=== PATIENT | female | born 1955 | race Caucasian/White ===

== ENCOUNTER → 2016-03-29 | Outpatient (CLI) | payer BC ==
[~2016-03-29] MED LIST: ACYC200C PO; BENZ200C25 PO; CYCL10TA9 PO; DIPH50CA PO; DOCU100C37 PO; ESTR1TAB24 PO; FERR220S12 PO; FLUT9.9S NS; GABA600T2 PO; HYDR-2889 PO; IBP800T PO; IBUP-1780 PO; L.AC1CAP6 PO; LEVO500T69 PO; LORA10TA2 PO; MEDR2.5T6 PO; MINE473O3 PO; OMEP20CA12 PO; OXYC-465 PO; PRD20T PO; TRAZ150T42 PO; VENL75TA6 PO
--- OUTSIDE RECORDS SUMMARY | 2016-03-29 09:27 | XMS REPORT | Continuity of Care Document ---
Author Author [facility] Organization [facility] Address Unknown Phone Unavailable Care Team Providers Care Helicopter Dispatcher Name Role Phone MARKS, MILLICENT MORENO PCP Insurance Providers Payer Name Policy Number Subscriber Name Relationship [facility] [id number] Johnathan Farias E 01 Advance Directives Directive Response Recorded Date/Time Advance Directives No 12/04/15 1:25pm Health Care Power of Technician'S Helper No 12/04/15 1:25pm Organ Donor No 12/04/15 1:25pm Resuscitation Status Full Code 12/04/15 1:25pm Problems No problem information available. Medications Current Home Medications Medication Dose Units Route Directions Days/Qty Instructions Start Date Omeprazole 20 Mg 20 Mg Oral Daily 11/22/12 Venlafaxine Hcl 75 Mg 75 Mg Oral Daily 11/22/12 Trazodone Hcl 150 Mg 150 Mg Oral Bedtime 11/22/12 Cyclobenzaprine Hcl (Flexeril) 10 Mg 1 Each Oral Three Times A Day And Prn 10 11/22/12 Fluticasone Propionate 9.9 Ml 9.9 Ml Nasal As Needed 12/13/14 Acyclovir 200 Mg 200 Mg Oral As Needed 12/13/14 Gabapentin 600 Mg 600 Mg Oral Three Times A Day 12/13/14 Diphenhydramine Hcl 50 Mg 50 Mg Oral As Needed as needed for Sleep 12/13/14 Mineral Oil 473 Ml 1 Tsp Oral As Needed as needed for Constipation 12/13/14 L.acidoph & ParacaseiB.lactis 1 Each 1 Each Oral Daily 12/13/14 Estradiol 1 Mg 1 Mg Oral Daily 12/13/14 Ibuprofen 800 Mg 800 Mg Oral Give Every 6 Hr On Schedule 60 12/20/14 Oxycodone Hcl/Acetaminophen 1 Each 1-2 Tab Oral Every 4HRS as needed for Pain 60 12/20/14 Docusate Sodium 100 Mg 100 Mg Oral Twice A Day 60 12/20/14 Past Home Medications Medication Directions Ordered Status Hydrocodone Bit/Acetaminophen 1 Each Tablet, 1 Each Oral Q4-6HR as needed 07/30 Discontinued Ferrous Sulfate 220 Mg/5 Ml Solution, 220 Mg Oral Daily 11/22/12 Discontinued Loratadine 10 Mg Tablet, 10 Mg Oral Daily 11/22/12 Discontinued Prednisone 20 Mg Tab, 40 Mg Oral Daily 11/22/12 Discontinued Benzonatate (Tessalon Perles) 200 Mg Capsule, 1 Each Oral Q8hr Prn 11/22/12 Discontinued Levofloxacin 500 Mg Tab, 1 Each Oral Daily 11/22/12 Discontinued Ibuprofen 800 Mg Tab, 800 Mg Oral Give Every 8 Hrs On Schedule 11/22/12 Discontinued Medroxyprogesterone Acetate 2.5 Mg Tablet, 2.5 Mg Oral Daily 12/13/14 Discontinued Social History Social History Problem Response Recorded Date/Time Alcohol Use Occasionally Uses 12/20/2014 5:41pm Recreational Drug Use No 12/20/2014 5:41pm Recent Foreign Travel No 12/04/2015 1:25pm Recent Infectious Disease Exposure No 12/04/2015 1:25pm Sexually Transmitted Disease Y HERPES 12/20/2014 5:41pm HIV/AIDS No 12/20/2014 5:41pm Do you dip or chew tobacco? No 12/20/2014 5:41pm Sexually Transmitted Disease Y HERPES 12/20/2014 5:41pm Hospital Discharge Instructions No hospital discharge instructions. Plan of Care Discharge Date 12/04/15 2:00pm Instructions/Education Provided DR. PASTRANA-POST EPIDURAL INST Prescriptions See Medication Section Functional Status No functional status results. Allergies, Adverse Reactions, Alerts Allergen Type Severity Reaction Status Last Updated Penicillins ([id number]) Adverse Reaction Intermediate rash, dyspnea Active 11/22/12 Immunizations No immunization records. Vital Signs Acute Vital Signs Vital Response Date/Time Temperature (Fahrenheit) 97.7 degrees F (97.6 - 99.5) 12/04/2015 1:36pm Temperature (Calculated Celsius) 36.57437 degrees C (36.4 - 37.5) 12/04/2015 1:36pm Temperature Source Tympanic 12/04/2015 1:36pm Pulse Rate (adult) 88 bpm (60 - 90) 12/04/2015 1:36pm Respiratory Rate 18 bpm (12 - 24) 12/04/2015 1:36pm O2 Sat by Pulse Oximetry 98 % (88 - 100) 12/04/2015 1:36pm Blood Pressure 125/65 mm Hg 12/04/2015 1:59pm Blood Pressure Mean 85 mm Hg 12/04/2015 1:59pm Pain Numeric Pain Scale 6 12/04/2015 1:35pm Height (Feet) 5 feet 12/04/2015 1:26pm Height (Inches) 5.00 inches 12/04/2015 1:26pm Height (Calculated Centimeters) 165.516973 cm 12/04/2015 1:26pm Weight (Pounds) 180 pounds 12/04/2015 1:26pm Weight (Ounces) 0.0 oz 12/04/2015 1:26pm Weight (Calculated Grams) 34640.63 gm 12/04/2015 1:26pm Weight (Calculated Kilograms) 81.459408 kilograms 12/04/2015 1:26pm Calculated BMI 30.0 12/04/2015 1:26pm Results No known relevant diagnostic tests, laboratory data and/or discharge summary. Procedures No known history of procedures. Encounters Encounter Location Arrival/Admit Date Discharge/Depart Date Attending Provider Departed Clinic [facility] 12/04/15 12:59pm 12/04/15 2: 00pm MONAE PASTRANA MD
--- NOTE | 2016-03-29 17:00 | Diagnostic Imaging Report ---
PROCEDURE: US abdomen complete. TECHNIQUE: Multiple real-time grayscale images were obtained over the abdomen in various projections. INDICATION: Generalized abdominal pain. FINDINGS: The pancreas is obscured by bowel gas. The distal abdominal aorta is visualized and is 1.7 cm in caliber, normal. The proximal and midabdominal aorta is obscured. The liver demonstrates no focal mass. There is hepatopetal flow in the portal vein. The gallbladder demonstrates no stones or wall thickening. No pericholecystic fluid. The CBD is obscured. No intrahepatic biliary dilatation is seen. The spleen is 10.8 cm in length, normal. The left kidney is 11.4 and the right kidney is 11.8 cm in length. No hydronephrosis. No focal parenchymal lesion is seen. No ascites or fluid collection is seen. The IVC is obscured by bowel loops. IMPRESSION: No definite abnormality. Dictated by: Dictated on workstation # [id number]
== END ==
LOC: RAD 09:23
PROVIDERS: ATTEND Internal Medicine
DX: R10.84 Generalized abdominal pain (principal)
CPT/HCPCS: 76700

== ENCOUNTER 2016-04-01 11:32 | Outpatient (CLI) | payer BC ==
[~2016-04-01] VITALS: Ht 165.1 cm; Wt 77.1 kg
--- OUTSIDE RECORDS SUMMARY | 2016-04-01 11:35 | XMS REPORT | Continuity of Care Document ---
Author Author [facility] Organization [facility] Address Unknown Phone Unavailable Care Team Providers Care Manager Corporate Strategy Name Role Phone MARKS, MILLICENT MORENO PCP Insurance Providers Payer Name Policy Number Subscriber Name Relationship [facility] [id number] Johnathan Farias E 01 Advance Directives Directive Response Recorded Date/Time Advance Directives No 12/04/15 1:25pm Health Care Power of Pulverizing And Sifting Operator No 12/04/15 1:25pm Organ Donor No 12/04/15 [...] Type Severity Reaction Status Last Updated Penicillins ([id number]) Adverse Reaction Intermediate rash, dyspnea Active 11/22/12 Immunizations No immunization records. Vital Signs Acute Vital Signs Vital Response Date/Time Temperature (Fahrenheit) 97.7 degrees F (97.6 - 99.5) 12/04/2015 1:36pm Temperature (Calculated Celsius) 36.37364 degrees C (36.4 - 37.5) 12/04/2015 1:36pm [...] 5.00 inches 12/04/2015 1:26pm Height (Calculated Centimeters) 165.285691 cm 12/04/2015 1:26pm Weight (Pounds) 180 pounds 12/04/2015 1:26pm Weight (Ounces) 0.0 oz 12/04/2015 1:26pm Weight (Calculated Grams) 88639.63 gm 12/04/2015 1:26pm Weight (Calculated Kilograms) 81.731643 kilograms 12/04/2015 1:26pm Calculated BMI 30.0 12/04/2015 1:26pm Results No known relevant diagnostic tests, laboratory data and/or discharge summary. Procedures No known history of procedures. Encounters Encounter Location Arrival/Admit Date Discharge/Depart Date Attending Provider Departed Clinic [facility] 12/04/15 12:59pm 12/04/15 2: 00pm MONAE PASTRANA MD
[2016-04-01] MEDS ORDERED: TRIAMCINOLONE ACET (KENALOG-40) 40 MG/ML 1 ML VIAL ONE (11:47)
[2016-04-01] MEDS ORDERED: BUPIVACAINE 0.25% 30 ML (SENSORCAINE) VIAL ONE (11:47)
[2016-04-01 11:53] VITALS: BP 109/69
[2016-04-01 12:38] VITALS: BP 115/65
--- NOTE | 2016-04-01 14:51 | Pain Medicine-Procedure ---
Procedure Pre-Op/Post-Op Diagnosis Diagnosis: Disc disorder with radiculopathy, lumbar Indications for Operation Low back pain Attending Surgeon Naya Procedure Date of Service: Apr 01, 2016 Procedure: Lumbar Epidural Steroid Injection at the L4-L5 level under Fluoroscopic Guidance Procedure: Patient was identified in the holding area. After risks, benefits, and alternatives were discussed with the patient, informed consent was obtained. Patient was brought to the fluoroscopy suite and placed prone on the procedure room table. A time out was performed. Vital signs were monitored throughout the procedure. The patients low back was prepped and draped in the usual sterile fashion. The patients skin was anesthetized using 2% Lidocaine. A Tuohy needle was inserted and advanced to the L4-L5 epidural space under fluoroscopic guidance using the loss of resistance technique and intermittent projection of fluoroscopy. There was no paresthesia with needle placement. The needle position was confirmed in both the AP and lateral view. After negative aspiration 2ml of contrast was injected under live fluoroscopy which showed good spread of the contrast in the epidural space at the appropriate level, there was no intravascular or subarachnoid spread. Again, after negative aspiration for heme or CSF, 2 ml of 0.25% Bupivicaine, 2ml of preservative free normal saline, and 80mg of Kenalog was injected. The needle was removed and a sterile bandage was placed and the patient was transferred to the recovery area in stable condition. After a brief period of observation, patient was discharged to home with no new neurological deficits and no apparent complications. Complications None MONAE PASTRANA MD Apr 01, 2016 2:51 pm
== END 2016-04-01 12:39 ==
LOC: CARD 11:32
PROVIDERS: ATTEND Pain Medicine Pain Medicine
DX: M51.16 Intervertebral disc disorders with radiculopathy, lumbar region (principal); M50.13 Cervical disc disorder with radiculopathy, cervicothoracic region; Z79.899 Other long term (current) drug therapy
CPT/HCPCS: 62323

== ENCOUNTER 2016-06-17 11:47 | Outpatient (CLI) | payer BC ==
[~2016-06-17] VITALS: Ht 165.1 cm; Wt 79.4 kg
[2016-06-17] MEDS ORDERED: DEXAMETHASONE PF 10 MG/ML (DECADRON) VIAL ONE (11:49)
[2016-06-17 11:59] VITALS: BP 129/74
[2016-06-17 12:35] VITALS: BP 116/58
--- NOTE | 2016-06-17 14:33 | Pain Medicine-Procedure ---
Procedure Pre-Op/Post-Op Diagnosis Diagnosis: disc disorder with radiculopathy, cervical Indications for Operation Neck pain Attending Surgeon Naya Procedure Date of Service: June 17, 2016 Procedure: Cervical Epidural Steroid Injection at the C7-T1 Level under Fluoroscopic Guidance Procedure: Pt was identified in the holding area. After risks, benefits, and alternatives were discussed with the patient, informed consent was obtained. An IV was placed by nursing staff prior to procedure. Patient was brought to the fluoroscopy suite and placed prone on the operating table. A time out was performed. Vital signs were monitored throughout the procedure. The patients neck was prepped and draped in the usual sterile fashion. The patients skin was anesthetized using 1% Lidocaine. A 18 gauge tuohy needle was inserted and advanced to the C7-T1 epidural space under fluoroscopic guidance using the loss of resistance technique. The needle position was confirmed in the AP and lateral view. After negative aspiration 2 ml of non-ionic contrast was injected under live fluoroscopy which showed good spread of the contrast in the epidural space at the appropriate level, there was no intravascular or subarachnoid spread. Again, after negative aspiration, 3 ml of preservative free normal saline and 10 mg of dexamethasone was injected. The needle was removed and the patient was transferred to the recovery area in stable condition. And after a brief period of observation was discharged to home in stable condition with no new neurologic deficits. Complications None MONAE PASTRANA MD June 17, 2016 2:32 pm
== END 2016-06-17 12:41 | disposition home or self-care (01) ==
LOC: CARD 11:47
PROVIDERS: ATTEND Pain Medicine Pain Medicine
DX: M50.13 Cervical disc disorder with radiculopathy, cervicothoracic region (principal); M51.16 Intervertebral disc disorders with radiculopathy, lumbar region; Z79.899 Other long term (current) drug therapy
CPT/HCPCS: 62321

== ENCOUNTER → 2016-11-18 | Outpatient (CLI) | payer BC ==
--- NOTE | 2016-11-18 11:29 | Diagnostic Imaging Report ---
Ultrasound of the neck. INDICATION: Lump in the left upper neck. FINDINGS: The right thyroid lobe is 4.9 x 1.7 x 1.2 CM. The left lobe is 4.4 x 1.6 x 1.1 CM. There are lesions in the right thyroid lobe including a simple cyst measuring 0.7 CM at mid right thyroid level and inferiorly there is a 0.9 x 0.5 x 0.6 cm hypoechoic lesion with peripheral vascularity seen. In the right side of the thyroid isthmus, there is also a nodule measuring 0.7 x 0.3 x 0.6 CM with internal vascularity. The left lobe demonstrates no nodules. The rest of neck is also scanned with no mass or lymphadenopathy seen. IMPRESSION: Nonspecific subcentimeter nodules in the right thyroid lobe and in the thyroid isthmus may relate to multinodular goiter. Dictated by: Dictated on workstation # [id number]
== END ==
LOC: RAD 09:49
PROVIDERS: ATTEND Internal Medicine
DX: E04.2 Nontoxic multinodular goiter (principal)
CPT/HCPCS: 76536

== ENCOUNTER → 2016-12-30 | Outpatient (CLI) | payer BC ==
--- NOTE | 2017-01-01 10:02 | Diagnostic Imaging Report ---
EXAMINATION: Bilateral screening mammogram 2D views with tomosynthesis. The current study was also evaluated with a Computer Aided Detection (CAD) system. INDICATION: Screening. PERSONAL HISTORY: No current complaints stated on the questionnaire. COMPARISON: 10/31/2015. FINDINGS: The breasts are composed of heterogeneously dense parenchyma which may decrease mammographic sensitivity. Punctate benign-appearing calcifications are seen. Allowing for technique and positional differences, no suspicious change is seen. IMPRESSION: Dense breasts with no definite change. ACR BI-RADS Category 2: Benign findings. Result letter will be mailed to the patient. Note: At least 10% of breast cancer is not imaged by mammography. Dictated by: Dictated on workstation # [id number]
== END ==
LOC: RAD 10:52
PROVIDERS: ATTEND Internal Medicine
DX: Z12.31 Encounter for screening mammogram for malignant neoplasm of breast (principal)
CPT/HCPCS: 77067

== ENCOUNTER → 2017-01-16 | Outpatient (CLI) | payer BC ==
[~2017-01-16] MED LIST changes: +CATHETER FLUSH 10 ML SYR IV PRN
--- NOTE | 2017-01-16 12:51 | Diagnostic Imaging Report ---
EXAMINATION: HIDA with EF measurements Indication: Abdominal pain TECHNIQUE: After the intravenous administration of 5.4 mCi of Tc 99m Choletec, imaging over the abdomen was obtained. This was followed by administration of Ensure orally to stimulate intrinsic CCK secretion, followed by continued imaging with ejection fraction measured. FINDINGS: There is homogeneous uptake in the liver with prompt bile duct and gallbladder filling seen. Bowel activity is seen at 15 minutes. Based on further imaging and gallbladder area of interest activity measurements after the administration of Ensure, the gallbladder ejection fraction is estimated at 57%. IMPRESSION: 1. Normal hepatobiliary uptake and Gallbladder filling. 2. Normal gallbladder ejection fraction. Dictated by: Dictated on workstation # [id number]
== END ==
LOC: CARD 09:48
PROVIDERS: ATTEND Obstetrics & Gynecology
DX: R10.11 Right upper quadrant pain (principal)
CPT/HCPCS: 78227

== ENCOUNTER → 2017-07-10 | Outpatient (CLI) | payer BC ==
[~2017-07-10] MED LIST changes: -CATHETER FLUSH 10 ML SYR IV PRN
--- NOTE | 2017-07-10 19:31 | Diagnostic Imaging Report ---
PROCEDURE: US Thyroid. TECHNIQUE: Multiple real-time grayscale images were obtained of the thyroid in various projections. INDICATION: Thyroid nodules. COMPARISON: Comparison is made with prior thyroid ultrasound from 11/18/2016. FINDINGS: The right lobe of the thyroid measures 5.0 x 1.6 x 1.7 cm and the left lobe measures 4.4 x 1.4 x 1.0 cm. Hypoechoic nodules in the right lobe are again noted. A hypoechoic nodule in the lower pole measures approximately 7 mm x 5 mm. There appears to be a probable colloid cyst measuring 7 mm x 6 mm. More medially in the region of the isthmus, a nodule measures 7 mm x 5 mm. No new mass is detected. No dominant mass is detected. IMPRESSION: Stable right lobe thyroid nodules when compared with examination from 11/18/2016. No dominant thyroid mass is detected. Dictated by: Dictated on workstation # [id number]
== END ==
LOC: RAD 10:57
PROVIDERS: ATTEND Otolaryngology Otolaryngology/Facial Plastic Surgery
DX: E04.2 Nontoxic multinodular goiter (principal)
CPT/HCPCS: 76536

== ENCOUNTER → 2017-12-31 | Outpatient (CLI) | payer BC ==
--- NOTE | 2018-01-01 09:06 | Diagnostic Imaging Report ---
INDICATION: Routine screening. COMPARISON: 12/30/2016 and 10/31/2015. TECHNIQUE: 2D and 3D bilateral screening mammography was performed with CAD. FINDINGS: Both breasts are heterogeneously dense, limiting the sensitivity of mammography. A benign nodule in the outer right breast at posterior depth appears stable, most consistent with an intraparenchymal lymph node. A circumscribed nodule in the retroareolar left breast also appears stable. No new mass or malignant appearing microcalcifications are seen. The axillae are unremarkable. IMPRESSION: No mammographic features suspicious for malignancy are identified. ACR BI-RADS Category 2: Benign findings. Result letter will be mailed to the patient. Note: At least 10% of breast cancer is not imaged by mammography. Dictated by: Dictated on workstation # [id number]
== END ==
LOC: RAD 14:52
PROVIDERS: ATTEND Internal Medicine
DX: Z12.31 Encounter for screening mammogram for malignant neoplasm of breast (principal)
CPT/HCPCS: 77067

== ENCOUNTER 2018-04-27 14:33 | Outpatient (CLI) | payer BC ==
[~2018-04-27] VITALS: Ht 165.1 cm; Wt 74.8 kg
[~2018-04-27 14:33] MED LIST changes: +BIOT10006 PO; +CHRO1TAB7 PO; +DIPH25CA79 PO; +DULO30CA3 PO; -GABA600T2 PO; +GBPN600T PO; +MELA10CA2 PO; +MULT-1029 PO; +OXYC-464 PO; +TRAZ150T72 PO
== END 2018-04-27 14:39 | disposition home or self-care (01) ==
LOC: PREOP 14:33
PROVIDERS: ATTEND Surgery
DX: Z01.818 Encounter for other preprocedural examination (principal)

== ENCOUNTER 2018-04-29 08:58 | Day surgery (SDC) | payer BC ==
[~2018-04-29] VITALS: Ht 162.6 cm; Wt 74.8 kg
--- OUTSIDE RECORDS SUMMARY | 2018-04-29 09:01 | XMS REPORT | Clinical Summary ---
Author Author User, [employer] Organization Manda Pearson DO FACP Address Unknown Phone Allergies, Adverse Reactions, Alerts Allergy Name Reaction Description Start Date Severity Status Provider PENICILLIN Critical Active Manda Pearson Conditions or Problems Problem Name Problem Code Onset Date Status Entry Date Provider Comment Standard Description Annotate NEUROPATHY, IDIOPATHIC PERIPHERAL 356.9 Active Manda Pearson Unspecified idiopathic peripheral neuropathy CARPAL TUNNEL SYNDROME, BILATERAL 354.0 Active Manda Pearson Carpal tunnel syndrome MENORRHAGIA 626.2 Active Manda Pearson Excessive or frequent menstruation KERATOSIS, SEBORRHEIC, INFLAMED 702.11 Active Manda Pearson Inflamed seborrheic keratosis LOSS, 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 Manda Pearson 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 Active Manda Pearson Herpes simplex without mention of complication ANEMIA, IRON DEFICIENCY NEC 280.8 Active Manda Pearson Other specified iron deficiency anemias ALLERGIC RHINITIS, SEASONAL 477.0 Active Manda Pearson Allergic rhinitis due to pollen ANXIETY 300.00 Active Manda Pearson Anxiety state, unspecified DEPRESSION 311 Active Manda Pearson Depressive disorder, not elsewhere classified GERD 530.81 Active Manda Pearson Esophageal reflux LUMBAR RADICULOPATHY, RIGHT 724.4 Active Manda Pearson Thoracic or lumbosacral neuritis or radiculitis, unspecified Medication List Medication Instructions Start Date Stop Date Generic Name NDC Status Provider Patient Instruction MEDROL (CASIMIRO) 4 MG TABS As directed METHYLPREDNISOLONE 45131830815 No Longer Active Manda Pearson VITAMIN B-12 1000 MCG TABS 1 PO daily CYANOCOBALAMIN 33055826968 Active Manda Pearson NEURONTIN 100 MG CAP 1 PO TID GABAPENTIN 70500892645 Active Manda Pearson FEROSUL 220 (44 FE) MG/5ML ELIX TAKE 5ML BY MOUTH DAILY FERROUS SULFATE 66799745948 Active Marielle Carpenter [facility] MINERAL OIL OIL 1 TSP DAILY FOR CONSTIPATION MINERAL OIL 67270558074 Active Manda Pearson DIPHENHYDRAMINE HCL 50 MG CAPS ONE PO AT HS FOR INSOMNIA DIPHENHYDRAMINE HCL 81493567372 Active Manda Pearson PROBIOTIC CAPS DAILY FOR CONSTIPATION PROBIOTIC PRODUCT 20991360211 Active Manda Pearson IBUPROFEN 200 MG TAB 1-3 TABS PO Q 8RS PRN IBUPROFEN 84843563195 Active Manda Pearson LORTAB 7.5-325 MG TABS 1-2 PO Q 4-6 HRS PRN PAIN HYDROCODONE- ACETAMINOPHEN 96350732405 Active Manda Pearson CYCLOBENZAPRINE HCL 10 MG TABS 1 PO Q 8HRS PRN NECK PAIN CYCLOBENZAPRINE HCL 56908255628 Active Marielle Carpenter ACYCLOVIR 200 MG CAPS 1-5 TABS DAILY PRN PERPES ACYCLOVIR 71303782745 Active Marielle Carpenter FLUTICASONE PROPIONATE 50 MCG/ACT SUSP NEEDED FOR ALLERGIES FLUTICASONE PROPIONATE 05141319962 Active Marielle Carpenter TRAZODONE HCL 150 MG TABS 1 PO AT HS FOR SLEEP TRAZODONE HCL 28006919687 Active Marielle Carpenter OMEPRAZOLE 20 MG TBEC ONE PO DAILY OMEPRAZOLE 90952396439 Active Marielle Jayden NECON 0.5/0.75/1-35 MG-MCG TABS DIRECTED NORETHIN- ETH ESTRAD TRIPHASIC 21800760266 Active Brianna Hughes EFFEXOR XR 75 MG [id number] 1 PO DAILY VENLAFAXINE HCL 26213759938 Active Marielle Jayden Vital Signs Date Name Value Unit Range Description blood pressure, diastolic - 8462-4 76 mm[Hg] BP headley blood pressure, systolic - 8480-6 121 mm[Hg] BP sys pulse rate E&M - 8867-4 74 /min Heart rate respiratory rate E&M - 9279-1 14 /min Resp rate temperature E&M 98.6 [degF] Body temperature weight E&M - 3141-9 180 [lb_av] Weight Measured blood pressure, diastolic - 8462-4 80 mm[Hg] BP headley blood pressure, systolic - 8480-6 152 mm[Hg] BP sys pulse rate E&M - 8867-4 96 /min Heart rate respiratory rate E&M - 9279-1 14 /min Resp rate temperature E&M 98.6 [degF] Body temperature weight E&M - 3141-9 185 [lb_av] Weight Measured blood pressure, diastolic - 8462-4 78 mm[Hg] BP headley blood pressure, systolic - 8480-6 140 mm[Hg] BP sys height E&M - 8302-2 65 [in_us] Bdy height pulse rate E&M - 8867-4 78 /min Heart rate respiratory rate E&M - 9279-1 14 /min Resp rate weight E&M - 3141-9 177 [lb_av] Weight Measured Diagnostic Results Date Name Value Unit Range Description Clinical Lists Update: CBC,CMP,CHOL,TRIG,FERRITIN - Chemistry urea nitrogen, blood 10 mg/dL alanine aminotransferase (SGPT), serum 16 U/L bilirubin, serum, total 0.3 mg/dL protein, total, serum 6.7 g/dL potassium, serum 4.1 mmol/L ferritin, serum 35 ng/mL creatinine, serum 0.70 mg/dL triglyceride, serum, fasting 277 mg/dL sodium, serum 137 mmol/L glucose, plasma fasting 89 mg/dL Estimated Glomerular Filtration Rate (calc) 96 mL/min/1.73m2 albumin, serum 3.9 g/dL alkaline phosphatase, serum 58 U/L aspartate aminotransferase (SGOT), serum 15 U/L calcium, serum 9.0 mg/dL chloride, serum 100 mmol/L cholesterol, serum 211 mg/dL carbon dioxide, venous blood 26 mmol/L Clinical Lists Update: CBC,CMP,CHOL,TRIG,FERRITIN - Hematology hematocrit, blood 31.7 % red blood cell distribution width 14.9 % mean corpuscular volume, RBC 84.9 fL leukocyte count, blood 7.9 10*3/mm3 erythrocyte (RBC) count 3.73 10*6/mm3 platelet count 371 10*3/mm3 hemoglobin, blood 10.3 g/dL Clinical Lists Update: CBC,CMP,FLP,TSH,ESR,HGA1C,FERRITIN - Chemistry albumin, serum 4.5 g/dL alkaline phosphatase, serum 63 U/L urea nitrogen, blood 17 mg/dL calcium, serum 9.8 mg/dL chloride, serum 100 mmol/L cholesterol, serum 240 mg/dL carbon dioxide, venous blood 27 mmol/L creatinine, serum 0.80 mg/dL ferritin, serum 30 ng/mL HDL cholesterol, serum 45 mg/dL hemoglobin A1C, blood, as % of total hemoglobin 5.9 % thyroid stimulating hormone, serum 2.11 u[iU]/mL LDL cholesterol, serum 129 mg/dL protein, total, serum 7.5 g/dL aspartate aminotransferase (SGOT), serum 14 U/L alanine aminotransferase (SGPT), serum 15 U/L bilirubin, serum, total 0.3 mg/dL triglyceride, serum, fasting 329 mg/dL sodium, serum 139 mmol/L cholesterol/HDL ratio, serum, percent 5.3 glucose, plasma fasting 106 mg/dL Estimated Glomerular Filtration Rate (calc) 82 mL/min/1.73m2 potassium, serum 4.7 mmol/L Clinical Lists Update: CBC,CMP,FLP,TSH,ESR,HGA1C,FERRITIN - Hematology red blood cell distribution width 15.8 % mean corpuscular volume, RBC 81.8 fL leukocyte count, blood 8.1 10*3/mm3 erythrocyte (RBC) count 4.16 10*6/mm3 platelet count 399 10*3/mm3 hemoglobin, blood 11.5 g/dL hematocrit, blood 34.0 % erythrocyte sedimentation rate 41 mm/h Encounters Code Encounter Date Provider Facility CPT-29984 Ofc Vst, Est Level III 16:48:14 CDT Manda Pearson DO, FACJak CPT-68934 Ofc Vst, Est Level IV 15:12:50 CDT Manda Pearson [facility] CPT-18890 Ofc Vst, New Level IV 14:55:47 [employer] Manda Pearson DO, FACP
--- OUTSIDE RECORDS SUMMARY | 2018-04-29 09:01 | XMS REPORT | Clinical Summary ---
Author Author User, [employer] Organization Manda Pearson DO, FACP Address Unknown Phone Allergies, Adverse Reactions, [...] GERD 530.81 Active Manda Pearson Esophageal reflux Medication List Medication Instructions Start Date Stop Date Generic Name [facility] Status Provider Patient Instruction VITAMIN B-12 1000 MCG TABS 1 PO daily CYANOCOBALAMIN 43668197385 Active Manda Chadwickanne Lili NEURONTIN 100 MG CAP 1 PO TID GABAPENTIN 84594785016 Active Manda Dentonner FEROSUL 220 (44 FE) MG/5ML ELIX TAKE 5ML BY MOUTH DAILY FERROUS SULFATE 68778547356 Active Marielle Carpenter [facility] MINER[facility] OIL OIL 1 TSP DAILY FOR CONSTIPATION MINERAL OIL 41191285629 Active Manda Kareen Lili DIPHENHYDRAMINE HCL 50 MG CAPS ONE PO AT HS FOR INSOMNIA DIPHENHYDRAMINE HCL 37376444811 Active Mandakorin Hawkinse Lili PROBIOTIC CAPS DAILY FOR CONSTIPATION PROBIOTIC PRODUCT 94000728604 Active Manda Pearson IBUPROFEN 200 MG TAB 1-3 TABS PO Q 8RS PRN IBUPROFEN 67447476768 Active Manda Pearson LORTAB 7.5-325 MG TABS 1-2 PO Q 4-6 HRS PRN PAIN HYDROCODONE- ACETAMINOPHEN 16989900260 Active Marielle Carpenter CYCLOBENZAPRINE HCL 10 MG TABS 1 PO Q 8HRS PRN NECK PAIN CYCLOBENZAPRINE HCL 96485445677 Active Marielle Carpenter ACYCLOVIR 200 MG CAPS 1-5 TABS DAILY PRN PERPES ACYCLOVIR 33717932546 Active Marielle Carpenter FLUTICASONE PROPIONATE 50 MCG/ACT SUSP NEEDED FOR ALLERGIES FLUTICASONE PROPIONATE 94858037717 Active Delores Ong TRAZODONE HCL 150 MG TABS 1 PO AT HS FOR SLEEP TRAZODONE HCL 37699028501 Active Marielle Carpenter OMEPRAZOLE 20 MG TBEC ONE PO DAILY OMEPRAZOLE 16206427839 Active Marielle Carpenter NECON 7/7/7 0.5/0.75/1-35 MG-MCG TABS DIRECTED NORETHIN- ETH ESTRAD TRIPHASIC 51072611589 Active Brianna Main EFFEXOR XR 75 MG [id number] 1 PO DAILY VENLAFAXINE HCL 51494131677 Active Brianna Main Vital Signs Date Name Value Unit Range Description blood pressure, diastolic - 8462-4 80 mm[Hg] [...] Value Unit Range Description Clinical Lists Update: CBC,CMP,FLP,TSH,ESR,HGA1C,FERRITIN - Chemistry chloride, serum 100 mmol/L sodium, serum 139 mmol/L cholesterol, serum 240 mg/dL carbon dioxide, venous blood 27 mmol/L creatinine, serum 0.80 mg/dL Estimated Glomerular Filtration Rate (calc) 82 mL/min/1.73m2 cholesterol/HDL ratio, serum, percent 5.3 alanine aminotransferase (SGPT), serum 15 U/L aspartate aminotransferase (SGOT), serum 14 U/L protein, total, serum 7.5 g/dL potassium, serum 4.7 mmol/L thyroid stimulating hormone, serum 2.11 u[iU]/mL triglyceride, serum, fasting 329 mg/dL calcium, serum 9.8 mg/dL ferritin, serum 30 ng/mL glucose, plasma fasting 106 mg/dL HDL cholesterol, serum 45 mg/dL hemoglobin A1C, blood, as % of total hemoglobin 5.9 % LDL cholesterol, serum 129 mg/dL albumin, serum 4.5 g/dL alkaline phosphatase, serum 63 U/L bilirubin, serum, total 0.3 mg/dL urea nitrogen, blood 17 mg/dL Clinical Lists Update: CBC,CMP,FLP,TSH,ESR,HGA1C,FERRITIN - Hematology platelet count 399 10*3/mm3 red blood cell distribution width 15.8 % hemoglobin, blood 11.5 g/dL erythrocyte (RBC) count 4.16 10*6/mm3 hematocrit, blood 34.0 % leukocyte count, blood 8.1 10*3/mm3 mean corpuscular volume, RBC 81.8 fL erythrocyte sedimentation rate 41 mm/h Encounters Code Encounter Date Provider Facility CPT-20924 Ofc Vst, Est Level IV 15:12:50 CDT [facility] CPT-33611 Ofc Vst, New Level IV 14:55:47 RRT Manda Pearson DO, FACP
--- OUTSIDE RECORDS SUMMARY | 2018-04-29 09:01 | XMS REPORT | Clinical Summary ---
Author Author User, [employer] Organization Manda Pearson DO FACP Address Unknown [...] (CASIMIRO) 4 MG TABS As directed METHYLPREDNISOLONE [id number] No Longer Active Manda Pearson VITAMIN B-12 1000 MCG TABS 1 PO daily CYANOCOBALAMIN 43756051760 Active Manda Pearson NEURONTIN 100 MG CAP 1 PO TID GABAPENTIN 24270791397 Active Manda Pearson FEROSUL 220 (44 FE) MG/5ML ELIX TAKE 5ML BY MOUTH DAILY FERROUS SULFATE 00792536135 Active Marielle Carpenter [facility] MINERAL OIL OIL 1 TSP DAILY FOR CONSTIPATION MINERAL OIL 75022823305 Active Manda Pearson DIPHENHYDRAMINE HCL 50 MG CAPS ONE PO AT HS FOR INSOMNIA DIPHENHYDRAMINE HCL 83986325180 Active Manda Pearson PROBIOTIC CAPS DAILY FOR CONSTIPATION PROBIOTIC PRODUCT 61222855721 Active Manda Pearson IBUPROFEN 200 MG TAB 1-3 TABS PO Q 8RS PRN IBUPROFEN 10586710587 Active Manda Pearson LORTAB 7.5-325 MG TABS 1-2 PO Q 4-6 HRS PRN PAIN HYDROCODONE- ACETAMINOPHEN 42843658451 Active Manda Pearson CYCLOBENZAPRINE HCL 10 MG TABS 1 PO Q 8HRS PRN NECK PAIN CYCLOBENZAPRINE HCL 73119201361 Active Marielle Carpenter ACYCLOVIR 200 MG CAPS 1-5 TABS DAILY PRN PERPES ACYCLOVIR 22660965313 Active Marielle Carpenter FLUTICASONE PROPIONATE 50 MCG/ACT SUSP NEEDED FOR ALLERGIES FLUTICASONE PROPIONATE 19115697296 Active Marielle Carpenter TRAZODONE HCL 150 MG TABS 1 PO AT HS FOR SLEEP TRAZODONE HCL 75655724124 Active Marielle Carpenter OMEPRAZOLE 20 MG TBEC ONE PO DAILY OMEPRAZOLE 53566116568 Active Marielle Jayden NECON 0.5/0.75/1-35 MG-MCG TABS DIRECTED NORETHIN- ETH ESTRAD TRIPHASIC 17963764932 Active Brianna Hughes EFFEXOR XR 75 MG [id number] 1 PO DAILY VENLAFAXINE HCL 01105792006 Active Marielle Jayden Vital Signs Date Name [...] mm/h Encounters Code Encounter Date Provider Facility CPT-00612 Ofc Vst, Est Level III 16:48:14 CDT Manda Pearson DO, FACJak CPT-93379 Ofc Vst, Est Level IV 15:12:50 CDT Manda Pearson [place] [facility] CPT-20744 Ofc Vst, New Level IV 14:55:47 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
--- OUTSIDE RECORDS SUMMARY | 2018-04-29 09:01 | XMS REPORT | Clinical Summary ---
Author Author User, [employer] Organization Manda Pearson DO FACP Address Unknown [...] (CASIMIRO) 4 MG TABS As directed METHYLPREDNISOLONE 83454087745 No Longer Active Manda Pearson VITAMIN B-12 1000 MCG TABS 1 PO daily CYANOCOBALAMIN 09016657072 Active Manda Pearson NEURONTIN 100 MG CAP 1 PO TID GABAPENTIN 94382249292 Active Manda Pearson FEROSUL 220 (44 FE) MG/5ML ELIX TAKE 5ML BY MOUTH DAILY FERROUS SULFATE 53170443603 Active Marielle Carpenter [facility] MINERAL OIL OIL 1 TSP DAILY FOR CONSTIPATION MINERAL OIL 52361856091 Active Manda Pearson DIPHENHYDRAMINE HCL 50 MG CAPS ONE PO AT HS FOR INSOMNIA DIPHENHYDRAMINE HCL 39341393729 Active Manda Pearson PROBIOTIC CAPS DAILY FOR CONSTIPATION PROBIOTIC PRODUCT 93439832490 Active Manda Pearson IBUPROFEN 200 MG TAB 1-3 TABS PO Q 8RS PRN IBUPROFEN 73825048893 Active Manda Pearson LORTAB 7.5-325 MG TABS 1-2 PO Q 4-6 HRS PRN PAIN HYDROCODONE- ACETAMINOPHEN 65922375524 Active Manda Pearson CYCLOBENZAPRINE HCL 10 MG TABS 1 PO Q 8HRS PRN NECK PAIN CYCLOBENZAPRINE HCL 60491460620 Active Marielle Carpenter ACYCLOVIR 200 MG CAPS 1-5 TABS DAILY PRN PERPES ACYCLOVIR 18164190094 Active Marielle Carpenter FLUTICASONE PROPIONATE 50 MCG/ACT SUSP NEEDED FOR ALLERGIES FLUTICASONE PROPIONATE 19805613931 Active Marielle Carpenter TRAZODONE HCL 150 MG TABS 1 PO AT HS FOR SLEEP TRAZODONE HCL 89005690619 Active Marielle Carpenter OMEPRAZOLE 20 MG TBEC ONE PO DAILY OMEPRAZOLE 78295789412 Active Marielle Jayden NECON 0.5/0.75/1-35 MG-MCG TABS DIRECTED NORETHIN- ETH ESTRAD TRIPHASIC 89276248681 Active Brianna Hughes EFFEXOR XR 75 MG [id number] 1 PO DAILY VENLAFAXINE HCL 50695810438 Active Marielle Lylestis Vital Signs Date Name Value Unit Range [...] Description Clinical Lists Update: CBC,CMP,FLP,TSH,ESR,HGA1C,FERRITIN - Chemistry Estimated Glomerular Filtration Rate (calc) 82 mL/min/1.73m2 glucose, plasma fasting 106 mg/dL albumin, serum 4.5 g/dL alkaline phosphatase, serum 63 U/L urea nitrogen, blood 17 mg/dL calcium, serum 9.8 mg/dL chloride, serum 100 mmol/L cholesterol, serum 240 mg/dL carbon dioxide, venous blood 27 mmol/L cholesterol/HDL ratio, serum, percent 5.3 sodium, serum 139 mmol/L triglyceride, serum, fasting 329 mg/dL bilirubin, serum, total 0.3 mg/dL alanine aminotransferase (SGPT), serum 15 U/L aspartate aminotransferase (SGOT), serum 14 U/L protein, total, serum 7.5 g/dL potassium, serum 4.7 mmol/L LDL cholesterol, serum 129 mg/dL thyroid stimulating hormone, serum 2.11 u[iU]/mL hemoglobin A1C, blood, as % of total hemoglobin 5.9 % HDL cholesterol, serum 45 mg/dL ferritin, serum 30 ng/mL creatinine, serum 0.80 mg/dL Clinical Lists Update: CBC,CMP,FLP,TSH,ESR,HGA1C,FERRITIN - Hematology hematocrit, blood 34.0 % hemoglobin, blood 11.5 g/dL platelet count 399 10*3/mm3 erythrocyte (RBC) count 4.16 10*6/mm3 leukocyte count, blood 8.1 10*3/mm3 mean corpuscular volume, RBC 81.8 fL red blood cell distribution width 15.8 % erythrocyte sedimentation rate 41 mm/h Encounters Code Encounter Date Provider Facility CPT-10253 Ofc Vst, Est Level III 16:48:14 CDT Manda Pearson DO, SAMEER CPT-99283 Ofc Vst, Est Level IV 15:12:50 CDT Manda Kareen Pearson [facility] CPT-57340 Ofc Vst, New Level IV 14:55:47 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
--- OUTSIDE RECORDS SUMMARY | 2018-04-29 09:01 | XMS REPORT | Clinical Summary ---
Author Author User, [employer] Organization Manda Pearson DO, FACP Address Unknown [...] Instructions Start Date Stop Date Generic Name [facility] Status Provider Patient Instruction VITAMIN B-12 1000 MCG TABS 1 PO daily CYANOCOBALAMIN 44587639928 Active Manda Chadwickanne Lili NEURONTIN 100 MG CAP 1 PO TID GABAPENTIN 14968777214 Active Manda Dentonner FEROSUL 220 (44 FE) MG/5ML ELIX TAKE 5ML BY MOUTH DAILY FERROUS SULFATE 49441610685 Active Marielle Carpenter [facility] MINERAL OIL OIL 1 TSP DAILY FOR CONSTIPATION MINERAL OIL 38340582959 Active Manda Kareen Lili DIPHENHYDRAMINE HCL 50 MG CAPS ONE PO AT HS FOR INSOMNIA DIPHENHYDRAMINE HCL 07777921808 Active Mandakorin Haw[place] Lili PROBIOTIC CAPS DAILY FOR CONSTIPATION PROBIOTIC PRODUCT 76629253597 Active Manda Pearson IBUPROFEN 200 MG TAB 1-3 TABS PO Q 8RS PRN IBUPROFEN 80320969586 Active Manda Pearson LORTAB 7.5-325 MG TABS 1-2 PO Q 4-6 HRS PRN PAIN HYDROCODONE- ACETAMINOPHEN 82839402712 Active Marielle Carpenter CYCLOBENZAPRINE HCL 10 MG TABS 1 PO Q 8HRS PRN NECK PAIN CYCLOBENZAPRINE HCL 38419038022 Active Marielle Carpenter ACYCLOVIR 200 MG CAPS 1-5 TABS DAILY PRN PERPES ACYCLOVIR 49981792712 Active Marielle Carpenter FLUTICASONE PROPIONATE 50 MCG/ACT SUSP NEEDED FOR ALLERGIES FLUTICASONE PROPIONATE 20578022725 Active Delores Ong TRAZODONE HCL 150 MG TABS 1 PO AT HS FOR SLEEP TRAZODONE HCL 81976000937 Active Marielle Carpenter OMEPRAZOLE 20 MG TBEC ONE PO DAILY OMEPRAZOLE 51425987322 Active Marielle Carpenter NECON 7/7/7 0.5/0.75/1-35 MG-MCG TABS DIRECTED NORETHIN- ETH ESTRAD TRIPHASIC 84093761977 Active Brianna Main EFFEXOR XR 75 MG [id number] 1 PO DAILY VENLAFAXINE HCL 30676196162 Active Marielle Carpenter Vital Signs Date Name Value Unit Range [...] mm/h Encounters Code Encounter Date Provider Facility CPT-07359 Ofc Vst, Est Level IV 15:12:50 CDT Manda [facility] CPT-77451 Ofc Vst, New Level IV 14:55:47 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
--- OUTSIDE RECORDS SUMMARY | 2018-04-29 09:02 | XMS REPORT | Clinical Summary ---
Author Author User, [email or web address] Organization Manda Pearson DO FACP Address Unknown [...] (CASIMIRO) 4 MG TABS As directed METHYLPREDNISOLONE 67358152448 Active Manda Pearson VITAMIN B-12 1000 MCG TABS 1 PO daily CYANOCOBALAMIN 21381075054 Active Manda Pearson NEURONTIN 100 MG CAP 1 PO TID GABAPENTIN 75362829362 Active Manda Pearson FEROSUL 220 (44 FE) MG/5ML ELIX TAKE 5ML BY MOUTH DAILY FERROUS SULFATE 33590670362 Active Marielle Carpenter [facility] MINERAL OIL OIL 1 TSP DAILY FOR CONSTIPATION MINERAL OIL 34405000178 Active Manda Pearson DIPHENHYDRAMINE HCL 50 MG CAPS ONE PO AT HS FOR INSOMNIA DIPHENHYDRAMINE HCL 51811358398 Active Manda Pearson PROBIOTIC CAPS DAILY FOR CONSTIPATION PROBIOTIC PRODUCT 11458115843 Active Manda Pearson IBUPROFEN 200 MG TAB 1-3 TABS PO Q 8RS PRN IBUPROFEN 72015843950 Active Manda Pearson LORTAB 7.5-325 MG TABS 1-2 PO Q 4-6 HRS PRN PAIN HYDROCODONE- ACETAMINOPHEN 88476223238 Active Manda Pearson CYCLOBENZAPRINE HCL 10 MG TABS 1 PO Q 8HRS PRN NECK PAIN CYCLOBENZAPRINE HCL 60166986348 Active Marielle Carpenter ACYCLOVIR 200 MG CAPS 1-5 TABS DAILY PRN PERPES ACYCLOVIR 54492617282 Active Marielle Carpenter FLUTICASONE PROPIONATE 50 MCG/ACT SUSP NEEDED FOR ALLERGIES FLUTICASONE PROPIONATE 41319019629 Active Delores Moreno TRAZODONE HCL 150 MG TABS 1 PO AT HS FOR SLEEP TRAZODONE HCL 56052176989 Active Marielle Carpenter OMEPRAZOLE 20 MG TBEC ONE PO DAILY OMEPRAZOLE 75805537780 Active Marielle Jayden NECON 0.5/0.75/1-35 MG-MCG TABS DIRECTED NORETHIN- ETH ESTRAD TRIPHASIC 28235889224 Active Brianna Hughes EFFEXOR XR 75 MG [id number] 1 PO DAILY VENLAFAXINE HCL 14150355673 Active Marielle Lylestis Vital Signs Date Name [...] mm/h Encounters Code Encounter Date Provider Facility CPT-20624 Ofc Vst, Est Level III 16:48:14 CDT Manda Pearson DO, FACJak CPT-03138 Ofc Vst, Est Level IV 15:12:50 CDT Manda Pearson [facility] CPT-18042 Ofc Vst, New Level IV 14:55:47 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
--- OUTSIDE RECORDS SUMMARY | 2018-04-29 09:02 | XMS REPORT | Clinical Summary ---
Author Author User, [employer] Organization Manda Pearson DO, FACP Address Unknown [...] Generic Name [facility] Status Provider Patient Instruction VITAMIN B-12 1000 MCG TABS 1 PO daily CYANOCOBALAMIN 39860739162 Active Mandakorin [place] Lili NEURONTIN 100 MG CAP 1 PO TID GABAPENTIN 48365559309 Active Manda Mathur Lili FEROSUL 220 (44 FE) MG/5ML ELIX TAKE 5ML BY MOUTH DAILY FERROUS SULFATE 76183766034 Active Marielle Carpenter [facility] MINERAL OIL OIL 1 TSP DAILY FOR CONSTIPATION MINERAL OIL 31981352673 Active Mandakorin [place] Lili DIPHENHYDRAMINE HCL 50 MG CAPS ONE PO AT HS FOR INSOMNIA DIPHENHYDRAMINE HCL 23954077012 Active Mandakorin Pearson PROBIOTIC CAPS DAILY FOR CONSTIPATION PROBIOTIC PRODUCT 75909421743 Active Manda Pearson IBUPROFEN 200 MG TAB 1-3 TABS PO Q 8RS PRN IBUPROFEN 10103558401 Active Manda Pearson LORTAB 7.5-325 MG TABS 1-2 PO Q 4-6 HRS PRN PAIN HYDROCODONE- ACETAMINOPHEN 47622659841 Active Marielle Carpenter CYCLOBENZAPRINE HCL 10 MG TABS 1 PO Q 8HRS PRN NECK PAIN CYCLOBENZAPRINE HCL 03589804727 Active Marielle Carpenter ACYCLOVIR 200 MG CAPS 1-5 TABS DAILY PRN PERPES ACYCLOVIR 88577256673 Active Marielle Carpenter FLUTICASONE PROPIONATE 50 MCG/ACT SUSP NEEDED FOR ALLERGIES FLUTICASONE PROPIONATE 37214076417 Active Delores Mobile TRAZODONE HCL 150 MG TABS 1 PO AT HS FOR SLEEP TRAZODONE HCL 62915329681 Active Marielle Carpenter OMEPRAZOLE 20 MG TBEC ONE PO DAILY OMEPRAZOLE 17098277338 Active Marielle Carpenter NECON 7/7/7 0.5/0.75/1-35 MG-MCG TABS DIRECTED NORETHIN- ETH ESTRAD TRIPHASIC 84823227435 Active Brianna Main EFFEXOR XR 75 MG [id number] 1 PO DAILY VENLAFAXINE HCL 04450544740 Active Marielle Carpenter Vital Signs Date Name [...] mm/h Encounters Code Encounter Date Provider Facility CPT-00649 Ofc Vst, Est Level IV 15:12:50 CDT Manda [facility] CPT-56362 Ofc Vst, New Level IV 14:55:47 SURFACE TO [employer] OFFICER Manda Pearson DO, FACP
--- OUTSIDE RECORDS SUMMARY | 2018-04-29 09:02 | XMS REPORT | Clinical Summary ---
Author Author User, [employer] Organization Manda Pearson DO, FACP Address Unknown [...] Instructions Start Date Stop Date Generic Name [place] Status Provider Patient Instruction NECON 0.5/0.75/1-35 MG-MCG TABS DIRECTED NORETHIN-ETH ESTRAD TRIPHASIC 70452718890 No Longer Active Manda Pearson NEURONTIN 600 MG TABS 1 PO TID GABAPENTIN 98715663159 Active Manda Pearson MEDROL (CASIMIRO) 4 MG TABS As directed METHYLPREDNISOLONE 49502337047 No Longer Active Manda Pearson VITAMIN B-12 1000 MCG TABS 1 PO daily CYANOCOBALAMIN 23600136831 Active Manda Pearson FEROSUL 220 (44 FE) MG/5ML ELIX TAKE 5ML BY MOUTH DAILY FERROUS SULFATE 23287771262 Active Marielle Carpenter [facility] MINERAL OIL OIL 1 TSP DAILY FOR CONSTIPATION MINERAL OIL 73201085762 Active Manda Pearson DIPHENHYDRAMINE HCL 50 MG CAPS ONE PO AT HS FOR INSOMNIA DIPHENHYDRAMINE HCL 53546518031 Active Manda Pearson PROBIOTIC CAPS DAILY FOR CONSTIPATION PROBIOTIC PRODUCT 48562236590 Active Manda Pearson IBUPROFEN 200 MG TAB 1-3 TABS PO Q 8RS PRN IBUPROFEN 89810887990 Active Manda Pearson LORTAB 7.5-325 MG TABS 1-2 PO Q 4-6 HRS PRN PAIN HYDROCODONE- ACETAMINOPHEN 88169408713 Active Manda Pearson CYCLOBENZAPRINE HCL 10 MG TABS 1 PO Q 8HRS PRN NECK PAIN CYCLOBENZAPRINE HCL 62403653799 Active Marielle Carpenter ACYCLOVIR 200 MG CAPS 1-5 TABS DAILY PRN PERPES ACYCLOVIR 73310817716 Active Marielle Carpenter FLUTICASONE PROPIONATE 50 MCG/ACT SUSP NEEDED FOR ALLERGIES FLUTICASONE PROPIONATE 39310845714 Active Marielle Carpenter TRAZODONE HCL 150 MG TABS 1 PO AT HS FOR SLEEP TRAZODONE HCL 54841648513 Active Marielle Carpenter OMEPRAZOLE 20 MG TBEC ONE PO DAILY OMEPRAZOLE 19447397918 Active Marielle Carpenter EFFEXOR XR 75 MG [id number] 1 PO DAILY VENLAFAXINE HCL 85158106939 Active Marielle Carpenter Vital Signs Date Name Value Unit Range Description blood pressure, diastolic - 8462-4 80 mm[Hg] BP headley blood pressure, systolic - 8480-6 128 mm[Hg] BP sys pulse rate E&M - 8867-4 70 /min Heart rate respiratory rate E&M - 9279-1 14 /min Resp rate temperature E&M 98.6 [degF] Body temperature weight E&M - 3141-9 180 [lb_av] Weight Measured blood pressure, diastolic - 8462-4 76 mm[Hg] [...] mm/h Encounters Code Encounter Date Provider Facility CPT-50292 Ofc Vst, Est Level IV 16:50:03 CDT Manda Pearson DO, FACP CPT-19780 Ofc Vst, Est Level III 16:48:14 CDT Manda Pearson DO, FACP CPT-51470 Ofc Vst, Est Level IV 15:12:50 CDT Manda Pearson [place] [facility] CPT-71889 Ofc Vst, New Level IV 14:55:47 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
--- OUTSIDE RECORDS SUMMARY | 2018-04-29 09:03 | XMS REPORT | Continuity of Care Document ---
Author Author [facility] Organization [facility] Address Unknown Phone Unavailable Allergies Active Description Code Type Severity Reaction Onset Reported/Identified Relationship to Patient Clinical Status Yes Penicillins [id number] Drug Allergy Moderate rash, dyspnea 04/27/2018 Medications There is no data. Problems Date Dx Coded Attending Type Code Diagnosis Diagnosed By 11/22/2012 JONATHAN GARCIA Ot 465.9 11/22/2012 JONATHAN GARCIA Ot 786.2 11/22/2012 JONATHAN GARCIA Ot 847.9 11/22/2012 JONATHAN GARCIA Ot E000.8 11/22/2012 JONATHAN GARCIA Ot E928.9 08/02/2014 MILLICENT MARKS DO Ot V76.12 12/12/2014 DWAYNE MARKS DOI Ot V76.12 12/20/2014 KYLAH WARNER MD, Ot D25.0 SUBMUCOUS LEIOMYOMA OF UTERUS 12/20/2014 KYLAH WARNER MD Ot D25.1 INTRAMURAL LEIOMYOMA OF UTERUS 12/20/2014 KYLAH WARNER MD Ot D25.2 SUBSEROSAL LEIOMYOMA OF UTERUS 12/20/2014 KYLAH WARNER MD, Ot N73.6 FEMALE PELVIC PERITONEAL ADHESIONS (POST 12/20/2014 KYLAH WARNER MD, Ot N83.20 UNSPECIFIED OVARIAN CYSTS 12/20/2014 ESPINOZA GREENE DO Ot R33.9 RETENTION OF URINE, UNSPECIFIED 12/20/2014 ESPINOZA GREENE DO Ot Z90.710 ACQUIRED ABSENCE OF BOTH CERVIX AND UTER 12/29/2014 KYLAH WARNER MD, Ot D25.9 12/29/2014 KYLAH WARNER MD, Ot D64.9 12/29/2014 KYLAH WARNER MD, Ot N92.0 12/29/2014 KYLAH WARNER MD Ot Z01.812 12/29/2014 KYLAH WARNER MD, Ot Z11.2 10/31/2015 KYLAH WARNER MD, Ot D25.9 LEIOMYOMA OF UTERUS, UNSPECIFIED 10/31/2015 KYLAH WARNER MD, Ot D64.9 ANEMIA, UNSPECIFIED 10/31/2015 KYLAH WARNER MD, Ot N92.0 EXCESSIVE AND FREQUENT MENSTRUATION WITH 10/31/2015 KYLAH WARNER MD Ot Z01.812 ENCOUNTER FOR PREPROCEDURAL LABORATORY E 10/31/2015 KYLAH WARNER MD, Ot Z11.2 ENCOUNTER FOR SCREENING FOR OTHER BACTER 11/01/2015 MILLICENT MARKS DO Ot Z12.31 ENCNTR SCREEN MAMMOGRAM FOR MALIGNANT NE 11/01/2015 MILLICENT MARKS DO Ot Z12.31 ENCNTR SCREEN MAMMOGRAM FOR MALIGNANT NE 11/08/2015 MILLICENT MARKS DO Ot Z12.31 ENCNTR SCREEN MAMMOGRAM FOR MALIGNANT NE 12/04/2015 KYLAH WARNER MD, Ot D25.9 LEIOMYOMA OF UTERUS, UNSPECIFIED 12/04/2015 KYLAH WARNER MD, Ot D64.9 ANEMIA, UNSPECIFIED 12/04/2015 KYLAH WARNER MD Ot N92.0 EXCESSIVE AND FREQUENT MENSTRUATION WITH 12/04/2015 KYLAH WARNER MD Ot Z01.812 ENCOUNTER FOR PREPROCEDURAL LABORATORY E 12/04/2015 KYLAH WARNER MD Ot Z11.2 ENCOUNTER FOR SCREENING FOR OTHER BACTER 12/04/2015 MILLICENT MARKS DO Ot Z12.31 ENCNTR SCREEN MAMMOGRAM FOR MALIGNANT NE 12/04/2015 MONAE PASTRANA MD Ot M51.16 INTERVERTEBRAL DISC DISORDERS W RADICULO 12/04/2015 MONAE PASTRANA MD Ot Z79.899 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 (CURRENT) DRUG THERAPY 12/29/2015 MONAE PASTRANA MD, Ot M51.16 INTERVERTEBRAL DISC DISORDERS W RADICULO 12/29/2015 MONAE PASTRANA MD Ot Z79.899 OTHER MCC (CURRENT) DRUG THERAPY 12/31/2015 MONAE PASTRANA MD, Ot M51.16 INTERVERTEBRAL DISC DISORDERS W RADICULO 12/31/2015 MONAE PASTRANA MD Ot Z79.899 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 PLATE 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 (CURRENT) DRUG THERAPY 01/05/2016 MONAE PASTRANA MD Ot M48.02 SPINAL STENOSIS, CERVICAL REGION 01/05/2016 MONAE PASTRANA MD Ot Z98.1 ARTHRODESIS STATUS 01/05/2016 MONAE PASTRANA MD Ot M48.02 SPINAL STENOSIS, CERVICAL REGION 01/05/2016 MONAE PASTRANA MD Ot Z98.1 ARTHRODESIS STATUS 01/31/2016 MONAE PASTRANA MD, Ot M48.02 SPINAL STENOSIS, CERVICAL REGION 01/31/2016 MONAE PASTRANA MD Ot Z98.1 ARTHRODESIS STATUS 02/02/2016 MONAE PASTRANA MD, Ot M51.16 INTERVERTEBRAL DISC DISORDERS W RADICULO 04/01/2016 KYLAH WARNER MD Ot D25.9 LEIOMYOMA OF UTERUS, UNSPECIFIED 04/01/2016 KYLAH WARNER MD Ot D64.9 ANEMIA, UNSPECIFIED 04/01/2016 KYLAH WARNER MD Ot N92.0 EXCESSIVE AND FREQUENT MENSTRUATION WITH 04/01/2016 KYLAH WARNER MD Ot Z01.812 ENCOUNTER FOR PREPROCEDURAL LABORATORY E 04/01/2016 KYLAH WARNER MD Ot Z11.2 ENCOUNTER FOR SCREENING FOR OTHER BACTER 04/01/2016 MILLICENT MARKS DO Ot Z12.31 ENCNTR SCREEN MAMMOGRAM FOR MALIGNANT NE 04/01/2016 MONAE PASTRANA MD Ot M48.02 SPINAL STENOSIS, CERVICAL REGION 04/01/2016 MONAE PASTRANA MD, Ot Z98.1 ARTHRODESIS STATUS 04/01/2016 MONAE PASTRANA MD Ot M50.13 CERVICAL DISC DISORDER W RADICULOPATHY, 04/01/2016 MONAE PASTRANA MD, Ot M51.16 INTERVERTEBRAL DISC DISORDERS W RADICULO 04/01/2016 MONAE PASTRANA MD, Ot Z79.899 OTHER MCC (CURRENT) DRUG THERAPY 04/02/2016 MARKSSARA MORENO MILLICENT Ot R10.84 GENERALIZED ABDOMINAL PAIN 04/11/2016 MARKSSARA MORENO MILLICENT Ot R10.84 GENERALIZED ABDOMINAL PAIN 06/17/2016 MONAE PASTRANA MD Ot M50.13 CERVICAL DISC DISORDER W RADICULOPATHY, 06/17/2016 MONAE PASTRANA MD Ot M51.16 INTERVERTEBRAL DISC DISORDERS W RADICULO 06/17/2016 MONAE PASTRANA MD Ot Z79.899 OTHER MCC (CURRENT) DRUG THERAPY 06/20/2016 MONAE PASTRANA MD Ot M50.13 CERVICAL DISC DISORDER W RADICULOPATHY, 06/20/2016 MONAE PASTRANA MD Ot M51.16 INTERVERTEBRAL DISC DISORDERS W RADICULO 06/20/2016 MONAE PASTRANA MD Ot Z79.899 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 PLATE 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 (CURRENT) DRUG THERAPY 11/24/2016 MILLICENT MARKS DO Ot E04.2 NONTOXIC MULTINODULAR GOITER 11/27/2016 MILLICENT MARKS DO Ot E04.2 NONTOXIC MULTINODULAR GOITER 01/10/2017 MILLICENT MARKS DO Ot Z12.31 ENCNTR SCREEN MAMMOGRAM FOR MALIGNANT NE 01/30/2017 KYLAH WARNER MD Ot R10.11 RIGHT UPPER QUADRANT PAIN 07/09/2017 KYLAH WARNER MD Ot D25.9 LEIOMYOMA OF UTERUS, UNSPECIFIED 07/09/2017 KYLAH WARNER MD Ot D64.9 ANEMIA, UNSPECIFIED 07/09/2017 KYLAH WARNER MD Ot N92.0 EXCESSIVE AND FREQUENT MENSTRUATION WITH 07/09/2017 KYLAH WARNER MD Ot Z01.812 ENCOUNTER FOR PREPROCEDURAL LABORATORY E 07/09/2017 KYLAH WARNER MD Ot Z11.2 ENCOUNTER FOR SCREENING FOR OTHER BACTER 07/09/2017 MILLICENT MARKS DO Ot Z12.31 ENCNTR SCREEN MAMMOGRAM FOR MALIGNANT NE 07/09/2017 MONAE PASTRANA MD Ot M48.02 SPINAL STENOSIS, CERVICAL REGION 07/09/2017 MONAE PASTRANA MD Ot Z98.1 ARTHRODESIS STATUS 07/09/2017 MILLICENT MARKS DO Ot R10.84 GENERALIZED ABDOMINAL PAIN 07/09/2017 MILLICENT MARKS DO Ot Z12.31 ENCNTR SCREEN MAMMOGRAM FOR MALIGNANT NE 07/09/2017 MILLICENT MARKS DO Ot E04.2 NONTOXIC MULTINODULAR GOITER 07/09/2017 TIMMY RAYO, KYLAH Maddox Ot R10.11 RIGHT UPPER QUADRANT PAIN 07/11/2017 ERNST RAYO, DARRIUS Benedict Ot E04.2 NONTOXIC MULTINODULAR GOITER 07/21/2017 DARRIUS DUKES MD Ot E04.2 NONTOXIC MULTINODULAR GOITER 01/01/2018 MILLICENT MARKS DO Ot Z12.31 ENCNTR SCREEN MAMMOGRAM FOR MALIGNANT NE 04/23/2018 KINGSTON MAYORGA MD Ot Z01.818 ENCOUNTER FOR OTHER PREPROCEDURAL EXAMIN 04/27/2018 KINGSTON MAYORGA MD, Ot Z01.818 ENCOUNTER FOR OTHER PREPROCEDURAL EXAMIN 04/27/2018 KINGSTON MAYORGA MD, Ot Z01.818 ENCOUNTER FOR OTHER PREPROCEDURAL EXAMIN Procedures There is no data. Results There is no data. Encounters ACCT No. Visit Date/Time Discharge Status Pt. Type Provider Facility Loc./Unit Complaint [id number] 04/27/2018 14:33:00 04/27/2018 14:39:00 DIS Outpatient KINGSTON MAYORGA MD [facility] PREOP SCREENING/FAMILY HX COLON CA [id number] 12/31/2017 14:52:00 12/31/2017 23:59:59 CLS Outpatient MILLICENT MARKS DO [facility] RAD SCREENING Z12.31 [id number] 07/10/2017 10:57:00 07/10/2017 23:59:59 CLS Outpatient DARRIUS DUKES MD [facility] RAD MULTI NODULAR GOITER [id number] 01/16/2017 09:48:00 01/16/2017 23:59:59 CLS Outpatient TIMMY RAYO, KYLAH Maddox [facility] CARD RUQ PAIN [id number] 12/30/2016 10:52:00 12/30/2016 23:59:59 CLS Outpatient MILLICENT MARKS DO [facility] RAD SCREENING [id number] 11/18/2016 09:49:00 11/18/2016 23:59:59 CLS Outpatient MILLICENT MARKS DO [facility] RAD THYROID MASS [id number] 06/17/2016 11:47:00 06/17/2016 12:41:00 DIS Outpatient MONAE PASTRANA MD [facility] CARD M50.13 [id number] 04/01/2016 11:32:00 04/01/2016 12:39:00 DIS Outpatient MONAE PASTRANA MD [facility] CARD DISC DISORDER [id number] 03/29/2016 09:23:00 03/29/2016 23:59:59 CLS Outpatient MILLICENT MARKS DO [facility] RAD GENERALIZED ABDOMINAL PAIN [id number] 02/02/2016 13:30:00 02/02/2016 14:20:00 DIS Outpatient MONAE PASTRANA MD [facility] CARD M51.16 [id number] 01/04/2016 09:42:00 01/04/2016 23:59:59 CLS Outpatient MONAE PASTRANA MD [facility] RAD CERVICALGIA [id number] 12/04/2015 12:59:00 12/04/2015 14:00:00 DIS Outpatient MONAE PASTRANA MD [facility] CARD DISC DISORDER [id number] 10/31/2015 13:43:00 10/31/2015 23:59:59 CLS Outpatient MILLICENT MARKS DO [facility] RAD ENCOUNTER FOR GENERAL ADULT MEDICAL EXAMINATION [id number] 12/20/2014 16:56:00 12/20/2014 20:30:00 DIS Emergency JC ESPINOZA MORENO [facility] ER UNABLE TO URINATE AFTER SURGERY [id number] 12/19/2014 06:00:00 12/20/2014 12:15:00 DIS Outpatient KYLAH WARNER MD [facility] SD DUB, MENORRHAGIA, FIBROIDS [id number] 12/13/2014 11:36:00 12/13/2014 23:59:59 CLS Outpatient KYLAH WARNER MD [facility] PREOP DUB, MENORRHAGIA , FIBROIDS [id number] 06/23/2014 13:21:00 06/23/2014 23:59:59 CLS Outpatient MILLICENT MARKS DO [facility] RAD [id number] 11/22/2012 14:22:00 11/22/2012 15:26:00 DIS Emergency TONYA ANN, JONATHAN Barriga [facility] ER [id number] 04/29/2018 09:30:00 PEN Preadmit KINGSTON MAYORGA MD [facility] ENDO SCREENING
[2018-04-29] MEDS ORDERED: NS IV 500 ML 500 ML ONE (09:06)
[2018-04-29] MEDS ORDERED: NS IV 500 ML 500 ML IV PRN (09:09)
[2018-04-29 09:10] VITALS: BP 130/74
[2018-04-29] MEDS ORDERED: fentaNYL INJECTION 100 MCG/2 ML AMP IVP ONE (09:15)
[2018-04-29] MEDS ORDERED: MIDAZOLAM 2 MG/2 ML (VERSED) VIAL IVP ONE (09:15)
[2018-04-29] MEDS ORDERED: LIDOCAINE JELLY 2% 6 ML SYRINGE MM PRN (09:15)
--- NOTE | 2018-04-29 11:01 | Conscious Sedation/ASA ---
Conscious Sedation Pre-Proced Time 10:30 ASA Score 2 For ASA 3 and 4: Consider anesthesia and medical clearance. Also, for patients with a history of failed moderate sedation consider anesthesia. Airway Lungs Heart ASA score ASA 1: a normal healthy patient ASA 2: a patient with a mild systemic disease (mid diabetes, controlled hypertension, obesity ASA 3: a patient with a severe systemic disease that limits activity (angina , COPD, prior Myocardial infarction) ASA 4: a patient with an incapacitating disease that is a constant threat to life (CHF, renal failure) ASA 5: a moribund patient not expected to survive 24 hrs. (ruptured aneurysm) ASA 6: a declared brain- patient whose organs are being harvested. For emergent operations, add the letter E after the classification Mallampati Classification Grade 2 Sedation Plan Analgesia, Amnesia, Plan communicated to team members, Discussed options with patient/fam, Discussed risks with patient/fam The patient is an appropriate candidate to undergo the planned procedure, sedation, and anesthesia. The patient immediately re-assessed prior to indication. KINGSTON MAYORGA MD Apr 29, 2018 11:01
--- NOTE | 2018-04-29 11:02 | Progress Note-Pre Operative ---
Pre-Operative Progress Note H&P Reviewed The H&P was reviewed, patient examined and no changes noted. Date Seen by Provider: Apr 29, 2018 Time Seen by Provider: 10:30 Date H&P Reviewed: Apr 29, 2018 Time H&P Reviewed: 10:30 Pre-Operative Diagnosis: family hx colon ca KINGSTON MAYORGA MD Apr 29, 2018 11:02
--- NOTE | 2018-04-29 11:03 | Discharge Inst-Surgical ---
D/C Lap Instructions-MUKESH Follow Up 5 years Activity as tolerated High Fiber Diet 25g or more per day Avoid Alcohol, Caffeine, Spicy Lubeck and Acid foods. Drink 64 fluid oz or more of fluids per day. Symptoms to Report: Fever over 101 degree F, Nausea/Vomiting If any problems/questions: Contact your physician or go to Emergency Room KINGSTON MAYORGA MD Apr 29, 2018 11:03
[2018-04-29] MEDS ORDERED: LIDOCAINE JELLY 2% 6 ML SYRINGE ONE (11:04)
[2018-04-29] MEDS ORDERED: MIDAZOLAM 2 MG/2 ML (VERSED) VIAL ONE ×5 (11:04→11:55)
[2018-04-29] MEDS ORDERED: fentaNYL INJECTION 100 MCG/2 ML AMP ONE ×2 (11:04→11:52)
[2018-04-29] MEDS ORDERED: HYDROcodone/APAP 5 MG/325 MG (LORTAB) TAB PO PRN (11:15)
[2018-04-29] MEDS ORDERED: ONDANSETRON 4 MG/2 ML (SDV) Z0FRAN IV PRN (11:15)
[2018-04-29] MEDS ORDERED: morphine INJ 10 MG/ML 1ML (SYR OR VIAL) IV PRN (11:15)
[2018-04-29] MEDS ORDERED: ACETAMINOPHEN 325 MG TABLET PO PRN (11:15)
[2018-04-29 12:20] VITALS: BP 119/58
--- NOTE | 2018-04-29 12:26 | Progress Note-Post Operative ---
Post-Operative Progess Note Surgeon (s)/Leather Grainer (s) Surgeon KINGSTON MAYORGA MD Leather Grainer: none Pre-Operative Diagnosis family hx colon ca Post-Operative Diagnosis mild chronic stage 2 ext and int hemorrhoids. Procedure & Operative Findings Date of Procedure 04/29/18 Procedure Performed/Findings Colonoscopy. Anesthesia Type CS Estimated Blood Loss Estimated blood loss (mL): minimal Specimens/Packing Specimens Removed none KINGSTON MAYORGA MD Apr 29, 2018 12:26
[2018-04-29 12:50] VITALS: BP 114/59
[2018-04-29 12:55] VITALS: BP 114/59
--- NOTE | 2018-04-29 18:23 | OPERATIVE REPORT ---
DATE OF SERVICE: 04/29/2018 ATTENDING PRIMARY CARE PHYSICIAN: Dr. Pearson. PREOPERATIVE DIAGNOSIS: Screening colonoscopy with family history of colon cancer. POSTOPERATIVE DIAGNOSIS: Chronic stage II external and internal hemorrhoids. Remainder of the rectum and colon were normal. PROCEDURE: Colonoscopy. SURGEON: Kingston Meraz MD ANESTHESIA: Conscious sedation. ESTIMATED BLOOD LOSS: Minimal. FINDINGS: Mild to moderate chronic stage II external and internal hemorrhoids, not actively edematous or inflamed and no bleeding. The range of the rectum and colon were normal. There were no polyps or any neoplasms identified throughout the colon or rectum. DISPOSITION: The patient tolerated the procedure well. INDICATION: The patient is a 63-year-old female in need of a followup screening colonoscopy. Her last colonoscopy was approximately 11 years ago. She states for the most part she is doing well, does not report any major issues with diarrhea nor constipation as well as no red blood per rectum nor any dark tarry stools. She does have a family history of colon cancer with her mother as well as maternal grandmother having the disease. She states that she also has a paternal grandmother diagnosed with breast cancer at around age 86. DESCRIPTION OF PROCEDURE: The patient was brought to the endoscopy suite, laid in the left lateral decubitus position. After adequate IV pain and sedative medications and conscious sedation anesthesia, a digital rectal examination was performed. Mild to moderate chronic stage II external and internal hemorrhoids were identified with a slight amount of edema most likely due to the colonic preparation. There was no bleeding identified. Normal sphincter tone was felt and there were no palpable masses. The endoscope was then intubated to the anus and rectum was gently insufflated. The endoscope was then advanced through the valves of Ribera of the rectum with no polyps or any neoplasms identified. We then proceeded through the sigmoid colon where no diverticulosis identified. The endoscope was then advanced to the remainder of the descending, transverse and ascending colon to the cecum. These segments were normal. There were no polyps or any neoplasms identified throughout the colon or rectum. The endoscope was then slowly withdrawn while taking a second look and suctioning of residual air with no additional findings. The patient tolerated the procedure well. We will recommend continued conservative management with a high fiber diet with at least 25 grams of fiber per day as well as significant amounts of water to promote soft stools on a daily basis. Due to her first degree of family history of colon cancer, we will recommend followup colonoscopy in approximately 5 years. Job ID: [id number] DocumentID: [id number] Dictated Date: 04/29/2018 12:17:31 Medical Doctor Date: 04/29/2018 18:22:55 Dictated By: KINGSTON MERAZ MD
== END 2018-04-29 12:55 | disposition home or self-care (01) ==
LOC: ENDO 08:58
PROVIDERS: ATTEND Surgery
DX: Z12.11 Encounter for screening for malignant neoplasm of colon (principal); K64.1 Second degree hemorrhoids; Z80.0 Family history of malignant neoplasm of digestive organs; Z80.3 Family history of malignant neoplasm of breast; Z80.1 Family history of malignant neoplasm of trachea, bronchus and lung; K21.9 Gastro-esophageal reflux disease without esophagitis; G47.00 Insomnia, unspecified; G62.9 Polyneuropathy, unspecified; F32.9 Major depressive disorder, single episode, unspecified; B00.9 Herpesviral infection, unspecified; Z88.0 Allergy status to penicillin; Z79.899 Other long term (current) drug therapy

== ENCOUNTER → 2018-07-31 | Outpatient (CLI) | payer BC ==
--- NOTE | 2018-07-31 19:57 | Diagnostic Imaging Report ---
INDICATION: Thyroid nodule. TECHNIQUE: Thyroid sonography performed in the routine fashion and compared to 07/10/2017. FINDINGS: The right thyroid lobe measures 4.6 x 1.8 x 1.3 cm. The left thyroid lobe measures 4.5 x 1.5 x 1.2 cm. On the right side, there are multiple hypoechoic lesions, including a cystic lesion measuring about 8 x 6 mm in the mid portion of the gland. There are multiple hypoechoic solid-appearing lesions in the inferior portion of the gland, all measuring below 5 mm in size. There is a hypoechoic lesion in the thyroid isthmus measuring 8 x 4 x 6 mm. There are no left-sided thyroid lesions. Compared to the prior study of 07/10/2017, none of these findings appear significantly changed. IMPRESSION: Multiple thyroid lesions are again noted which are below a centimeter in size and have not appreciably changed from 07/10/2017. There is no significant new finding. Dictated by: Dictated on workstation # [id number]
== END ==
LOC: RAD 14:02
PROVIDERS: ATTEND Otolaryngology Otolaryngology/Facial Plastic Surgery
DX: E04.2 Nontoxic multinodular goiter (principal)
CPT/HCPCS: 76536

== ENCOUNTER → 2019-03-05 | Outpatient (CLI) | payer MEDICARE, OTHER ==
[~2019-03-05] MED LIST changes: +MINE473O17 PO; -MINE473O3 PO; +OMEP-280 PO
--- NOTE | 2019-03-05 18:01 | Diagnostic Imaging Report ---
INDICATION: Routine screening. COMPARISON: Prior mammogram from 12/31/2017 and 12/30/2016. EXAMINATION: 2D and 3D bilateral screening mammography was performed with CAD. The current study was also evaluated with a Computer Aided Detection (CAD) system. FINDINGS: Both breasts are heterogeneously dense, limiting the sensitivity of mammography. Circumscribed nodule in the upper-outer right breast appears stable and most consistent with intraparenchymal lymph node. No spiculated mass or malignant appearing microcalcifications are seen. Axillae are unremarkable. IMPRESSION: No mammographic features suspicious for malignancy are identified. ACR BI-RADS Category 2: Benign findings. Result letter will be mailed to the patient. Note: At least 10% of breast cancer is not imaged by mammography. Dictated by: Dictated on workstation # [id number]
== END ==
LOC: RAD 14:40
PROVIDERS: ATTEND Internal Medicine
DX: Z12.31 Encounter for screening mammogram for malignant neoplasm of breast (principal)
CPT/HCPCS: 77067

== ENCOUNTER → 2019-11-15 | Outpatient (CLI) | payer MEDICARE, OTHER ==
[~2019-11-15] MED LIST changes: -OMEP-280 PO; +OMEP20CA18 PO; -OXYC-465 PO; +OXYC-556 PO
== END ==
LOC: LABNPT 06:00
PROVIDERS: ATTEND Orthopaedic Surgery
DX: Z01.812 Encounter for preprocedural laboratory examination (principal); Z20.828 Contact with and (suspected) exposure to other viral communicable diseases
CPT/HCPCS: 87635

== ENCOUNTER → 2020-04-05 | Outpatient (CLI) | payer MEDICARE, OTHER ==
--- NOTE | 2020-04-05 16:02 | Diagnostic Imaging Report ---
PROCEDURE: US Thyroid. TECHNIQUE: Multiple real-time grayscale images were obtained of the thyroid in various projections. INDICATION: Multinodular goiter. COMPARISON: July 31, 2018 and July 10, 2017. FINDINGS: The right lobe of thyroid gland measures 4.5 x 1.6 x 1.6 cm. Several subcentimeter spongiform nodules and cystic nodules are noted within the right thyroid lobe, largest measuring up to 0.8 cm. These have not significantly changed compared to prior imaging from 2018. No new right thyroid nodules. The left lobe of thyroid gland measures 3.9 x 1.4 x 1.1 cm. It maintains a homogeneous echotexture without discrete nodule. Subcentimeter isthmic hypoechoic nodule is again identified and stable. IMPRESSION: Stable subcentimeter right thyroid lobe and isthmic nodules as described above, not significantly changed since 2018 without new suspicious nodule. Dictated by: Dictated on workstation # [id number]
== END ==
LOC: RAD 12:00
PROVIDERS: ATTEND Otolaryngology Otolaryngology/Facial Plastic Surgery
DX: E04.2 Nontoxic multinodular goiter (principal)
CPT/HCPCS: 76536

== ENCOUNTER → 2020-05-02 | Outpatient (CLI) | payer MEDICARE, OTHER ==
--- NOTE | 2020-05-02 14:15 | Diagnostic Imaging Report ---
INDICATION: Routine screening. COMPARISON: 03/05/2019 and 12/31/2017. TECHNIQUE: 2D and 3D bilateral screening mammography was performed with CAD. FINDINGS: Both breasts are heterogeneously dense, limiting the sensitivity of mammography. An intraparenchymal lymph node in the upper outer right breast is stable. A nodular density in the retroareolar left breast appears fairly stable. No new mass or malignant appearing microcalcifications are seen. The axillae are unremarkable. IMPRESSION: No mammographic features suspicious for malignancy are identified. ACR BI-RADS Category 2: Benign findings. Result letter will be mailed to the patient. Note: At least 10% of breast cancer is not imaged by mammography. Dictated by: Dictated on workstation # [id number]
== END ==
LOC: RAD 12:30
PROVIDERS: ATTEND Internal Medicine
DX: Z12.31 Encounter for screening mammogram for malignant neoplasm of breast (principal)
CPT/HCPCS: 77063; 77067

== ENCOUNTER → 2021-07-31 | Outpatient (CLI) | payer MEDICARE, OTHER ==
[~2021-07-31] MED LIST changes: +ACYC-108 PO; -ACYC200C PO; +CYCL10TA25 PO; -DIPH50CA PO; +DIPH50CA33 PO; -MINE473O17 PO; -OXYC-464 PO; +OXYC1TAB15 PO; +[UNRECOGNIZED DRUG - CODE] PO
--- NOTE | 2021-07-31 18:22 | Diagnostic Imaging Report ---
INDICATION: Routine screening. COMPARISON is made with prior mammograms from 05/02/2020 and 03/05/2019. 2-D and 3-D bilateral screening mammography was performed with CAD. Both breasts are heterogeneously dense, limiting the sensitivity of mammography. Intraparenchymal lymph node in the outer right breast is again noted and appears stable. Retroareolar circumscribed density on the left appears to be smaller, likely diminution of a cyst. No new mass or malignant-appearing microcalcifications are seen. Axillae are unremarkable. IMPRESSION: BI-RADS Category 2 No mammographic features suspicious for malignancy are identified. ACR BI-RADS Category 2: Benign findings. Result letter will be mailed to the patient. Note: At least 10% of breast cancer is not imaged by mammography. Dictated by: Dictated on workstation # [id number]
== END ==
LOC: RAD 13:45
PROVIDERS: ATTEND Internal Medicine
DX: Z12.31 Encounter for screening mammogram for malignant neoplasm of breast (principal)
CPT/HCPCS: 77063; 77067

== ENCOUNTER 2021-08-31 13:44 | Outpatient (RCR) | payer MEDICARE, OTHER ==
[2021-08-22 14:20] VITALS: BP 121/65
[2021-08-22] MEDS: IRON SUCROSE 200 MG/10 ML (VENOFER) VIAL IV SCH (14:32)
[2021-08-24 11:30] VITALS: BP 136/65
[2021-08-24] MEDS: IRON SUCROSE 200 MG/10 ML (VENOFER) VIAL IV SCH (11:55)
[2021-08-27] MEDS: IRON SUCROSE 200 MG/10 ML (VENOFER) VIAL IV SCH (13:57)
[2021-08-27 14:36] VITALS: BP 141/76
[2021-08-29] MEDS: IRON SUCROSE 200 MG/10 ML (VENOFER) VIAL IV SCH (13:52)
[2021-08-29 14:25] VITALS: BP 129/79
[~2021-08-31] VITALS: Ht 162 cm; Wt 85.0 kg
[2021-08-31 13:52] VITALS: BP 132/78
[2021-08-31] MEDS ORDERED: IRON SUCROSE 200 MG/10 ML (VENOFER) VIAL IV ONE (14:00)
== END 2021-08-31 14:32 | disposition home or self-care (01) ==
LOC: SDC 13:44
PROVIDERS: ATTEND Internal Medicine
DX: E61.1 Iron deficiency (principal)
CPT/HCPCS: 96365

== ENCOUNTER 2022-05-08 11:56 | Inpatient (IN) | payer MEDICARE, OTHER ==
[~2022-05-08] VITALS: Ht 163 cm; Wt 86.0 kg
[~2022-05-08 11:56] MED LIST changes: -FLUT9.9S NS; +FLUT9.9S NSEACH
--- NOTE | 2022-05-08 12:04 | ED Chest Pain ---
General Chief Complaint: Chest Pain Stated Complaint: CHEST PAINS | History of Present Illness Date Seen by Provider: May 08, 2022 Time Seen by Provider: 12:03 Initial Comments 67-year-old female presents with chest pain. She reports that, chest pressure radiates into her bilateral neck gets worse with deep breath or palpation. Started at 4:00 this morning. She denies any fevers, chills, nausea or vomiting. Some mild shortness of breath. Allergies and Home Medications Allergies Coded Allergies: Penicillins (Unverified Adverse Reaction, Intermediate, rash, dyspnea, 04/27/18) Patient Home Medication List Home Medication List Reviewed: Yes Biotin (Biotin) 10,000 Mcg Tab.rapdis, 10,000 MCG PO DAILY, (Reported) Entered as Reported by: CHELY BUCHANAN on 04/27/18 142 Cyclobenzaprine HCl (Cyclobenzaprine HCl) 10 Mg Tablet, 10 MG PO PRN, (Reported) Entered as Reported by: CHELY BUCHANAN on 04/27/18 142 Duloxetine HCl (Cymbalta) 30 Mg Capsule.dr, 30 MG PO BID, (Reported) Entered as Reported by: CHELY BUCHANAN on 04/27/18 142 Duloxetine HCl (Duloxetine HCl) 60 Mg Capsule., (Reported) Entered as Reported by: SOCORRO TAYLOR on 05/08/22 1215 Last Action: New Order Estradiol (Estradiol Tablet) 1 Mg Tablet, 1 MG PO DAILY, (Reported) Entered as Reported by: CHELY BUCHANAN on 12/13/14 1152 Ferrous Sulfate (Ferosul) 220 Mg/5 Ml Solution, 220 MG PO Q48H, (Reported) Entered as Reported by: CHELY BUCHANAN on 04/27/18 142 Fluticasone Propionate (Flonase Allergy Relief) 9.9 Ml [place].susp, 9.9 ML NS PRN, (Reported) Entered as Reported by: CHELY BUCHANAN on 12/13/14 1152 Melatonin (Melatonin) 10 Mg Capsule, 10 MG PO HS, (Reported) Entered as Reported by: CHELY BUCHANAN on 04/27/18 142 Montelukast Sodium (Montelukast Sodium) 10 Mg Tablet, (Reported) Entered as Reported by: SOCORRO TAYLOR on 05/08/221214 Last Action: New Order Multivit-Min/FA/Lycopene/Lut (Centrum Silver Tablet) 1 Each Tablet, 1 EACH PO DAILY, (Reported) Entered as Reported by: CHELY BUCHANAN on 04/27/181428 Omeprazole (Omeprazole) 20 Mg Capsule.dr, 20 MG PO DAILY, (Reported) Entered as Reported by: CHELY BUCHANAN on 04/27/181428 Oxybutynin Chloride (Oxybutynin Chloride) 5 Mg Tablet, (Reported) Entered as Reported by: SOCORRO TAYLOR on 05/08/221214 Last Action: New Order Pramipexole Di-HCl (Pramipexole Dihydrochloride) 1 Mg Tablet, (Reported) Entered as Reported by: SOCORRO TAYLOR on 05/08/221214 Last Action: New Order Trazodone HCl (Trazodone HCl) 150 Mg Tablet, 150 MG PO HS, (Reported) Entered as Reported by: CHELY BUCHANAN on 04/27/181428 Discontinued Medications Chrom Laura/Brindal Maurer (Garcinia Cambogia Tablet) 1 Each Tablet, 1 EACH PO BID, (Reported) Discontinued Reason: No Longer Taking Entered as Reported by: CHELY BUCHANAN on 04/27/181428 Last Action: Discontinued Diphenhydramine HCl (Benadryl) 25 Mg Capsule, 25 MG PO DAILY, (Reported) Discontinued Reason: No Longer Taking Entered as Reported by: CHELY BUCHANAN on 04/27/181428 Last Action: Discontinued Oxycodone HCl/Acetaminophen (Oxycodon-Acetaminophen 7.5-325) 1 Each Tablet, 1 EACH PO Q6H PRN for PAIN-MODERATE, (Reported) Discontinued Reason: No Longer Taking Entered as Reported by: CHELY BUCHANAN on 04/27/181428 Last Action: Discontinued Review of Systems Review of Systems Constitutional: No chills, No fever Respiratory: See HPI Cardiovascular: See HPI, Chest Pain Gastrointestinal: No Symptoms Reported Genitourinary: No Symptoms Reported Musculoskeletal: no symptoms reported Skin: no symptoms reported Psychiatric/Neurological: No Symptoms Reported Endocrine: No Symptoms Reported Past [place]ec-Lzvjfc Hx Immunizations Up To Date Tetanus Booster (TDap): Unknown PED Vaccines UTD: Yes Seasonal Allergies Seasonal Allergies: Yes Past Medical History Surgeries: Yes (L7 RUPTURED DISC REPAIR, C7 discectomy, CARDIAC ABLATION) Cardiac, Hysterectomy, Orthopedic Respiratory: No Cardiac: Yes (SVT, ABLATION) High Cholesterol, Hypertension Neurological: Yes (FROM SPINAL STENOSIS) Neuropathy Reproductive Disorders: Yes (DUB, FIBROIDS) Female Reproductive Disorders: 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 Sexually Transmitted Disease: Yes (HERPES) HIV/AIDS: No Genitourinary: No Gastrointestinal: Yes Gastroesophageal Reflux, Chronic Constipation Musculoskeletal: Yes (SPINAL STENOSIS) Degenerate Disk Disease, Arthritis, Chronic Back Pain Endocrine: No HEENT: Yes (GLASSES) Loss of Vision: Bilateral Hearing Impairment: Hard of Hearing, Bilateral Hearing Aide Cancer: No Psychosocial: Yes Sleep Difficulties, Depression Integumentary: No Blood Disorders: Yes (ANEMIA) Adverse Reaction/Blood Tranf: No (N/A) Family Medical History Colon cancer 19 MOTHER LUNG CANCER 19 FATHER THYROID CANCER G8 SISTER No Pertinent Family Hx Physical Exam Vital Signs Vital Signs - First Documented 05/08/22 12:01 Temp 37.4 Pulse 121 Resp 18 B/P (MAP) 157/102 (120) Pulse Ox 95 Capillary Refill : Height, Weight, BMI Height: 5'4.00" Weight: 165lbs. 0.0oz. 74.531166md; 28.3 BMI Method:Stated General Appearance: No Apparent Distress, WD/WN Neck: Normal Inspection, Non Tender Respiratory: No Accessory Muscle Use, No Respiratory Distress Cardiovascular: No Edema, Tachycardia Extremity: Normal Inspection, Normal Range of Motion, Non Tender Neurologic/Psychiatric: Alert, Oriented x3, No Motor/Sensory Deficits Skin: Normal Color, Warm/Dry Progress/Results/Core Measures Results/Orders Lab Results Laboratory Tests Test 05/08/22 12:04 05/08/22 12:20 Range/Units White Blood Count 18.4 H 4.3-11.0 10^3/uL Red Blood Count 4.10 3.80-5.11 10^6/uL Hemoglobin 12.1 11.5-16.0 g/dL Hematocrit 36 35-52 % Mean Corpuscular Volume 87 80-99 fL Mean Corpuscular Hemoglobin 30 25-34 pg Mean Corpuscular Hemoglobin Concent 34 32-36 g/dL Red Cell Distribution Width 13.6 10.0-14.5 % Platelet Count 364 130-400 10^3/uL Mean Platelet Volume 8.4 L 9.0-12.2 fL Immature Granulocyte % (Auto) 1 % Neutrophils (%) (Auto) 79 H 42-75 % Lymphocytes (%) (Auto) 13 12-44 % Monocytes (%) (Auto) 7 0-12 % Eosinophils (%) (Auto) 0 0-10 % Basophils (%) (Auto) 0 0-10 % Neutrophils # (Auto) 14.6 H 1.8-7.8 10^3/uL Lymphocytes # (Auto) 2.3 1.0-4.0 10^3/uL Monocytes # (Auto) 1.3 H 0.0-1.0 10^3/uL Eosinophils # (Auto) 0.1 0.0-0.3 10^3/uL Basophils # (Auto) 0.1 0.0-0.1 10^3/uL Immature Granulocyte # (Auto) 0.1 0.0-0.1 10^3/uL Neutrophils % (Manual) 81 % Lymphocytes % (Manual) 13 % Monocytes % (Manual) 6 % Blood Morphology Comment NORMAL D-Dimer 0.47 0.00-0.49 UG/ML Sodium Level 139 135-145 MMOL/L Potassium Level 3.8 3.6-5.0 MMOL/L Chloride Level 103 98-107 MMOL/L Carbon Dioxide Level 24 21-32 MMOL/L Anion Gap 12 5-14 MMOL/L Blood Urea Nitrogen 15 7-18 MG/DL Creatinine 0.71 0.60-1.30 MG/DL Estimat Glomerular Filtration Rate 94 BUN/Creatinine Ratio 21 Glucose Level 124 H 70-105 MG/DL Calcium Level 9.6 8.5-10.1 MG/DL Corrected Calcium 9.2 8.5-10.1 MG/DL Magnesium Level 1.6 1.6-2.4 MG/DL Total Bilirubin 0.3 0.1-1.0 MG/DL Aspartate Amino Transf (AST/SGOT) 16 5-34 U/L Alanine Aminotransferase (ALT/SGPT) 26 0-55 U/L Alkaline Phosphatase 77 40-136 U/L Troponin I < 0.028 <0.028 NG/ML Total Protein 7.7 6.4-8.2 GM/DL Albumin 4.5 3.2-4.5 GM/DL Lipase 14 8-78 U/L Influenza Type A (RT-PCR) Not Detected Not Detecte Influenza Type B (RT-PCR) Not Detected Not Detecte SARS-CoV-2 RNA (RT-PCR) Not Detected Not Detecte My Orders Orders - JULIÁN DSOUZA DO Cbc With Automated Diff (05/08/22 12:04) Comprehensive Metabolic Panel (05/08/22 12:04) Lipase (05/08/22 12:04) Magnesium (05/08/22 12:04) Troponin I Alicja (05/08/22 12:04) Influenza A And B By Pcr (05/08/22 12:04) Covid 19 Inhouse Test (05/08/22 12:04) Chest 1 View, Ap/Pa Only (05/08/22 12:04) Ekg Tracing (05/08/22 12:04) Monitor-Rhythm Ecg Trace Only (05/08/22 12:04) Aspirin Chewable Tablet (Baby Aspirin Ch (05/08/22 12:15) Fibrin Degradation Products (05/08/22 12:10) Manual Differential (05/08/22 12:04) Azithromycin Injection (Zithromax Inject (05/08/22 12:48) Ceftriaxone 1 Gm Pre-Mix (Rocephin 1 Gm (05/08/22 12:48) Ed Admission (Communication) (05/08/22 12:51) Medications Given in ED Current Medications Medications Dose Ordered Sig/Bing Route Start Time Stop Time Status Last Admin Dose Admin Aspirin 324 mg ONCE ONCE PO 05/08/22 12:15 05/08/22 12:16 DC 05/08/22 12:24 324 MG Vital Signs/I&O 05/08/22 12:01 Temp 37.4 Pulse 121 Resp 18 B/P (MAP) 157/102 (120) Pulse Ox 95 Progress Progress Note : Progress Note Patient diagnostic studies were ordered reviewed and interpreted by me. She has elevated white count, mild elevated creatinine. Negative troponins, negative D- dimer. Patient's x-ray was reviewed by me with initial interpretation by me with final interpretation per radiology report. Radiology report was negative however I was concerned with possible early right-sided pneumonia especially in light of her symptoms and elevated white count. Patient to be admitted for observation to Dr. Marks. We did discuss patient with Dr. Marks who came and saw her in the ER and we reviewed x-ray labs together. Patient to be started on Rocephin and azithromycin. She will have further evaluation while admitted. She was stable upon admission. Initial ECG Impression Date: May 08, 2022 Initial ECG Impression Time: 12:07 Initial ECG Rate: 116 Initial ECG Rhythm: S.Tach Initial ECG Intervals: Normal Comment sinus tach Diagnostic Imaging Diagonstic Imaging: Xray Plain Films/CT/US/NM/MRI: chest Comments Date of Exam:05/08/22 CHEST 1 VIEW, AP/PA ONLY INDICATION: Chest pain. TECHNIQUE: Frontal chest obtained at 12:18 p.m. FINDINGS: Heart and mediastinal silhouette are normal in appearance. The lungs are clear. There is no pneumothorax or pleural fluid. IMPRESSION: Negative chest. Reviewed: Reviewed by Me, Reviewed/Discussed Departure Impression Primary Impression: Pneumonia Qualified Codes: J18.9 - Pneumonia, unspecified organism Disposition: ADMITTED INPATIENT Condition: Stable Admissions Decision to Admit Reason: Admit from ER (General) Decision to Admit/Date: May 08, 2022 Time/Decision to Admit Time: 12:00 Departure-Patient Inst. Referrals: MILLICENT MARKS DO (PCP/Family) Primary Care Physician JULIÁN DSOUZA DO May 08, 2022 12:04
[2022-05-08] MEDS ORDERED: ASPIRIN 81 MG CHEW (CHILDREN'S ASA) PO ONE (12:15)
[2022-05-08] MEDS ORDERED: DULO60CA59 (12:15)
[2022-05-08] MEDS ORDERED: PRAM1TAB5 PO (12:15)
[2022-05-08] MEDS ORDERED: OXYB5TAB13 PO (12:15)
[2022-05-08] MEDS ORDERED: MONT-40 PO (12:15)
[2022-05-08 12:17] LABS: BASOPHILS # (AUTO) 0.1 10^3/uL (0.0-0.1); BASOPHILS % (AUTO) 0 % (0-10); EOSINOPHILS # (AUTO) 0.1 10^3/uL (0.0-0.3); EOSINOPHILS % (AUTO) 0 % (0-10); HEMATOCRIT 36 % (35-52); HEMOGLOBIN 12.1 g/dL (11.5-16.0); LYMPHOCYTES # (AUTO) 2.3 10^3/uL (1.0-4.0); LYMPHOCYTES % (AUTO) 13 % (12-44); MEAN CORPUSCULAR HEMOGLOBIN 30 pg (25-34); MEAN CORPUSCULAR HGB CONC 34 g/dL (32-36); MEAN CORPUSCULAR VOLUME 87 fL (80-99); MEAN PLATELET VOLUME 8.4 fL (9.0-12.2); MONOCYTES # (AUTO) 1.3 10^3/uL (0.0-1.0); MONOCYTES % (AUTO) 7 % (0-12); NEUTROPHILS # (AUTO) 14.6 10^3/uL (1.8-7.8); NEUTROPHILS % (AUTO) 79 % (42-75); PLATELET COUNT 364 10^3/uL (130-400); WHITE BLOOD COUNT 18.4 10^3/uL (4.3-11.0)
[2022-05-08 12:28] LABS: ALBUMIN 4.5 GM/DL (3.2-4.5)
[2022-05-08 12:29] LABS: CHLORIDE 103 MMOL/L (98-107); POTASSIUM 3.8 MMOL/L (3.6-5.0); SODIUM 139 MMOL/L (135-145)
[2022-05-08 12:30] LABS: CALCIUM 9.6 MG/DL (8.5-10.1)
[2022-05-08 12:31] LABS: GLUCOSE 124 MG/DL (70-105); TOTAL PROTEIN 7.7 GM/DL (6.4-8.2)
[2022-05-08 12:32] LABS: CARBON DIOXIDE 24 MMOL/L (21-32)
[2022-05-08 12:33] LABS: BILIRUBIN,TOTAL 0.3 MG/DL (0.1-1.0)
[2022-05-08 12:34] LABS: ALKALINE PHOSPHATASE 77 U/L (40-136)
[2022-05-08 12:35] LABS: CREATININE SERUM 0.71 MG/DL (0.60-1.30); GFR ESTIMATED 94; LYMPHOCYTES % (MANUAL) 13 %; MONOCYTES % (MANUAL) 6 %; NEUTROPHILS % (MANUAL) 81 %; RBC MORPH NORMAL
[2022-05-08 12:36] LABS: BUN/CREATININE RATIO 21
[2022-05-08 12:37] LABS: MAGNESIUM 1.6 MG/DL (1.6-2.4)
[2022-05-08 12:38] LABS: ALANINE AMINOTRANSFERASE 26 U/L (0-55); LIPASE 14 U/L (8-78)
[2022-05-08] MEDS ORDERED: levETIRAcetam 1000 mg/NS 100ml 100 ML IV ONE (12:45)
[2022-05-08] MEDS ORDERED: AZITHROMYCIN INJECTION 500 MG in NS (IVPB) 250 ML IV STA (12:48)
[2022-05-08] MEDS ORDERED: cefTRIAXone 1 GM PRE-MIX 50 ML IV STA (12:48)
--- NOTE | 2022-05-08 12:48 | Diagnostic Imaging Report ---
INDICATION: Chest pain. TECHNIQUE: Frontal chest obtained at 12:18 p.m. FINDINGS: Heart and mediastinal silhouette are normal in appearance. The lungs are clear. There is no pneumothorax or pleural fluid. IMPRESSION: Negative chest. Dictated by: Dictated on workstation # [id number]
--- NOTE | 2022-05-08 13:52 | History & Physical ---
GURJITKRISTEL Kristin 05/08/22 1352: History of Present Illness History of Present Illness Reason for visit/HPI This is a 67 y/o female with PMH significant for congenital tachycardia s/p surgical management who presented to the ED today for chest pain. She says that she woke up around 3-4am this morning with crushing, central chest pain that she also felt in her neck and in her ears. She has not had an episode like this before. She reports that deep breaths increase the pain and for this reason she has been breathing very shallow which improves the pain. She also notes that sitting upright is a little bit more comfortable than laying flat on her back. She denies any recent fever, chills, SOB, [place], heart palpitations, N/V/D, or personal recent illness. She endorses seasonal allergies in which she sometimes coughs but says she has not experienced an increase in her cough or allergy symptoms. She does note that her daughter and who she has close contacts with have been coughing a lot recently and seemed sick. She denies any additio nal chronic heart conditions or lung conditions and is a never smoker. She came to the ED and workup suggested a possible pneumonia and IV antibiotics were started in the ED. As of now she says her pain has gone from a 10/10 to a 4/10 before receiving any treatments and right now it is manageable. She has a history of multiple cervical spine fusion surgeries and a portion of her discomfort is centered around this. She denies having taken anything at home to try to help with the pain. Date of Admission 05/08/22 Date Seen by a Provider: May 08, 2022 Time Seen by a Provider: 13:00 I consulted on this patient on 05/08/22 13:46 Attending Physician Manda Marks DO Admitting Physician Admitting Physician: Attending Physician: Consult Allergies and Home Medications Allergies Coded Allergies: Penicillins (Unverified Adverse Reaction, Intermediate, rash, dyspnea, 04/27/18) Patient Home Medication List Biotin (Biotin) 10,000 Mcg Tab.rapdis, 10,000 MCG PO DAILY, (Reported) Entered as Reported by: CHELY BUCHANAN on 04/27/18 1429 Cyclobenzaprine HCl (Cyclobenzaprine HCl) 10 Mg Tablet, 10 MG PO PRN, (Reported) Entered as Reported by: CHELY BUCHANAN on 04/27/18 142 Duloxetine HCl (Cymbalta) 30 Mg Capsule.dr, 30 MG PO BID, (Reported) Entered as Reported by: CHELY BUCHANAN on 04/27/18 142 Duloxetine HCl (Duloxetine HCl) 60 Mg Capsule.dr, 120 MG PO HS Prescribed by: MANDA MARKS on 05/08/222022 Last Action: Converted Estradiol (Estradiol Tablet) 1 Mg Tablet, 1 MG PO DAILY, (Reported) Entered as Reported by: CHELY BUCHANAN on 12/13/14 115 Ferrous Sulfate (Ferosul) 220 Mg/5 Ml Solution, 220 MG PO Q48H, (Reported) Entered as Reported by: CHELY BUCHANAN on 04/27/18 142 Fluticasone Propionate (Flonase Allergy Relief) 9.9 Ml [place].susp, 9.9 ML NS PRN, (Reported) Entered as Reported by: CHELY BUCHANAN on 12/13/14 115 Melatonin (Melatonin) 10 Mg Capsule, 10 MG PO HS, (Reported) Entered as Reported by: CHELY BUCHANAN on 04/27/18 142 Montelukast Sodium (Montelukast Sodium) 10 Mg Tablet, (Reported) Entered as Reported by: SOCORRO TAYLOR on 05/08/221214 Last Action: Continued Multivit-Min/FA/Lycopene/Lut (Centrum Silver Tablet) 1 Each Tablet, 1 EACH PO DAILY, (Reported) Entered as Reported by: CHELY BUCHANAN on 04/27/18 142 Omeprazole (Omeprazole) 20 Mg Capsule.dr, 20 MG PO DAILY, (Reported) Entered as Reported by: CHELY BUCHANAN on 04/27/18 142 Oxybutynin Chloride (Oxybutynin Chloride) 5 Mg Tablet, (Reported) Entered as Reported by: SOCORRO TAYLOR on 05/08/221214 Last Action: New Order Pramipexole Di-HCl (Pramipexole Dihydrochloride) 1 Mg Tablet, (Reported) Entered as Reported by: SOCORRO TAYLOR on 05/08/22 121 Last Action: Converted Trazodone HCl (Trazodone HCl) 150 Mg Tablet, 150 MG PO HS, (Reported) Entered as Reported by: CHELY BUCHANAN on 04/27/181428 Discontinued Medications Chrom Laura/Brindal Maurer (Garcinia Cambogia Tablet) 1 Each Tablet, 1 EACH PO BID, (Reported) Discontinued Reason: No Longer Taking Entered as Reported by: CHELY BUCHANAN on 04/27/181428 Last Action: Discontinued Diphenhydramine HCl (Benadryl) 25 Mg Capsule, 25 MG PO DAILY, (Reported) Discontinued Reason: No Longer Taking Entered as Reported by: CHELY BUCHANAN on 04/27/181428 Last Action: Discontinued Oxycodone HCl/Acetaminophen (Oxycodon-Acetaminophen 7.5-325) 1 Each Tablet, 1 EACH PO Q6H PRN for PAIN-MODERATE, (Reported) Discontinued Reason: No Longer Taking Entered as Reported by: CHELY BUCHANAN on 04/27/181428 Last Action: Discontinued Past Yzymnpd-Jgwsrp-Rottsc Hx Patient Social History Marrital Status: Tobacco Use?: No Substance use?: No Alcohol Use?: No Pt feels they are or have been: No Immunizations Up To Date Date of Influenza Vaccine: Nov 24, 2017 Tetanus Booster (TDap): Unknown PED Vaccines UTD: Yes Seasonal Allergies Seasonal Allergies: Yes Current Status Advance Directives: No Primary Language: Gabonese Preferred Spoken Language: Gabonese Past Medical History Surgeries: Cardiac, Hysterectomy, Orthopedic High Cholesterol, Hypertension 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 Sexually Transmitted Disease: Yes (HERPES) HIV/AIDS: No Gastroesophageal Reflux, Chronic Constipation Degenerate Disk Disease, Arthritis, Chronic Back Pain Loss of Vision: Bilateral Hearing Impairment: Hard of Hearing, Bilateral Hearing Aide Sleep Difficulties, Depression Blood Disorders: Yes (ANEMIA) Adverse Reaction/Blood Tranf: No (N/A) Family Medical History Colon cancer 19 MOTHER LUNG CANCER 19 FATHER THYROID CANCER G8 SISTER No Pertinent Family Hx Review of Systems Constitutional: see HPI; No chills, No diaphoresis, No dizziness, No fever, No weakness EENTM: see HPI, ear pain Respiratory: see HPI Cardiovascular: see HPI Gastrointestinal: no symptoms reported Genitourinary: no symptoms reported Musculoskeletal: no symptoms reported Skin: no symptoms reported Psychiatric/Neurological: No Symptoms Reported Physical Exam Vital Signs Vital Signs - First Documented 05/08/22 12:01 Temp 37.4 Pulse 121 Resp 18 B/P (MAP) 157/102 (120) Pulse Ox 95 Capillary Refill : Less Than 3 Seconds Height, Weight, BMI Height: 5'4.00" Weight: 165lbs. 0.0oz. 74.558769qa; 32.00 BMI Method:Stated General Appearance: No Apparent Distress, WD/WN Eyes: Bilateral Eye PERRL, Bilateral Eye EOMI HEENT: PERRL/EOMI, Pharynx Normal Neck: Normal Inspection, Non Tender, Supple Respiratory: Chest Non Tender, Lungs Clear, Normal Breath Sounds Cardiovascular: Regular Rate, Rhythm, No Edema, No Gallop, No Murmur Gastrointestinal: Normal Bowel Sounds, Non Tender, Soft Extremity: Normal Inspection, No Pedal Edema Neurologic/Psychiatric: Alert, Oriented x3, Normal Mood/Affect Skin: Normal Color, Warm/Dry Lymphatic: No Adenopathy Laboratory Tests 05/08/22 12:04 Assessment/Plan Admission Diagnosis Vital Signs Date Time Temp Pulse Resp B/P (MAP) Pulse Ox O2 Delivery O2 Flow Rate FiO2 05/08/22 12:01 37.4 121 18 157/102 (120) 95 Radiology NAME: ZION RENDON [facility] REC#: [id number] PT STATUS: REG ER : 1955 PHYSICIAN: JULIÁN DSOUZA DO ADMIT DATE: 05/08/22/ER Signed Date of Exam:05/08/22 CHEST 1 VIEW, AP/PA ONLY INDICATION: Chest pain. TECHNIQUE: Frontal chest obtained at 12:18 p.m. FINDINGS: Heart and mediastinal silhouette are normal in appearance. The lungs are clear. There is no pneumothorax or pleural fluid. IMPRESSION: Negative chest. Dictated by: Dictated on workstation # [id number] Dict: 05/08/22 1244 Trans: 05/08/22 1324 [id number] [id number] Interpreted by: KELLY DUNAWAY MD Electronically signed by: KELLY DUNAWAY MD 05/08/22 1324 Assessment: This is a 67 y/o female who presented to the ED and was admitted for chest pain and admitted for probable PNA. Chest Pain ACS/cardiogenic vs pulmonary vs MSK origin SIRS+ (tachycardia, WBC >12) Meets sepsis criteria -CXR concerning for RLL/RML pneumonia on review, though report says negative CXR -Troponin, EKG negative, pain not characteristic of cardiac process -WBC of 18.1, afebrile -Recent possible sick contacts -VSS - tachycardic but somewhat chronic for this pt. Not requiring O2. Pain still present. -D-dimer negative -Will start rocephin and azithromycin to cover for PNA given clinical picture and continue to observe -Repeat CXR in AM to re-evaluate Neuropathy - undetermined etiology -Pt has scheduled epidural for pain management -Takes duloxetine, pramipexole for home meds; can continue GERD -Omeprazole at home -Continue Seasonal allergies -Montelukast at home; can continue Menopause s/p TLH -On estradiol 1mg daily, can continue Insomnia -Takes trazadone nightly -Cyclobenzaprine PRN -May continue FEN/GI -VSS, no fluids at this time as patient is hungry/drinking -Monitor/replace electrolytes PRN -Regular diet as tolerated -Bowel regimen PRN, continue home PPI DVT PPx: Lovenox, SCDs Disposition: Stable. Meets SIRS/Sepsis criteria. Will admit for observation and evaluate progression of patient's symptoms and trend labs. MANDA MARKS DO 05/09/22 1703: Allergies and Home Medications Allergies Coded Allergies: Penicillins (Unverified Adverse Reaction, Intermediate, rash, dyspnea, 04/27/18) Patient Home Medication List Home Medication List Reviewed: Yes Biotin (Biotin) 10,000 Mcg Tab.rapdis, 10,000 MCG PO DAILY, (Reported) Entered as Reported by: CHELY BUCHANAN on 04/27/181428 Cyclobenzaprine HCl (Cyclobenzaprine HCl) 10 Mg Tablet, 10 MG PO PRN, (Reported) Entered as Reported by: CHELY BUCHANAN on 04/27/181428 Duloxetine HCl (Cymbalta) 30 Mg Capsule., 30 MG PO BID, (Reported) Entered as Reported by: CHELY BUCHANAN on 04/27/181428 Duloxetine HCl (Duloxetine HCl) 60 Mg Capsule., 120 MG PO HS Prescribed by: MANDA MARKS on 3/22/23 2023 Last Action: Converted Estradiol (Estradiol Tablet) 1 Mg Tablet, 1 MG PO DAILY, (Reported) Entered as Reported by: CHELY BUCHANAN on 12/13/14 115 Ferrous Sulfate (Ferosul) 220 Mg/5 Ml Solution, 220 MG PO Q48H, (Reported) Entered as Reported by: CHELY BUCHANAN on 04/27/18 142 Fluticasone Propionate (Flonase Allergy Relief) 9.9 Ml [place].susp, 9.9 ML NS PRN, (Reported) Entered as Reported by: CHELY BUCHANAN on 12/13/14 115 Melatonin (Melatonin) 10 Mg Capsule, 10 MG PO HS, (Reported) Entered as Reported by: CHELY BUCHANAN on 04/27/18 142 Montelukast Sodium (Montelukast Sodium) 10 Mg Tablet, (Reported) Entered as Reported by: SOCORRO TAYLOR on 05/08/22 121 Last Action: Continued Multivit-Min/FA/Lycopene/Lut (Centrum Silver Tablet) 1 Each Tablet, 1 EACH PO DAILY, (Reported) Entered as Reported by: CHELY BUCHANAN on 04/27/18 142 Omeprazole (Omeprazole) 20 Mg Capsule.dr, 20 MG PO DAILY, (Reported) Entered as Reported by: CHELY BUCHANAN on 04/27/181428 Oxybutynin Chloride (Oxybutynin Chloride) 5 Mg Tablet, (Reported) Entered as Reported by: SOCORRO TAYLOR on 05/08/22 121 Last Action: New Order Pramipexole Di-HCl (Pramipexole Dihydrochloride) 1 Mg Tablet, (Reported) Entered as Reported by: SOCORRO TAYLOR on 05/08/22 121 Last Action: Converted Trazodone HCl (Trazodone HCl) 150 Mg Tablet, 150 MG PO HS, (Reported) Entered as Reported by: CHELY BUCHANAN on 04/27/18 142 Discontinued Medications Chrom Laura/Brindal Maurer (Garcinia Cambogia Tablet) 1 Each Tablet, 1 EACH PO BID, (Reported) Discontinued Reason: No Longer Taking Entered as Reported by: CHELY BUCHANAN on 04/27/18 1428 Last Action: Discontinued Diphenhydramine HCl (Benadryl) 25 Mg Capsule, 25 MG PO DAILY, (Reported) Discontinued Reason: No Longer Taking Entered as Reported by: CHELY BUCHANAN on 04/27/181428 Last Action: Discontinued Oxycodone HCl/Acetaminophen (Oxycodon-Acetaminophen 7.5-325) 1 Each Tablet, 1 EACH PO Q6H PRN for PAIN-MODERATE, (Reported) Discontinued Reason: No Longer Taking Entered as Reported by: CHELY BUCHANAN on 04/27/181428 Last Action: Discontinued Past Xeafjco-Ywmqja-Fylqom Hx Patient Social History Marrital Status: Employed/Student: retired Smoking Status: Never a Smoker Family Medical History Colon cancer 19 MOTHER LUNG CANCER 19 FATHER THYROID CANCER G8 SISTER Review of Systems Constitutional: see HPI Physical Exam General Appearance: No Apparent Distress, WD/WN, Chronically ill Respiratory: Lungs Clear, Normal Breath Sounds Cardiovascular: Tachycardia Assessment/Plan Assessment and Plan Assessment: Early PNA Tachycardia Dehydration Chest pain no evidence of ACS or PE Plan: Admit IV abx IVF Admission Diagnosis Admission Status: Observation Supervisory-Addendum Brief Verification & Attestation Participated in pt care: history, MDM, physical Personally performed: exam, history, MDM, supervision of care Care discussed with: Medical Student Procedures: n/a Results interpretation: Verified all documentation Verification and Attestation of Medical Student E/M Service A medical student performed and documented this service in my presence. I reviewed and verified all information documented by the medical student and made modifications to such information, when appropriate. I personally performed the physical exam and medical decision making. Manda Marks, May 09, 2022,05:03 KRISTEL CAGLE May 08, 2022 13:52 MANDA MARKS DO May 09, 2022 05:03
[2022-05-08] MEDS ORDERED: KETOROLAC 30 MG/ML VIAL IVP STA (14:45)
[2022-05-08 15:20] VITALS: BP 131/58
[2022-05-08] MEDS ORDERED: ONDANSETRON 4 MG (ZOFRAN) ORAL DISSOLVE TAB PO PRN (15:45)
[2022-05-08] MEDS ORDERED: LACTULOSE SYRUP 10GM/15ML (ENULOSE) 30ML UDC PO PRN (15:45)
[2022-05-08] MEDS ORDERED: ONDANSETRON 4 MG/2 ML (SDV) Z0FRAN IV PRN (15:45)
[2022-05-08] MEDS ORDERED: ANTACID SUSP 30 ML UDC (MYLANTA) PO PRN (15:45)
[2022-05-08] MEDS ORDERED: diphenhydrAMINE 50 MG/ML INJ (BENADRYL) IVP PRN (15:45)
[2022-05-08] MEDS ORDERED: CALCIUM CARBONATE 500 MG (TUMS) TAB.CHEW PO PRN (15:45)
[2022-05-08] MEDS ORDERED: polyethylene glycoL POWDER 17 GM (MIRALAX) PACK PO PRN (15:45)
[2022-05-08] MEDS ORDERED: BISACODYL 10 MG SUPP (DULCOLAX) PR PRN (15:45)
[2022-05-08] MEDS ORDERED: MILK OF MAGNESIA 400 MG/5 ML 30 ML UDC PO PRN (15:45)
[2022-05-08] MEDS ORDERED: ACETAMINOPHEN 325 MG TABLET PO PRN (15:45)
[2022-05-08] MEDS ORDERED: HYDROmorphone 2 MG/ML VIAL (DILAUDID) IV PRN (15:45)
[2022-05-08] MEDS ORDERED: MELATONIN 3 MG TABLET PO PRN (15:45)
[2022-05-08] MEDS ORDERED: diphenhydrAMINE 25 MG TAB (BENADRYL) PO PRN (15:45)
[2022-05-08] MEDS ORDERED: AZITHROMYCIN INJECTION 500 MG in NS (IVPB) 250 ML IV NR (16:00)
[2022-05-08 16:04] VITALS: BP 142/94
[2022-05-08] MEDS: NS IV 1000 ML 1,000 ML IV SCH (16:05)
[2022-05-08] MEDS: ENOXAPARIN 40 MG/0.4 ML (LOVENOX) SYR SC SCH (16:06)
[2022-05-08 19:30] VITALS: BP 118/58
[2022-05-08] MEDS: SENNOSIDES 8.6 MG (SENOKOT) TAB PO SCH (19:36)
[2022-05-08] MEDS: DOCUSATE SODIUM 100 MG (COLACE) CAP PO SCH (19:36)
[2022-05-08] MEDS ORDERED: DULO60CA59 PO (20:23)
[2022-05-08] MEDS: MONTELUKAST 10 MG (SINGULAIR) TAB PO SCH (21:25)
[2022-05-08] MEDS: DULoxetine 30 MG (CYMBALTA) CAP PO SCH (21:25)
[2022-05-08] MEDS: PRAMIPEXOLE 0.5 MG TAB (MIRAPEX) PO SCH (21:28)
[2022-05-08 23:50] VITALS: BP 118/57
[2022-05-09 04:08] VITALS: BP 126/58
[2022-05-09] MEDS: NS IV 1000 ML 1,000 ML IV SCH (04:15)
[2022-05-09] MEDS: KETOROLAC 15 MG/ML VIAL IV PRN ×2 (04:16→15:37)
[2022-05-09 05:50] LABS: BASOPHILS % (AUTO) 0 % (0-10); EOSINOPHILS # (AUTO) 0.1 10^3/uL (0.0-0.3); EOSINOPHILS % (AUTO) 1 % (0-10); HEMATOCRIT 32 % (35-52); HEMOGLOBIN 10.6 g/dL (11.5-16.0); LYMPHOCYTES # (AUTO) 1.7 10^3/uL (1.0-4.0); LYMPHOCYTES % (AUTO) 16 % (12-44); MEAN CORPUSCULAR HEMOGLOBIN 29 pg (25-34); MEAN CORPUSCULAR HGB CONC 33 g/dL (32-36); MEAN CORPUSCULAR VOLUME 88 fL (80-99); MEAN PLATELET VOLUME 8.6 fL (9.0-12.2); MONOCYTES # (AUTO) 1.1 10^3/uL (0.0-1.0); MONOCYTES % (AUTO) 10 % (0-12); NEUTROPHILS # (AUTO) 7.6 10^3/uL (1.8-7.8); NEUTROPHILS % (AUTO) 72 % (42-75); PLATELET COUNT 312 10^3/uL (130-400); WHITE BLOOD COUNT 10.6 10^3/uL (4.3-11.0)
[2022-05-09 06:02] LABS: ALBUMIN 3.8 GM/DL (3.2-4.5)
[2022-05-09 06:03] LABS: POTASSIUM 3.4 MMOL/L (3.6-5.0)
[2022-05-09 06:04] LABS: CALCIUM 8.3 MG/DL (8.5-10.1)
[2022-05-09 06:05] LABS: TOTAL PROTEIN 6.7 GM/DL (6.4-8.2)
[2022-05-09 06:07] LABS: BILIRUBIN,TOTAL 0.5 MG/DL (0.1-1.0)
[2022-05-09 06:09] LABS: CREATININE SERUM 0.69 MG/DL (0.60-1.30)
--- NOTE | 2022-05-09 07:54 | Diagnostic Imaging Report ---
EXAMINATION: Chest 2 view HISTORY: 05/08/2022 COMPARISON: None available. FINDINGS: Heart size and pulmonary vasculature are normal. The lungs are clear without consolidation, pleural effusion, or pneumothorax. The osseous structures are intact. IMPRESSION: 1. No acute radiographic abnormality in the chest. Dictated by: Dictated on workstation # [id number]
[2022-05-09 08:12] VITALS: BP 127/70
[2022-05-09] MEDS: SENNOSIDES 8.6 MG (SENOKOT) TAB PO SCH ×2 (08:31→20:02)
[2022-05-09] MEDS: DOCUSATE SODIUM 100 MG (COLACE) CAP PO SCH ×2 (08:31→20:02)
[2022-05-09] MEDS: AZITHROMYCIN 250 MG TAB (ZITHROMAX) PO SCH (08:31)
[2022-05-09] MEDS: cefTRIAXone 1 GM PRE-MIX 50 ML IV SCH (08:31)
[2022-05-09 12:15] VITALS: BP 146/64
[2022-05-09 12:26] LABS: ABG BASE EXCESS 1.3 MMOL/L (-2.5-2.5); ABG OXYGEN SATURATION 98 % (94-100); ABG PCO2 36 MMHG (35-45); ABG PH 7.45 (7.37-7.43); ABG PO2 78 MMHG (79-93)
[2022-05-09 12:29] LABS: ALLENS TEST YES-POS; INSPIRED O2 2; VENTILATOR NO
--- NOTE | 2022-05-09 12:44 | Consultation-Cardiology ---
HPI-Cardiology Cardiology Consultation Date of Consultation 05/09/22 Date of Admission Time Seen by Provider: 12:40 Indication: Chest pain HPI 67-year-old lady with history of reentry tachycardia, underwent ablation done in [facility] in [place] in the past. Currently following with Dr. Lucas at [facility]. She woke up this morning around 3:57 in the morning with crushing chest pain r adiating up to her neck and shortness of breath. Waited until this morning and came into the emergency room. She denied any fever or chills. No cough or sputum. Reporting still having some dyspnea and some chest discomfort. Home Medications & Allergies Allergies: Coded Allergies: Penicillins (Unverified Adverse Reaction, Intermediate, rash, dyspnea, 04/27/18) Home Medication List Reviewed: Yes [id number]-[id number]-Opztxi Hx Patient Social History Marital Status: Employed/Student: retired Smoking Status: Never a Smoker 2nd Hand Smoke Exposure: Yes Recent Hopitalizations: No Have you traveled recently?: No Alcohol Use?: Yes Substance type: Caffeine Immunizations Up To Date Tetanus Booster (TDap): Unknown Date of Influenza Vaccine: Nov 18, 2022 Past Medical History Discussed below Family Medical History Significant Family History: No Pertinent Family Hx Family History: Colon cancer 19 MOTHER LUNG CANCER 19 FATHER THYROID CANCER G8 SISTER Review of Systems-General Review of Systems Constitutional: see HPI EENTM: see HPI, ear pain Respiratory: see HPI; No cough, No dyspnea on exertion, No hemoptysis, No orthopnea, No phlegm; short of breath; No stridor, No wheezing, No other Cardiovascular: No no symptoms reported; see HPI, chest pain; No edema, No Hx of Intervention, No palpitations, No syncope, No vascular heart diseas, No other Gastrointestinal: no symptoms reported Genitourinary: no symptoms reported Musculoskeletal: no symptoms reported Skin: no symptoms reported Psychiatric/Neurological: No Symptoms Reported Reviewed Test Results Reviewed Test Results Lab Laboratory Tests Test 05/09/22 05:16 05/09/22 12:17 Range/Units White Blood Count 10.6 4.3-11.0 10^3/uL Red Blood Count 3.62 L 3.80-5.11 10^6/uL Hemoglobin 10.6 L 11.5-16.0 g/dL Hematocrit 32 L 35-52 % Mean Corpuscular Volume 88 80-99 fL Mean Corpuscular Hemoglobin 29 25-34 pg Mean Corpuscular Hemoglobin Concent 33 32-36 g/dL Red Cell Distribution Width 13.9 10.0-14.5 % Platelet Count 312 130-400 10^3/uL Mean Platelet Volume 8.6 L 9.0-12.2 fL Immature Granulocyte % (Auto) 1 % Neutrophils (%) (Auto) 72 42-75 % Lymphocytes (%) (Auto) 16 12-44 % Monocytes (%) (Auto) 10 0-12 % Eosinophils (%) (Auto) 1 0-10 % Basophils (%) (Auto) 0 0-10 % Neutrophils # (Auto) 7.6 1.8-7.8 10^3/uL Lymphocytes # (Auto) 1.7 1.0-4.0 10^3/uL Monocytes # (Auto) 1.1 H 0.0-1.0 10^3/uL Eosinophils # (Auto) 0.1 0.0-0.3 10^3/uL Basophils # (Auto) 0.0 0.0-0.1 10^3/uL Immature Granulocyte # (Auto) 0.1 0.0-0.1 10^3/uL Erythrocyte Sedimentation Rate 36 H 0-30 MM/HR D-Dimer 0.80 H 0.00-0.49 UG/ML Sodium Level 137 135-145 MMOL/L Potassium Level 3.4 L 3.6-5.0 MMOL/L Chloride Level 104 98-107 MMOL/L Carbon Dioxide Level 22 21-32 MMOL/L Anion Gap 11 5-14 MMOL/L Blood Urea Nitrogen 11 7-18 MG/DL Creatinine 0.69 0.60-1.30 MG/DL Estimat Glomerular Filtration Rate 96 BUN/Creatinine Ratio 16 Glucose Level 121 H 70-105 MG/DL Calcium Level 8.3 L 8.5-10.1 MG/DL Corrected Calcium 8.5 8.5-10.1 MG/DL Total Bilirubin 0.5 0.1-1.0 MG/DL Aspartate Amino Transf (AST/SGOT) 14 5-34 U/L Alanine Aminotransferase (ALT/SGPT) 21 0-55 U/L Alkaline Phosphatase 72 40-136 U/L C-Reactive Protein High Sensitivity 18.28 H 0.00-0.50 MG/DL B-Type Natriuretic Peptide 75.4 <100.0 PG/ML Total Protein 6.7 6.4-8.2 GM/DL Albumin 3.8 3.2-4.5 GM/DL Blood Gas Puncture Site LEFT RAD Blood Gas Patient Temperature 37.0 Arterial Blood pH 7.45 H 7.37-7.43 Arterial Blood Partial Pressure CO2 36 35-45 MMHG Arterial Blood Partial Pressure O2 78 L 79-93 MMHG Arterial Blood HCO3 25 23-27 MMOL/L Arterial Blood Total CO2 26.0 21.0-31.0 MMOL/L Arterial Blood Oxygen Saturation 98 94-100 % Arterial Blood Base Excess 1.3 -2.5-2.5 MMOL/L Luis Test YES-POS Blood Gas Ventilator Setting NO Blood Gas Inspired Oxygen 2 Physical Exam Physical Exam Vital Signs Vital Signs - First Documented 05/08/22 05/08/22 05/08/22 12:01 15:00 23:50 Temp 37.4 Pulse 121 Resp 18 B/P (MAP) 157/102 (120) Pulse Ox 95 O2 Delivery Room Air O2 Flow Rate 2.00 Capillary Refill : Less Than 3 Seconds Height, Weight, BMI Height: 5'4.00" Weight: 165lbs. 0.0oz. 74.614271mo; 32.36 BMI Method:Stated General Appearance: No Apparent Distress, WD/WN, Chronically ill Eyes: Bilateral Eye PERRL, Bilateral Eye EOMI HEENT: PERRL/EOMI, Pharynx Normal Neck: Normal Inspection, Non Tender, Supple Respiratory: Lungs Clear, Normal Breath Sounds Cardiovascular: Tachycardia Gastrointestinal: Normal Bowel Sounds, Non Tender, Soft Extremity: Normal Inspection, No Pedal Edema Neurologic/Psychiatric: Alert, Oriented x3, Normal Mood/Affect Skin: Normal Color, Warm/Dry Lymphatic: No Adenopathy A/P-Cardiology Admission Diagnosis Chest pain Shortness of breath Palpitation Tachycardia Assessment/Plan Chest pain nonspecific etiology associated with shortness of breath Resembling angina. EKG and first troponin set was normal, I will repeat troponin stat I am planning to evaluate exercise stress test Mild dyspnea on exertion, elevated CRP Chest x-ray did not show any acute abnormality. Receiving treatment for early pneumonia Palpitation, history of reentry tachycardia with ablation done in the past over 10 years ago at [facility] in [place] Sinus tachycardia, currently in baseline sinus tachycardia SYLVIA CHÁVEZ MD May 09, 2022 12:44
[2022-05-09] MEDS ORDERED: FESO45ML PO (12:52)
[2022-05-09] MEDS ORDERED: DULO60CA59 PO (12:52)
[2022-05-09] MEDS ORDERED: MAGN400T39 PO (12:52)
[2022-05-09] MEDS ORDERED: CYAN-41 PO (12:52)
[2022-05-09] MEDS ORDERED: IOHEXOL 350 MG/ML 100 ML (OMNIPAQUE 350) VIAL IV ONE (13:00)
[2022-05-09] MEDS ORDERED: NS 100 ML (IVPB) BAG IV ONE (13:00)
[2022-05-09] MEDS ORDERED: HOLD METFORMIN - RECEIVED CONTRAST 20 ML VIAL IV SCH (13:00)
--- NOTE | 2022-05-09 13:47 | Diagnostic Imaging Report ---
PROCEDURE: CT angiography of the chest with contrast. TECHNIQUE: Multiple contiguous axial images were obtained through the chest after uneventful bolus administration of intravenous contrast. 3D reconstructed CTA MIP acquisitions were also performed. Auto Exposure Controls were utilized during the CT exam to meet ALARA standards for radiation dose reduction. INDICATION: Shortness of air and pneumonia. No prior studies are available for comparison. FINDINGS: Evaluation of the pulmonary arterial system is without evidence of thromboembolism. No filling defects are seen within central, lobar, or segmental branches. The thoracic aorta has normal caliber. There is no dissection. No pericardial or pleural fluid is identified. There are areas of subsegmental atelectasis in the lingula and bilateral lower lobes. The upper abdomen does show hepatic steatosis. No other significant abnormality is seen. IMPRESSION: 1. No evidence of pulmonary embolism or acute aortic disease. 2. Bibasilar subsegmental atelectasis. 3. Hepatic steatosis. Dictated by: Dictated on workstation # [id number]
--- NOTE | 2022-05-09 14:13 | Progress Note ---
KRISTEL CAGLE 05/09/22 1413: Subjective Date Seen by a Provider: May 09, 2022 Time Seen by a Provider: 09:30 Subjective/Events-last exam Pt is doing a little better she thinks. Her chest pain has improved, especially while in bed, though when she gets up to use the restroom it increases signific antly and is still causing her to be very short of breath and tired feeling. She is eating ok and drinking ok. She denies any chills, N/V. She denies palpitations. She just doesn't feel right she says. She's voiding and had a BM. She says her LARSEN has worsened and says excedrin helps when she gets them like this. She says her jaw pain is better but still has some pain in her ears but thinks putting her hearing aids made that part worse. She describes her headache as frontal and over the top into the back of her head without including the temporal areas. Objective Exam Last Set of Vital Signs Vital Signs Date Time Temp Pulse Resp B/P (MAP) Pulse Ox O2 Delivery O2 Flow Rate FiO2 05/09/22 13:00 120 05/09/22 12:15 37.6 18 146/64 (91) 94 Nasal Cannula 2.00 Capillary Refill : Less Than 3 Seconds I&O Intake and Output 05/09/22 00:00 Intake Total 300 ml Balance 300 ml Intake Oral 300 ml Daily Weight Change No General: Alert, Oriented X3 HEENT: Atraumatic, PERRLA, EOMI, Other (Denies any vision changes. Headache in frontal/parietal/occipital areas wrapping from front to back. Spares temporal area.) Neck: Supple, No JVD Lungs: Clear to Auscultation, Normal Air Movement, Other (Pain with deep inspiration. Pain/tenderness to palpation at costochondral joints.) Heart: Regular Rate, Normal S1, Normal S2, No Murmurs Abdomen: Normal Bowel Sounds, Soft Extremities: No Clubbing, No Edema, Normal Pulses, No Tenderness/Swelling Skin: No Rashes Psych/Mental Status: Mental Status NL, Mood NL Results Lab Laboratory Tests 05/09/22 05:16: White Blood Count 10.6, Red Blood Count 3.62L, Hemoglobin 10.6L, Hematocrit 32L, Mean Corpuscular Volume 88, Mean Corpuscular Hemoglobin 29, Mean Corpuscular Hemoglobin Concent 33, Red Cell Distribution Width 13.9, Platelet Count 312, Mean Platelet Volume 8.6L, Immature Granulocyte % (Auto) 1, Neutrophils (%) (Auto) 72, Lymphocytes (%) (Auto) 16, Monocytes (%) (Auto) 10, Eosinophils (%) (Auto) 1, Basophils (%) (Auto) 0, Neutrophils # (Auto) 7.6, Lymphocytes # (Auto) 1.7, Monocytes # (Auto) 1.1H, Eosinophils # (Auto) 0.1, Basophils # (Auto) 0.0, Immature Granulocyte # (Auto) 0.1, Erythrocyte Sedimentation Rate 36H, D-Dimer 0.80H, Sodium Level 137, Potassium Level 3.4L, Chloride Level 104, Carbon Dioxide Level 22, Anion Gap 11, Blood Urea Nitrogen 11, Creatinine 0.69, Estimat Glomerular Filtration Rate 96, BUN/Creatinine Ratio 16, Glucose Level 121H, Calcium Level 8.3L, Corrected Calcium 8.5, Total Bilirubin 0.5, Aspartate Amino Transf (AST/SGOT) 14, Alanine Aminotransferase (ALT/SGPT) 21, Alkaline Phosphatase 72, Troponin I < 0.028, C-Reactive Protein High Sensitivity 18.28H, B-Type Natriuretic Peptide 75.4, Total Protein 6.7, Albumin 3.8 05/09/22 12:17: Blood Gas Puncture Site LEFT RAD, Blood Gas Patient Temperature 37.0, Arterial Blood pH 7.45H, Arterial Blood Partial Pressure CO2 36, Arterial Blood Partial Pressure O2 78L, Arterial Blood HCO3 25, Arterial Blood Total CO2 26.0, Arterial Blood Oxygen Saturation 98, Arterial Blood Base Excess 1.3, Luis Test YES-POS, Blood Gas Ventilator Setting NO, Blood Gas Inspired Oxygen 2 Radiology NAME: ZION RENDON [employer] REC#: [id number] PT STATUS: ADM Davi : 1955 PHYSICIAN: MANDA MARKS DO ADMIT DATE: 05/08/22 Signed Date of Exam:05/09/22 CHEST PA/LAT (2 VIEW) EXAMINATION: Chest 2 view HISTORY: 05/08/2022 COMPARISON: None available. FINDINGS: Heart size and pulmonary vasculature are normal. The lungs are clear without consolidation, pleural effusion, or pneumothorax. The osseous structures are intact. IMPRESSION: 1. No acute radiographic abnormality in the chest. Dictated by: Dictated on workstation # [id number] Dict: 05/09/22 0750 Trans: 05/09/22 0801 [facility] [id number] Interpreted by: VIKASH GAMEZ DO Electronically signed by: VIKASH GAMEZ DO 05/09/22 0801 NAME: ZION RENDON [facility] REC#: [id number] PT STATUS: ADM Davi : 1955 PHYSICIAN: MANDA MARKS DO ADMIT DATE: 05/08/22 Draft Date of Exam:05/09/22 CT ANGIO CHEST W PROCEDURE: CT angiography of the chest with contrast. TECHNIQUE: Multiple contiguous axial images were obtained through the chest after uneventful bolus administration of intravenous contrast. 3D reconstructed CTA MIP acquisitions were also performed. Auto Exposure Controls were utilized during the CT exam to meet ALARA standards for radiation dose reduction. INDICATION: Shortness of air and pneumonia. No prior studies are available for comparison. FINDINGS: Evaluation of the pulmonary arterial system is without evidence of thromboembolism. No filling defects are seen within central, lobar, or segmental branches. The thoracic aorta has normal caliber. There is no dissection. No pericardial or pleural fluid is identified. There are areas of subsegmental atelectasis in the lingula and bilateral lower lobes. The upper abdomen does show hepatic steatosis. No other significant abnormality is seen. IMPRESSION: 1. No evidence of pulmonary embolism or acute aortic disease. 2. Bibasilar subsegmental atelectasis. 3. Hepatic steatosis. Dictated on workstation # [id number] Dict: 05/09/22 1327 Trans: 05/09/22 1346 [id number] Interpreted by: CAROLYN TAYLOR MD Electronically signed by: Assessment/Plan Assessment/Plan Assess & Plan/Chief Complaint Assessment: This is a 67 y/o female who presented to the ED and was admitted for chest pain and admitted for probable PNA. Chest Pain ACS/cardiogenic vs pulmonary vs MSK origin Initially SIRS+ (tachycardia, WBC >12) Meets sepsis criteria Ddx includes: Nonspecific angina/ACS, pleurisy/pleuritis/costochondritis, PNA, pericarditis, PE, systemic sclerosis/scleroderma, giant cell arteritis/large vessel vasculitis -Initial CXR had concerns for PNA by admitting providers though negative report; repeat CXR is negative, area of concern no longer apparent; Has been on abx -Troponin x2 negative. BNP negative. -WBC 18.1 -->10.6; afebrile -ESR 36, CRP 18 -VSS - at baseline for HR in low 100s -Initial D-dimer negative, repeat 0.8; CTA negative for PE -ABG Hypoxia; respiratory alkalosis, uncompensated at 7.45/36/79/25 -Would suggest Asthma vs PE vs PNA vs COPD vs Pulm Fibrosis - CXR/CTA not suggestive of any of these processes -Pulm a. pressure 50-55mmHg -Wells Score of 6: (+3 for PE equally as likely as alternative dx prior to D- dimer/CTA, +3 for tachycardia); moderate PE risk; CTA negative. -Given workup this far, results tend to be more supportive of inflammatory process as underlying etiology -Pain with palpation at costochondral joints - more suggestive of costochondritis; keep dosing with NSAIDs -Will treat empirically for giant cell arteritis given patient's severe LARSEN/jaw pain/chest pain with high dose IV steroids. Headache/Migraine -PRNs ordered -Excedrin - pt reports this has helped before Neuropathy - undetermined etiology -Pt has scheduled epidural for pain management -Takes duloxetine, pramipexole for home meds; can continue GERD -Omeprazole at home -Continue Seasonal allergies -Montelukast at home; can continue Menopause s/p TLH -On estradiol 1mg daily, can continue Insomnia -Takes trazadone nightly -Cyclobenzaprine PRN -May continue FEN/GI -VSS, DC fluids today -Monitor/replace electrolytes PRN -Regular diet as tolerated -Bowel regimen PRN, continue home PPI DVT PPx: Lovenox, SCDs Disposition: Stable but patient still SOB on exertion with persistent chest pain with thus far unclear etiology; Most likely an inflammatory costochondritis/pleuritis but requires further workup inpatient as O2 needs increased overnight. Clinical Quality Measures Admission Status Admission Dx Vital Signs Date Time Temp Pulse Resp B/P (MAP) Pulse Ox O2 Delivery O2 Flow Rate FiO2 05/08/22 12:01 37.4 121 18 157/102 (120) 95 Radiology NAME: ZION RENDON REC#: [id number] PT STATUS: REG ER : 1955 PHYSICIAN: JULIÁN DSOUZA DO ADMIT DATE: 05/08/22/ER Signed Date of Exam:05/08/22 CHEST 1 VIEW, AP/PA ONLY INDICATION: Chest pain. TECHNIQUE: Frontal chest obtained at 12:18 p.m. FINDINGS: Heart and mediastinal silhouette are normal in appearance. The lungs are clear. There is no pneumothorax or pleural fluid. IMPRESSION: Negative chest. Dictated by: Dictated on workstation # [id number] Dict: 05/08/22 1244 Trans: 05/08/22 1324 AS6 [id number] Interpreted by: KELLY DUNAWAY MD Electronically signed by: KELLY DUNAWAY MD 05/08/22 1324 Assessment: This is a 67 y/o female who presented to the ED and was admitted for chest pain and admitted for probable PNA. Chest Pain ACS/cardiogenic vs pulmonary vs MSK origin SIRS+ (tachycardia, WBC >12) Meets sepsis criteria -CXR concerning for RLL/RML pneumonia on review, though report says negative CXR -Troponin, EKG negative, pain not characteristic of cardiac process -WBC of 18.1, afebrile -Recent possible sick contacts -VSS - tachycardic but somewhat chronic for this pt. Not requiring O2. Pain still present. -D-dimer negative -Will start rocephin and azithromycin to cover for PNA given clinical picture and continue to observe -Repeat CXR in AM to re-evaluate Neuropathy - undetermined etiology -Pt has scheduled epidural for pain management -Takes duloxetine, pramipexole for home meds; can continue GERD -Omeprazole at home -Continue Seasonal allergies -Montelukast at home; can continue Menopause s/p TLH -On estradiol 1mg daily, can continue Insomnia -Takes trazadone nightly -Cyclobenzaprine PRN -May continue FEN/GI -VSS, no fluids at this time as patient is hungry/drinking -Monitor/replace electrolytes PRN -Regular diet as tolerated -Bowel regimen PRN, continue home PPI DVT PPx: Lovenox, SCDs Disposition: Stable. Meets SIRS/Sepsis criteria. Will admit for observation and evaluate progression of patient's symptoms and trend labs. MANDA MARKS DO 05/10/22 0515: Supervisory-Addendum Brief Verification & Attestation Participated in pt care: history, MDM, physical Personally performed: exam, history, MDM, supervision of care Care discussed with: Medical Student Procedures: n/a Results interpretation: Verified all documentation Verification and Attestation of Medical Student E/M Service A medical student performed and documented this service in my presence. I reviewed and verified all information documented by the medical student and made modifications to such information, when appropriate. I personally performed the physical exam and medical decision making. Manda Marks, May 10, 2022,05:15 KRISTEL CAGLE May 09, 2022 14:13 MANDA MARKS DO May 10, 2022 05:15
[2022-05-09] MEDS: methylPREDNISolone 40 MG/ML (Solu-MEDROL) VIAL IV SCH ×2 (15:36→20:40)
[2022-05-09] MEDS: ENOXAPARIN 40 MG/0.4 ML (LOVENOX) SYR SC SCH (15:37)
[2022-05-09 16:06] VITALS: BP 141/64
[2022-05-09 19:56] VITALS: BP 125/60
[2022-05-09] MEDS: PRAMIPEXOLE 0.5 MG TAB (MIRAPEX) PO SCH (20:39)
[2022-05-09] MEDS: MONTELUKAST 10 MG (SINGULAIR) TAB PO SCH (20:40)
[2022-05-09] MEDS: DULoxetine 30 MG (CYMBALTA) CAP PO SCH (20:40)
[2022-05-09 23:41] VITALS: BP 134/72
[2022-05-10] VITALS (7 sets, daily range): BP systolic 124–146; BP diastolic 60–79
[2022-05-10 05:36] LABS: BASOPHILS % (AUTO) 0 % (0-10); EOSINOPHILS % (AUTO) 0 % (0-10); HEMATOCRIT 35 % (35-52); LYMPHOCYTES # (AUTO) 1.1 10^3/uL (1.0-4.0); LYMPHOCYTES % (AUTO) 13 % (12-44); MEAN CORPUSCULAR HEMOGLOBIN 30 pg (25-34); MEAN CORPUSCULAR HGB CONC 34 g/dL (32-36); MEAN CORPUSCULAR VOLUME 87 fL (80-99); MEAN PLATELET VOLUME 8.5 fL (9.0-12.2); MONOCYTES # (AUTO) 0.4 10^3/uL (0.0-1.0); MONOCYTES % (AUTO) 4 % (0-12); NEUTROPHILS # (AUTO) 7.1 10^3/uL (1.8-7.8); NEUTROPHILS % (AUTO) 80 % (42-75); PLATELET COUNT 333 10^3/uL (130-400); WHITE BLOOD COUNT 8.9 10^3/uL (4.3-11.0)
[2022-05-10 05:59] LABS: ALBUMIN 3.9 GM/DL (3.2-4.5); BILIRUBIN,TOTAL 0.2 MG/DL (0.1-1.0); CALCIUM 8.8 MG/DL (8.5-10.1); CREATININE SERUM 0.66 MG/DL (0.60-1.30); POTASSIUM 3.5 MMOL/L (3.6-5.0); TOTAL PROTEIN 7.1 GM/DL (6.4-8.2)
--- NOTE | 2022-05-10 06:25 | Progress Note ---
Subjective Date Seen by a Provider: May 10, 2022 Time Seen by a Provider: 11:30 Subjective/Events-last exam Doing better EST revealed no ischemia but only walked 4 minutes Pulmonology consult updated on the need for consult Updated patient and for 15 minutes in review of all results and explanations Review of Systems General: Fatigue, Malaise Pulmonary: Dyspnea Objective Exam Last Set of Vital Signs Vital Signs Date Time Temp Pulse Resp B/P (MAP) Pulse Ox O2 Delivery O2 Flow Rate FiO2 05/10/22 03:44 36.8 57 16 131/72 (91) 94 Nasal Cannula 2.00 Capillary Refill : Less Than 3 Seconds I&O Intake and Output 05/10/22 00:00 Intake Total 2160 ml Output Total 2150 ml Balance 10 ml Intake Oral 1160 ml IV Total 1000 ml Output Urine Total 2150 ml # Bowel Movements 7 General: Alert, Oriented X3, Cooperative, No Acute Distress Lungs: Clear to Auscultation, Normal Air Movement Heart: Regular Rate, Normal S1, Normal S2, No Murmurs Psych/Mental Status: Mental Status NL, Mood NL Results Lab Laboratory Tests 05/09/22 12:17: Blood Gas Puncture Site LEFT RAD, Blood Gas Patient Temperature 37.0, Arterial Blood pH 7.45H, Arterial Blood Partial Pressure CO2 36, Arterial Blood Partial Pressure O2 78L, Arterial Blood HCO3 25, Arterial Blood Total CO2 26.0, Arterial Blood Oxygen Saturation 98, Arterial Blood Base Excess 1.3, Luis Test YES-POS, Blood Gas Ventilator Setting NO, Blood Gas Inspired Oxygen 2 05/10/22 05:27: White Blood Count 8.9, Red Blood Count 4.06, Hemoglobin 12.0, Hematocrit 35, Mean Corpuscular Volume 87, Mean Corpuscular Hemoglobin 30, Mean Corpuscular Hemoglobin Concent 34, Red Cell Distribution Width 13.5, Platelet Count 333, Mean Platelet Volume 8.5L, Immature Granulocyte % (Auto) 2, Neutrophils (%) (Auto) 80H, Lymphocytes (%) (Auto) 13, Monocytes (%) (Auto) 4, Eosinophils (%) (Auto) 0, Basophils (%) (Auto) 0, Neutrophils # (Auto) 7.1, Lymphocytes # (Auto) 1.1, Monocytes # (Auto) 0.4, Eosinophils # (Auto) 0.0, Basophils # (Auto) 0.0, Immature Granulocyte # (Auto) 0.2H, Sodium Level 140, Potassium Level 3.5L, Chloride Level 105, Carbon Dioxide Level 20L, Anion Gap 15H, Blood Urea Nitrogen 10, Creatinine 0.66, Estimat Glomerular Filtration Rate 97, BUN/Creatinine Ratio 15, Glucose Level 165H, Calcium Level 8.8, Corrected Calcium 8.9, Total Bilirubin 0.2, Aspartate Amino Transf (AST/SGOT) 21, Alanine Aminotransferase (ALT/SGPT) 25, Alkaline Phosphatase 75, Total Protein 7.1, Albumin 3.9 Assessment/Plan Assessment/Plan Assess & Plan/Chief Complaint Assessment: Dyspnea Early PNA? PHTN Tricuspid regurg mod severe Suspected LORENE Asthma? Recent weight gain Recent COVID Volume overload? Plan: Inpatient Pulmo and Cards appreciated Home O2 evaluation Mobilize Per med student: Assessment: This is a 67 y/o female who presented to the ED and was admitted for chest pain and admitted for probable PNA. Chest Pain ACS/cardiogenic vs pulmonary vs MSK origin Initially SIRS+ (tachycardia, WBC >12) Meets sepsis criteria Ddx includes: Nonspecific angina/ACS, pleurisy/pleuritis/costochondritis, PNA, pericarditis, PE, systemic sclerosis/scleroderma, giant cell arteritis/large vessel vasculitis -Initial CXR had concerns for PNA by admitting providers though negative report; repeat CXR is negative, area of concern no longer apparent; Has been on abx -Troponin x2 negative. BNP negative. -WBC 18.1 -->10.6; afebrile -ESR 36, CRP 18 -VSS - at baseline for HR in low 100s -Initial D-dimer negative, repeat 0.8; CTA negative for PE -ABG Hypoxia; respiratory alkalosis, uncompensated at 7.45/36/79/25 -Would suggest Asthma vs PE vs PNA vs COPD vs Pulm Fibrosis - CXR/CTA not suggestive of any of these processes -Pulm a. pressure 50-55mmHg -Wells Score of 6: (+3 for PE equally as likely as alternative dx prior to D- dimer/CTA, +3 for tachycardia); moderate PE risk; CTA negative. -Given workup this far, results tend to be more supportive of inflammatory process as underlying etiology -Pain with palpation at costochondral joints - more suggestive of costochondritis; keep dosing with NSAIDs -Will treat empirically for giant cell arteritis given patient's severe LARSEN/jaw pain/chest pain with high dose IV steroids. Headache/Migraine -PRNs ordered -Excedrin - pt reports this has helped before Neuropathy - undetermined etiology -Pt has scheduled epidural for pain management -Takes duloxetine, pramipexole for home meds; can continue GERD -Omeprazole at home -Continue Seasonal allergies -Montelukast at home; can continue Menopause s/p TLH -On estradiol 1mg daily, can continue Insomnia -Takes trazadone nightly -Cyclobenzaprine PRN -May continue FEN/GI -VSS, DC fluids today -Monitor/replace electrolytes PRN -Regular diet as tolerated -Bowel regimen PRN, continue home PPI DVT PPx: Lovenox, SCDs Disposition: Stable but patient still SOB on exertion with persistent chest pain with thus far unclear etiology; Most likely an inflammatory costoc hondritis/pleuritis but requires further workup inpatient as O2 needs increased overnight. Clinical Quality Measures Admission Status Admission Dx Assessment: Early PNA Tachycardia Dehydration Chest pain no evidence of ACS or PE Plan: Admit IV abx IVF MILLICENT MARKS DO May 10, 2022 06:25
[2022-05-10] MEDS ORDERED: CATHETER FLUSH 10 ML SYR IVP PRN (06:45)
[2022-05-10] MEDS: SENNOSIDES 8.6 MG (SENOKOT) TAB PO SCH ×2 (10:33→20:03)
[2022-05-10] MEDS: AZITHROMYCIN 250 MG TAB (ZITHROMAX) PO SCH (10:33)
[2022-05-10] MEDS: DOCUSATE SODIUM 100 MG (COLACE) CAP PO SCH ×2 (10:34→20:03)
[2022-05-10] MEDS: methylPREDNISolone 40 MG/ML (Solu-MEDROL) VIAL IV SCH ×2 (10:34→20:03)
[2022-05-10] MEDS: cefTRIAXone 1 GM PRE-MIX 50 ML IV SCH (10:37)
--- NOTE | 2022-05-10 11:18 | Cardiology Stress Test Report ---
Stress Test Report Date of Procedure/Referring: Date of Procedure: May 10, 2022 PCP Manda Pearson DO Admitting Physician Admitting Physician: Manda Pearson DO Attending Physician: Manda Pearson DO Indications: Dyspnea Baseline Heart Rate: 96 Baseline Blood Pressure: Blood Pressure Systolic: 136 Blood Pressure Diastolic: 79 Vital Signs Date Time Temp Pulse Resp B/P (MAP) Pulse Ox O2 Delivery O2 Flow Rate FiO2 05/08/22 12:01 37.4 121 18 157/102 (120) 95 05/08/22 15:00 Room Air 05/08/22 23:50 2.00 Baseline Vital Signs Vital Signs Date Time Temp Pulse Resp B/P (MAP) Pulse Ox O2 Delivery O2 Flow Rate FiO2 05/08/22 12:01 37.4 121 18 157/102 (120) 95 05/08/22 15:00 Room Air 05/08/22 23:50 2.00 Baseline EKG: Baseline EKG: NSR Summary: After explaining the procedure and details to the patient, she signed the consent and was brought to the stress nuclear laboratory. Patient exercised on standard Cosmo protocol, EKG, heart rate and blood pressure were monitored continuously, resting and stress doses of radio tracer were injected, imaging was acquired and reviewed in the short axis, horizontal long axis and vertical long axis views Patient was able to exercise for a total of 4 minutes on Cosmo protocol, METs 5.8 Maximum heart rate 140 Maximum blood pressure 188/56 Stress EKG, Minimal nondiagnostic changes Recovery EKG, Return to baseline TID: 0.95 SSS: 1 SDS: 1 EF: 70 Conclusion: Poor exercise tolerance for a total of 4 minutes on standard Cosmo protocol, 5.8 METS achieving 90% of maximum expected heart rate Patient was visibly short of breath during stress test after minute 2 of exercise, oxygen saturation started at 94% and did not drop below 90% during test Hypertensive response to exercise with peak blood pressure 188/56 return to baseline during recovery Nondiagnostic EKG changes with exercise return to baseline during recovery No significant ischemia or infarction noted on SPECT images Normal left ventricular size, ejection fraction 70% SYLVIA CHÁVEZ MD May 10, 2022 11:18
[2022-05-10] MEDS ORDERED: FUROSEMIDE 40 MG/4 ML INJ (LASIX) IVP NR (13:00)
--- NOTE | 2022-05-10 13:31 | Pulmonary Consultation ---
History of Present Illness History of Present Illness Date Seen by Provider: May 10, 2022 Time Seen by Provider: 13:28 Date of Admission (Tele-pulmonary Physician , consultation as per request of PCP Service provided via interactive audio and video telecommunications [email or web address] system to a patient admitted to [facility]. Dyspnea ( patient does not c/o dyspnea : reports walking 30 min for exercise , but also reports "frustrations with getting very tired and short of breath after 15 min cleaning house + using stars, and need to frequently sit down and get rest " ) - can be due to decondition vs bronchospasm vs pulm HTN ( or all ) - r/o angina as per cards Perennial/persistent allergic rhinitis with PND - + PND - possible asthma as comorbidity LORENE , suspected - snoring with recent weight gain - PND + GERD PULM HTN , RVSP 50 mmhg on ECHO - etiology not clear , can be multifactorial - ? LORENE - ? chronic nocturnal hypoxia with bronchospasm . ALL rhinitis , obesity Suggestion - after finish current TX , to address as outpatient - aggressive tx rhinitis - check IgE ( off steroid - PFT / peak flow monitor -PGS , ant Tx of LORENE if present - when all above TX/ addressed , recheck ECHO , and if RVSP is still elevated , do additional investigations , as VQ/ , right cath ect Discussed with patient the medical regiment after discharge, goals, side e ffects and symptoms. All questions were answered. Plans in collaboration with bedside consultants and IM MDs. Reason for Visit: Chest pain Allergies and Home Medications Allergies Coded Allergies: Penicillins (Unverified Adverse Reaction, Intermediate, rash, dyspnea, 04/27/18) Home Medications Cyanocobalamin (Vitamin B-12) 1,000 Mcg Tablet, 1,000 MCG PO DAILY, (Reported) Cyclobenzaprine HCl 10 Mg Tablet, 10 MG PO HS, (Reported) Duloxetine HCl 60 Mg Capsule.dr, 120 MG PO HS, (Reported) TAKES 2 (60MG) CAPS Estradiol 1 Mg Tablet, 1 MG PO DAILY, (Reported) Ferrous Sulfate 220 Mg (44 Mg Iron)/5 Ml Elixir, 5 ML PO 1300, (Reported) Fluticasone Propionate 50 Mcg/Actuation Lillian.susp, 1 SPRAY NSEACH DAILY, (Reported) Magnesium Oxide 400 Mg Magnesium Tablet, 400 MG PO HS, (Reported) Melatonin 10 Mg Capsule, 10 MG PO HS, (Reported) Montelukast Sodium 10 Mg Tablet, 10 MG PO DAILY, (Reported) LAST FILLED 03-10-2022 #30/30 DAY SUPPLY Multivit-Min/FA/Lycopene/Lut 1 Each Tablet, 1 EACH PO DAILY, (Reported) Omeprazole 20 Mg Capsule.dr, 20 MG PO DAILY, (Reported) Oxybutynin Chloride 5 Mg Tablet, 5 MG PO BID, (Reported) Pramipexole Di-HCl 1 Mg Tablet, 1 MG PO HS, (Reported) Trazodone HCl 150 Mg Tablet, 75 MG PO HS, (Reported) TAKES OF A 150MG Past Medical/Social/Family Hx Patient Social History Marrital Status: Employed/Student: retired Tobacco Use?: No Smoking Status: Never a Smoker Smokeless Tobacco Frequency: Never a User E-Cig and/or Vaping Freq: Never a User Substance use?: Yes Substance type: Caffeine Substance frequency: Daily Alcohol Use?: Yes Alcohol type: Hard Liquor, Wine Alcohol Frequency: Once in a while Pt stated abuse/neglect: No Immunizations Up To Date Influenza Vaccine Up-to-Date: Yes; Up-to-Date Tetanus Booster (TDap): Unknown Current Status status: No status: No Advance Directives: No Communicates: Verbally Primary Language: Italian Preferred Spoken Language: Italian Is interpretation needed?: No Sensory deficits: Vision impairment, Hearing impairment Implanted or Applied Medical D: Orthopedic hardware, Pacemaker Review of Systems Constitutional: other Sepsis Event Evaluation Height, Weight, BMI Height: 5'4.00" Weight: 165lbs. 0.0oz. [id number]; 32.36 BMI Method:Stated Exam Exam Patient acknowledged, consented, and participated in this virtual visit which was conducted using real time audio/video Vital Signs Date Time Temp Pulse Resp B/P (MAP) Pulse Ox O2 Delivery O2 Flow Rate FiO2 05/10/22 12:03 36.4 89 18 124/72 (89) 94 Nasal Cannula 2.00 05/10/22 08:37 96 136/79 (98) 05/10/22 08:18 36.8 98 18 130/77 (94) 93 Room Air 05/10/22 08:00 94 Nasal Cannula 2.00 05/10/22 07:00 104 05/10/22 03:44 36.8 57 16 131/72 (91) 94 Nasal Cannula 2.00 05/10/22 01:00 100 05/09/22 23:41 36.7 97 16 134/72 (92) 95 Nasal Cannula 2.00 05/09/22 21:45 Nasal Cannula 2.00 05/09/22 20:00 Room Air 05/09/22 19:56 36.7 101 20 125/60 (81) 94 Room Air 05/09/22 19:00 102 05/09/22 16:06 37.4 103 20 141/64 (89) 94 Nasal Cannula 2.00 I & O 05/10/22 06:59 Intake Total 960 ml Output Total 2900 ml Balance -1940 ml Height & Weight Height: 5'4.00" Weight: 165lbs. 0.0oz. [id number]; 32.36 BMI Method:Stated General Appearance: No Apparent Distress, WD/WN, Chronically ill, Other HEENT: PERRL/EOMI, Pharynx Normal Neck: Normal Inspection, Non Tender, Supple Respiratory: Lungs Clear, Normal Breath Sounds Cardiovascular: Tachycardia Capillary Refill: Less Than 3 Seconds Extremity: Normal Inspection, No Pedal Edema Neurologic/Psychiatric: Alert, Oriented x3, Normal Mood/Affect Skin: Normal Color, Warm/Dry Lymphatic: No Adenopathy Results Lab Laboratory Tests 05/09/22 05:16 05/10/22 05:27 Assessment/Plan Assessment/Plan 1 RISSA PARSONS MD May 10, 2022 13:31
--- NOTE | 2022-05-10 13:56 | Physical Therapy Evaluation ---
PT Evaluation-General Medical Diagnosis Admission Date May 10, 2022 at 06:30 Medical Diagnosis: pneumonia Onset Date: May 10, 2022 Therapy Diagnosis Therapy Diagnosis: decreased pulmonary function Height/Weight Height (Feet): 5 Height (Inches): 4.00 Weight (Pounds): 165 Weight (Ounces): 0.0 Precautions Precautions/Isolations: Standard Precautions Weight Bear Status Right Lower Extremity: Right Weight Bearing/Tolerated Weight Bearing/Tolerated Referral Physician: Lili Reason for Referral: Evaluation/Treatment Medical History Pertinent Medical History: HTN, Neuropathy Current History ER secondary to CP Reviewed History: Yes Social History Home: Single Level Current Living Status: Spouse Prior Prior Level of Function SCALE: Activities may be completed with or without assistive devices. 6-Fzfatvarnr-fgynmpx completes the activity by him/herself with no assistance from a helper. 5-Set-up or Clean-up Assistance-helper sets up or cleans up; patient completes activity. [place] assists only prior to or following the activity. 4-Supervision or Touching Assistance-helper provides verbal cues and/or touching/steadying and/or contact guard assistance as patient completes activity. Assistance may be provided throughout the activity or intermittently. 3-Partial/Moderate Assistance-helper does LESS THAN HALF the effort. [place] lifts, holds or supports trunk or limbs, but provides less than half the effort. 2-Substantial/Maximal Assistance-helper does MORE THAN HALF the effort. [place] lifts or holds trunk or limbs and provides more than half the effort. 5-Atqenttvp-xhxcju does ALL the effort. Patient does none of the effort to complete the activity. Or, the assistance of 2 or more helpers is required for the patient to complete the activity. If activity was not attempted, code reason: 7-Patient Refused. 9-Not Applicable-not attempted and the patient did not perform the activity before the current illness, exacerbation or injury. 10-Not Attempted due to Environmental Limitations-(lack of equipment, weather restraints, etc.). 88-Not Attempted due to Medical Conditions or Safety Concerns. Bed Mobility: 6 Transfers (B,C,W/C): 6 Gait: 6 Stairs: 6 Indoor Mobility (Ambulation): Independent Stairs: Independent Prior Devices Use: None PT Evaluation-Current Subjective Patient agrees to PT, with RT, for ambulation to determine O2 need. Pain Numeric Pain Scale: 0-No Pain Location: No Pain Reported Objective Patient Orientation: Normal For Age ROM/Strength ROM Lower Extremities bilateral LE WFL Strength Lower Extremities 5/5 grossly bilateral LE all planes Integumentary/Posture Bowel Incontinence: No Bladder Incontinence: No Posture WFL Neuromuscular (Tone, Coordination, Reflexes) grossly intact Sensory Vision: Wears Glasses Hearing: Hearing Aid/Aides Sensation Right Lower Extremit: Impaired Sensation Left Lower Extremity: Impaired Transfers Sit to Lying (QC): 6 Lying to Sitting/Side of Bed(Q: 6 Sit to Stand (QC): 6 Gait Mode of Locomotion: Walk Anticipated Mode of Locomotion: Walk Walk 10 feet (QC): 6 Walk 50 ft with 2 Turns(QC): 6 Walk 150 ft (QC): 6 Distance: >800' Gait Assistive Device: None Comments/Gait Description safe and functional with no deviation or SOA RA Balance Sitting Static: Normal Sitting Dynamic: Normal Standing Static: Normal Standing Dynamic: Normal Treatment Patient taken off O2 with SAO2 94% RA. After ambulating >800', SAO2, RA 95%. RT determined patient does not require O2. RN notified. Assessment/Needs Patient is currently independent with all gross motor skills safely and does not require skilled PT intervention at this time. Patient educated on increasing ambulation in hallway and using incentive spirometer to improve pulmonary function. Patient voices understanding. Rehab Potential: Good PT Plan Treatment/Plan Treatment Plan: Discontinue PT Treatment Duration: May 10, 2022 Frequency: 1 time per week Estimated Hrs Per Day: .25 hour per day Patient and/or Family Agrees t: Yes Time Time In: 1335 Time Out: 1347 DATE: May 10, 2022 Total Billed Treatment Time: 12 Total Billed Treatment [address] [facility] 12 min NICOLE EATON PT May 10, 2022 13:56
[2022-05-10] MEDS: ENOXAPARIN 40 MG/0.4 ML (LOVENOX) SYR SC SCH (16:54)
[2022-05-10] MEDS: DULoxetine 30 MG (CYMBALTA) CAP PO SCH (20:04)
[2022-05-10] MEDS: PRAMIPEXOLE 0.5 MG TAB (MIRAPEX) PO SCH (20:04)
[2022-05-10] MEDS: MONTELUKAST 10 MG (SINGULAIR) TAB PO SCH (20:04)
[2022-05-11 03:54] VITALS: BP 123/73
[2022-05-11 05:18] LABS: BASOPHILS % (AUTO) 0 % (0-10); EOSINOPHILS % (AUTO) 0 % (0-10); HEMATOCRIT 33 % (35-52); HEMOGLOBIN 11.1 g/dL (11.5-16.0); LYMPHOCYTES # (AUTO) 1.4 10^3/uL (1.0-4.0); LYMPHOCYTES % (AUTO) 11 % (12-44); MEAN CORPUSCULAR HEMOGLOBIN 29 pg (25-34); MEAN CORPUSCULAR HGB CONC 34 g/dL (32-36); MEAN CORPUSCULAR VOLUME 86 fL (80-99); MEAN PLATELET VOLUME 8.6 fL (9.0-12.2); MONOCYTES # (AUTO) 0.9 10^3/uL (0.0-1.0); MONOCYTES % (AUTO) 7 % (0-12); NEUTROPHILS # (AUTO) 10.1 10^3/uL (1.8-7.8); NEUTROPHILS % (AUTO) 80 % (42-75); PLATELET COUNT 364 10^3/uL (130-400); WHITE BLOOD COUNT 12.5 10^3/uL (4.3-11.0)
[2022-05-11 05:32] LABS: ALBUMIN 3.9 GM/DL (3.2-4.5)
[2022-05-11 05:33] LABS: POTASSIUM 3.3 MMOL/L (3.6-5.0)
[2022-05-11 05:34] LABS: CALCIUM 8.6 MG/DL (8.5-10.1)
[2022-05-11 05:35] LABS: TOTAL PROTEIN 6.8 GM/DL (6.4-8.2)
[2022-05-11 05:37] LABS: BILIRUBIN,TOTAL 0.2 MG/DL (0.1-1.0)
[2022-05-11 05:39] LABS: CREATININE SERUM 0.67 MG/DL (0.60-1.30)
[2022-05-11 07:55] VITALS: BP 138/70
[2022-05-11] MEDS: methylPREDNISolone 40 MG/ML (Solu-MEDROL) VIAL IV SCH (08:28)
[2022-05-11] MEDS: AZITHROMYCIN 250 MG TAB (ZITHROMAX) PO SCH (08:28)
[2022-05-11] MEDS: SENNOSIDES 8.6 MG (SENOKOT) TAB PO SCH (08:28)
[2022-05-11] MEDS: cefTRIAXone 1 GM PRE-MIX 50 ML IV SCH (08:28)
[2022-05-11] MEDS: DOCUSATE SODIUM 100 MG (COLACE) CAP PO SCH (08:28)
--- NOTE | 2022-05-11 11:20 | Cardiology Progress Note ---
Subjective Date Seen by Provider: May 10, 2022 Time Seen by Provider: 11:18 Subjective/Events-last exam Patient was seen at the stress lab. This is a late entry progress note Review of Systems General: No Chills, No Night Sweats, No Fatigue, No Malaise, No Appetite, No Other HEENT: No Head Aches, No Visual Changes, No Eye Pain, No Ear Pain, No Dysphasia, No Sinus Congestion, No Post Nasal Drip, No Sore Throat, No Other Pulmonary: No Dyspnea, No Cough, No Pleuritic Chest Pain, No Other Cardiovascular: No: Chest Pain, Palpitations, Orthopnea, Paroxysmal Noc. Dyspnea, Edema, Lt Headedness, Other Objective-Cardiology Exam Last Set of Vital Signs Vital Signs 05/10/22 05/11/22 05/11/22 12:03 07:55 10:27 Temp 36.3 Pulse 90 Resp 18 B/P (MAP) 138/70 (92) Pulse Ox 95 O2 Delivery Room Air O2 Flow Rate 2.00 I&O Intake and Output 05/11/22 00:00 Intake Total 1090 ml Output Total 2000 ml Balance -910 ml Intake Oral 1090 ml Output Urine Total 2000 ml # Voids 1 # Bowel Movements 1 General: Alert, Oriented X3, Cooperative, No Acute Distress HEENT: Atraumatic, PERRLA, EOMI, Other (Denies any vision changes. Headache in frontal/parietal/occipital areas wrapping from front to back. Spares temporal area.) Neck: Supple, No JVD Lungs: Clear to Auscultation, Normal Air Movement Heart: Regular Rate, Normal S1, Normal S2, No Murmurs Abdomen: Normal Bowel Sounds, Soft Extremities: No Clubbing, No Edema, Normal Pulses, No Tenderness/Swelling Skin: No Rashes Psych/Mental Status: Mental Status NL, Mood NL Results Lab Laboratory Tests 05/11/22 05:10 A/P-Cardiology Admission Diagnosis Chest pain Shortness of breath Palpitation Tachycardia Assessment/Plan Chest pain nonspecific etiology associated with shortness of breath Resembling angina. EKG and first troponin set was normal. Exercise stress test was done on May 10, 2022 with poor exercise tolerance for a total of 4 minutes on standard Cosmo protocol, patient was visibly short of breath after walking only for 2 minutes, oxygen saturation stayed above 90%, no ischemia or infarction noted on SPECT images with normal left ventricular function Continue with conservative management. Severe pulmonary hypertension noted on 2D echocardiogram with PA pressure 50 to 55%, moderate to severe tricuspid regurgitation Unknown etiology, otherwise heart function were normal. Could be secondary to primary pulmonary hypertension Mild dyspnea on exertion, elevated CRP Chest x-ray did not show any acute abnormality. 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
--- NOTE | 2022-05-11 11:22 | Cardiology Progress Note ---
Subjective Date Seen by Provider: May 11, 2022 Time Seen by Provider: 11:20 Subjective/Events-last exam Patient was seen at bedside, laying down comfortably Asking about going home Reporting improvement in her dyspnea Review of Systems General: No Chills, No Night Sweats, No Fatigue, No Malaise, No Appetite, No Other HEENT: No Head Aches, No Visual Changes, No Eye Pain, No Ear Pain, No Dysphasia, No Sinus Congestion, No Post Nasal Drip, No Sore Throat, No Other Pulmonary: No Dyspnea, No Cough, No Pleuritic Chest Pain, No Other Cardiovascular: No: Chest Pain, Palpitations, Orthopnea, Paroxysmal Noc. Dyspnea, Edema, Lt Headedness, Other Objective-Cardiology Exam Last Set of Vital Signs Vital Signs 05/10/22 05/11/22 05/11/22 12:03 07:55 10:27 Temp 36.3 Pulse 90 Resp 18 B/P (MAP) 138/70 (92) Pulse Ox 95 O2 Delivery Room Air O2 Flow Rate 2.00 I&O Intake and Output 05/11/22 00:00 Intake Total 1090 ml Output Total 2000 ml Balance -910 ml Intake Oral 1090 ml Output Urine Total 2000 ml # Voids 1 # Bowel Movements 1 General: Alert, Oriented X3, Cooperative, No Acute Distress HEENT: Atraumatic, PERRLA, EOMI, Other (Denies any vision changes. Headache in frontal/parietal/occipital areas wrapping from front to back. Spares temporal area.) Neck: Supple, No JVD Lungs: Clear to Auscultation, Normal Air Movement Heart: Regular Rate, Normal S1, Normal S2, No Murmurs Abdomen: Normal Bowel Sounds, Soft Extremities: No Clubbing, No Edema, Normal Pulses, No Tenderness/Swelling Skin: No Rashes Psych/Mental Status: Mental Status NL, Mood NL Results Lab Laboratory Tests 05/11/22 05:10 A/P-Cardiology Admission Diagnosis Chest pain Shortness of breath Palpitation Tachycardia Assessment/Plan Chest pain nonspecific etiology associated with shortness of breath Resembling angina. EKG and first troponin set was normal. Exercise stress test was done on May 10, 2022 with poor exercise tolerance for a total of 4 minutes on standard Cosmo protocol, patient was visibly short of breath after walking only for 2 minutes, oxygen saturation stayed above 90%, no ischemia or infarction noted on SPECT images with normal left ventricular function Continue with conservative management. Severe pulmonary hypertension noted on 2D echocardiogram with PA pressure 50 to 55 millimeters of mercury, moderate to severe tricuspid regurgitation, mild to moderate mitral regurgitation Unknown etiology, otherwise heart function were normal. Could be secondary to primary pulmonary hypertension, recommend evaluating pulmonary function test and spiral CT as an outpatient Referral for pulmonary evaluation for pulmonary hypertension is recommended as an outpatient Mild dyspnea on exertion, elevated CRP Chest x-ray did not show any acute abnormality. 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
[2022-05-11] MEDS ORDERED: KCL 20 MEQ TAB (K-DUR) PO NR (11:45)
[2022-05-11 11:49] VITALS: BP 145/81
[2022-05-11] MEDS ORDERED: POTA-177 PO (12:06)
[2022-05-11] MEDS ORDERED: PRD20T PO (12:06)
[2022-05-11] MEDS ORDERED: FURO-124 PO (12:06)
--- NOTE | 2022-05-11 12:06 | Discharge Summary ---
Diagnosis/Chief Complaint Date of Admission May 10, 2022 at 06:30 Date of Discharge Discharge Date: May 11, 2022 Discharge Diagnosis Acute hypoxic respiratory failure Dyspnea Chest pain Hypoxia requiring O2 Moderate-severe tricupsid regurg Pulmonary HTN Poor exercise intolerance Past h/o COVID Recent weight gain Suspected LORENE Acute bronchospasm Discharge Summary Discharge Physical Examination Allergies: Coded Allergies: Penicillins (Unverified Adverse Reaction, Intermediate, rash, dyspnea, 04/27/18) Vitals & I&Os Vital Signs Date Time Temp Pulse Resp B/P (MAP) Pulse Ox O2 Delivery O2 Flow Rate FiO2 05/11/22 12:54 36.3 81 18 145/81 95 Room Air 05/10/22 12:03 2.00 General Appearance: Alert, Oriented X3, Cooperative Respiratory: Clear to Auscultation Cardiovascular: Regular Rate Neuro: Normal Gait, Normal Speech, Strength at 5/5 X4 Ext Psych/Mental Status: Mental Status NL Hospital Course Was the Problem List Reviewed?: Yes Lengthy course after she was admitted for dyspnea and chest pain and thought to have early PNA with CT chest did confirm ATX of lower lobes. Dr Salmeron consulted after ECHO revealed mod-severe TR and pulmonary HTN. Suspected LORENE was discussed and Pulmonology assessed her to agree with etiology. Dr Salmeron will see her in close f/u and arrange consultation for valve repair and I will see her in office and arrange Dr oKo for sleep study and she was DC in improved condition with short course of steroid taper and Lasix with K+. Labs (last 24 hrs) Laboratory Tests 05/08/22 12:04: White Blood Count 18.4H, Red Blood Count 4.10, Hemoglobin 12.1, Hematocrit 36, Mean Corpuscular Volume 87, Mean Corpuscular Hemoglobin 30, Mean Corpuscular Hemoglobin Concent 34, Red Cell Distribution Width 13.6, Platelet Count 364, Mean Platelet Volume 8.4L, Immature Granulocyte % (Auto) 1, Neutrophils (%) (Auto) 79H, Lymphocytes (%) (Auto) 13, Monocytes (%) (Auto) 7, Eosinophils (%) (Auto) 0, Basophils (%) (Auto) 0, Neutrophils # (Auto) 14.6H, Lymphocytes # (Auto) 2.3, Monocytes # (Auto) 1.3H, Eosinophils # (Auto) 0.1, Basophils # (Auto) 0.1, Immature Granulocyte # (Auto) 0.1, Neutrophils % (Manual) 81, Lymphocytes % (Manual) 13, Monocytes % (Manual) 6, Blood Morphology Comment NORMAL, D-Dimer 0.47, Sodium Level 139, Potassium Level 3.8, Chloride Level 103, Carbon Dioxide Level 24, Anion Gap 12, Blood Urea Nitrogen 15, Creatinine 0.71, Estimat Glomerular Filtration Rate 94, BUN/Creatinine Ratio 21, Glucose Level 124H, Calcium Level 9.6, Corrected Calcium 9.2, Magnesium Level 1.6, Total Bilirubin 0.3, Aspartate Amino Transf (AST/SGOT) 16, Alanine Aminotransferase (ALT/SGPT) 26, Alkaline Phosphatase 77, Troponin I < 0.028, Total Protein 7.7, Albumin 4.5, Lipase 14 05/08/22 12:20: Influenza Type A (RT-PCR) Not Detected, Influenza Type B (RT-PCR) Not Detected, SARS-CoV-2 RNA (RT-PCR) Not Detected 05/09/22 05:16: White Blood Count 10.6, Red Blood Count 3.62L, Hemoglobin 10.6L, Hematocrit 32L, Mean Corpuscular Volume 88, Mean Corpuscular Hemoglobin 29, Mean Corpuscular He moglobin Concent 33, Red Cell Distribution Width 13.9, Platelet Count 312, Mean Platelet Volume 8.6L, Immature Granulocyte % (Auto) 1, Neutrophils (%) (Auto) 72, Lymphocytes (%) (Auto) 16, Monocytes (%) (Auto) 10, Eosinophils (%) (Auto) 1, Basophils (%) (Auto) 0, Neutrophils # (Auto) 7.6, Lymphocytes # (Auto) 1.7, Monocytes # (Auto) 1.1H, Eosinophils # (Auto) 0.1, Basophils # (Auto) 0.0, Immature Granulocyte # (Auto) 0.1, D-Dimer 0.80H, Sodium Level 137, Potassium Level 3.4L, Chloride Level 104, Carbon Dioxide Level 22, Anion Gap 11, Blood Urea Nitrogen 11, Creatinine 0.69, Estimat Glomerular Filtration Rate 96, BUN/Creatinine Ratio 16, Glucose Level 121H, Calcium Level 8.3L, Corrected Calcium 8.5, Total Bilirubin 0.5, Aspartate Amino Transf (AST/SGOT) 14, Alanine Aminotransferase (ALT/SGPT) 21, Alkaline Phosphatase 72, Troponin I < 0.028, Total Protein 6.7, Albumin 3.8, Erythrocyte Sedimentation Rate 36H, C-Reactive Protein High Sensitivity 18.28H, B-Type Natriuretic Peptide 75.4 05/09/22 12:17: Blood Gas Puncture Site LEFT RAD, Blood Gas Patient Temperature 37.0, Arterial Blood pH 7.45H, Arterial Blood Partial Pressure CO2 36, Arterial Blood Partial Pressure O2 78L, Arterial Blood HCO3 25, Arterial Blood Total CO2 26.0, Arterial Blood Oxygen Saturation 98, Arterial Blood Base Excess 1.3, Luis Test YES-POS, Blood Gas Ventilator Setting NO, Blood Gas Inspired Oxygen 2 05/10/22 05:27: White Blood Count 8.9, Red Blood Count 4.06, Hemoglobin 12.0, Hematocrit 35, Mean Corpuscular Volume 87, Mean Corpuscular Hemoglobin 30, Mean Corpuscular Hemoglobin Concent 34, Red Cell Distribution Width 13.5, Platelet Count 333, Mean Platelet Volume 8.5L, Immature Granulocyte % (Auto) 2, Neutrophils (%) (Auto) 80H, Lymphocytes (%) (Auto) 13, Monocytes (%) (Auto) 4, Eosinophils (%) (Auto) 0, Basophils (%) (Auto) 0, Neutrophils # (Auto) 7.1, Lymphocytes # (Auto) 1.1, Monocytes # (Auto) 0.4, Eosinophils # (Auto) 0.0, Basophils # (Auto) 0.0, Immature Granulocyte # (Auto) 0.2H, Sodium Level 140, Potassium Level 3.5L, Chloride Level 105, Carbon Dioxide Level 20L, Anion Gap 15H, Blood Urea Nitrogen 10, Creatinine 0.66, Estimat Glomerular Filtration Rate 97, BUN/Creatinine Ratio 15, Glucose Level 165H, Calcium Level 8.8, Corrected Calcium 8.9, Total Bilirubin 0.2, Aspartate Amino Transf (AST/SGOT) 21, Alanine Aminotransferase (ALT/SGPT) 25, Alkaline Phosphatase 75, Total Protein 7.1, Albumin 3.9 05/11/22 05:10: White Blood Count 12.5H, Red Blood Count 3.82, Hemoglobin 11.1L, Hematocrit 33L, Mean Corpuscular Volume 86, Mean Corpuscular Hemoglobin 29, Mean Corpuscular Hemoglobin Concent 34, Red Cell Distribution Width 13.7, Platelet Count 364, Mean Platelet Volume 8.6L, Immature Granulocyte % (Auto) 1, Neutrophils (%) (Auto) 80H, Lymphocytes (%) (Auto) 11L, Monocytes (%) (Auto) 7, Eosinophils (%) (Auto) 0, Basophils (%) (Auto) 0, Neutrophils # (Auto) 10.1H, Lymphocytes # (Auto) 1.4, Monocytes # (Auto) 0.9, Eosinophils # (Auto) 0.0, Basophils # (Auto) 0.0, Immature Granulocyte # (Auto) 0.1, Sodium Level 140, Potassium Level 3.3L, Chloride Level 105, Carbon Dioxide Level 23, Anion Gap 12, Blood Urea Nitrogen 14, Creatinine 0.67, Estimat Glomerular Filtration Rate 96, BUN/Creatinine Ratio 21, Glucose Level 134H, Calcium Level 8.6, Corrected Calcium 8.7, Total Bilirubin 0.2, Aspartate Amino Transf (AST/SGOT) 20, Alanine Aminotransferase (ALT/SGPT) 27, Alkaline Phosphatase 66, Total Protein 6.8, Albumin 3.9 Pending Labs Laboratory Tests 05/08/22 12:04: White Blood Count 18.4, Red Blood Count 4.10, Hemoglobin 12.1, Hematocrit 36, Mean Corpuscular Volume 87, Mean Corpuscular Hemoglobin 30, Mean Corpuscular Hemoglobin Concent 34, Red Cell Distribution Width 13.6, Platelet Count 364, Mean Platelet Volume 8.4, Immature Granulocyte % (Auto) 1, Neutrophils (%) (Auto) 79, Lymphocytes (%) (Auto) 13, Monocytes (%) (Auto) 7, Eosinophils (%) (Auto) 0, Basophils (%) (Auto) 0, Neutrophils # (Auto) 14.6, Lymphocytes # (Auto) 2.3, Monocytes # (Auto) 1.3, Eosinophils # (Auto) 0.1, Basophils # (Auto) 0.1, Immature Granulocyte # (Auto) 0.1, Neutrophils % (Manual) 81, Lymphocytes % (Manual) 13, Monocytes % (Manual) 6, Blood Morphology Comment NORMAL, D-Dimer 0.47, Sodium Level 139, Potassium Level 3.8, Chloride Level 103, Carbon Dioxide Level 24, Anion Gap 12, Blood Urea Nitrogen 15, Creatinine 0.71, Estimat Glomerular Filtration Rate 94, BUN/Creatinine Ratio 21, Glucose Level 124, Calcium Level 9.6, Corrected Calcium 9.2, Magnesium Level 1.6, Total Bilirubin 0.3, Aspartate Amino Transf (AST/SGOT) 16, Alanine Aminotransferase (ALT/SGPT) 26, Alkaline Phosphatase 77, Troponin I < 0.028, Total Protein 7.7, Albumin 4.5, Lipase 14 05/08/22 12:20: Influenza Type A (RT-PCR) Not Detected, Influenza Type B (RT-PCR) Not Detected, SARS-CoV-2 RNA (RT-PCR) Not Detected 05/09/22 05:16: White Blood Count 10.6, Red Blood Count 3.62, Hemoglobin 10.6, Hematocrit 32, Mean Corpuscular Volume 88, Mean Corpuscular Hemoglobin 29, Mean Corpuscular Hemoglobin Concent 33, Red Cell Distribution Width 13.9, Platelet Count 312, Mean Platelet Volume 8.6, Immature Granulocyte % (Auto) 1, Neutrophils (%) (Auto) 72, Lymphocytes (%) (Auto) 16, Monocytes (%) (Auto) 10, Eosinophils (%) (Auto) 1, Basophils (%) (Auto) 0, Neutrophils # (Auto) 7.6, Lymphocytes # (Auto) 1.7, Monocytes # (Auto) 1.1, Eosinophils # (Auto) 0.1, Basophils # (Auto) 0.0, Immature Granulocyte # (Auto) 0.1, D-Dimer 0.80, Sodium Level 137, Potassium Level 3.4, Chloride Level 104, Carbon Dioxide Level 22, Anion Gap 11, Blood Urea Nitrogen 11, Creatinine 0.69, Estimat Glomerular Filtration Rate 96, BUN/Creatinine Ratio 16, Glucose Level 121, Calcium Level 8.3, Corrected Calcium 8.5, Total Bilirubin 0.5, Aspartate Amino Transf (AST/SGOT) 14, Alanine Aminotransferase (ALT/SGPT) 21, Alkaline Phosphatase 72, Troponin I < 0.028, Total Protein 6.7, Albumin 3.8, Erythrocyte Sedimentation Rate 36, C-Reactive Protein High Sensitivity 18.28, B-Type Natriuretic Peptide 75.4 05/09/22 12:17: Blood Gas Puncture Site LEFT RAD, Blood Gas Patient Temperature 37.0, Arterial Blood pH 7.45, Arterial Blood Partial Pressure CO2 36, Arterial Blood Partial Pressure O2 78, Arterial Blood HCO3 25, Arterial Blood Total CO2 26.0, Arterial Blood Oxygen Saturation 98, Arterial Blood Base Excess 1.3, Luis Test YES-POS, Blood Gas Ventilator Setting NO, Blood Gas Inspired Oxygen 2 05/10/22 05:27: White Blood Count 8.9, Red Blood Count 4.06, Hemoglobin 12.0, Hematocrit 35, Mean Corpuscular Volume 87, Mean Corpuscular Hemoglobin 30, Mean Corpuscular Hemoglobin Concent 34, Red Cell Distribution Width 13.5, Platelet Count 333, Mean Platelet Volume 8.5, Immature Granulocyte % (Auto) 2, Neutrophils (%) (Auto) 80, Lymphocytes (%) (Auto) 13, Monocytes (%) (Auto) 4, Eosinophils (%) (Auto) 0, Basophils (%) (Auto) 0, Neutrophils # (Auto) 7.1, Lymphocytes # (Auto) 1.1, Monocytes # (Auto) 0.4, Eosinophils # (Auto) 0.0, Basophils # (Auto) 0.0, Immature Granulocyte # (Auto) 0.2, Sodium Level 140, Potassium Level 3.5, Chloride Level 105, Carbon Dioxide Level 20, Anion Gap 15, Blood Urea Nitrogen 10, Creatinine 0.66, Estimat Glomerular Filtration Rate 97, BUN/Creatinine Ratio 15, Glucose Level 165, Calcium Level 8.8, Corrected Calcium 8.9, Total Bilirubin 0.2, Aspartate Amino Transf (AST/SGOT) 21, Alanine Aminotransferase (ALT/SGPT) 25, Alkaline Phosphatase 75, Total Protein 7.1, Albumin 3.9 05/11/22 05:10: White Blood Count 12.5, Red Blood Count 3.82, Hemoglobin 11.1, Hematocrit 33, Mean Corpuscular Volume 86, Mean Corpuscular Hemoglobin 29, Mean Corpuscular Hemoglobin Concent 34, Red Cell Distribution Width 13.7, Platelet Count 364, Mean Platelet Volume 8.6, Immature Granulocyte % (Auto) 1, Neutrophils (%) (Auto) 80, Lymphocytes (%) (Auto) 11, Monocytes (%) (Auto) 7, Eosinophils (%) (Auto) 0, Basophils (%) (Auto) 0, Neutrophils # (Auto) 10.1, Lymphocytes # ( Auto) 1.4, Monocytes # (Auto) 0.9, Eosinophils # (Auto) 0.0, Basophils # (Auto) 0.0, Immature Granulocyte # (Auto) 0.1, Sodium Level 140, Potassium Level 3.3, Chloride Level 105, Carbon Dioxide Level 23, Anion Gap 12, Blood Urea Nitrogen 14, Creatinine 0.67, Estimat Glomerular Filtration Rate 96, BUN/Creatinine Ratio 21, Glucose Level 134, Calcium Level 8.6, Corrected Calcium 8.7, Total Bilirubin 0.2, Aspartate Amino Transf (AST/SGOT) 20, Alanine Aminotransferase (ALT/SGPT) 27, Alkaline Phosphatase 66, Total Protein 6.8, Albumin 3.9 Discharge Home Medications: Active Scripts Active Prednisone 20 Mg Tab 20 Mg PO DAILY Take 3 tabs(60mg)daily, decrease by 1/2 tab(10mg)daily. Potassium Chloride 10 Meq Tab.er.prt 10 Meq PO DAILY Lasix (Furosemide) 40 Mg Tablet 40 Mg PO Q48H Reported Magnesium (Magnesium Oxide) 400 Mg Magnesium Tablet 400 Mg PO HS Vitamin B-12 (Cyanocobalamin (Vitamin B-12)) 1,000 Mcg Tablet 1,000 Mcg PO DAILY Ferrous Sulfate 220 Mg (44 Mg Iron)/5 Ml Elixir 5 Ml PO 1300 Duloxetine HCl 60 Mg Capsule.dr 120 Mg PO HS TAKES 2 (60MG) CAPS Oxybutynin Chloride 5 Mg Tablet 5 Mg PO BID Pramipexole Dihydrochloride (Pramipexole Di-HCl) 1 Mg Tablet 1 Mg PO HS Montelukast Sodium 10 Mg Tablet 10 Mg PO DAILY LAST FILLED 03-10-2022 #30/30 DAY SUPPLY Melatonin 10 Mg Capsule 10 Mg PO HS Centrum Silver Tablet (Multivit-Min/FA/Lycopene/Lut) 1 Each Tablet 1 Each PO DAILY Cyclobenzaprine HCl 10 Mg Tablet 10 Mg PO HS Trazodone HCl 150 Mg Tablet 75 Mg PO HS TAKES OF A 150MG Omeprazole 20 Mg Capsule.dr 20 Mg PO DAILY Estradiol Tablet (Estradiol) 1 Mg Tablet 1 Mg PO DAILY Flonase Allergy Relief (Fluticasone Propionate) 50 Mcg/Actuation [place].susp 1 [place] NSEACH DAILY Instructions to patient/family Please see electronic discharge instructions given to patient. MILLICENT MARKS DO May 11, 2022 12:06
[2022-05-11 12:54] VITALS: BP 145/81
== END 2022-05-11 12:54 | disposition home or self-care (01) | DRG 871 ==
LOC: EDUNIT# 11:56 → ER 11:58 → 4TH 15:06 → OBSVTOIN 05-10 06:30
PROVIDERS: ADMIT Internal Medicine; ATTEND Internal Medicine
DX: A41.9 Sepsis, unspecified organism (principal); J96.01 Acute respiratory failure with hypoxia; I27.20 Pulmonary hypertension, unspecified; I07.1 Rheumatic tricuspid insufficiency; Z86.16 Personal history of COVID-19; G47.33 Obstructive sleep apnea (adult) (pediatric); J98.01 Acute bronchospasm; R00.2 Palpitations; R00.0 Tachycardia, unspecified; E78.00 Pure hypercholesterolemia, unspecified; I10 Essential (primary) hypertension; K21.9 Gastro-esophageal reflux disease without esophagitis; M19.90 Unspecified osteoarthritis, unspecified site; G89.29 Other chronic pain; M54.9 Dorsalgia, unspecified; F32.A Depression, unspecified; Z20.822 Contact with and (suspected) exposure to COVID-19; G62.9 Polyneuropathy, unspecified; J30.2 Other seasonal allergic rhinitis; Z78.0 Asymptomatic menopausal state; G47.00 Insomnia, unspecified; G43.909 Migraine, unspecified, not intractable, without status migrainosus; E86.0 Dehydration
CPT/HCPCS: 36415; 36600; 71045; 71046; 71275; 78452; 80053; 82805; 83690; 83735; 83880; 84484; 85007; 85025; 85027; 85379; 85652; 86141; 87636; 93005; 93017; 93041; 93306; 94760; 94761; G0378

== ENCOUNTER → 2022-06-17 | Outpatient (CLI) | payer MEDICARE, OTHER ==
[~2022-06-17] MED LIST changes: +CYAN-41 PO; +DULO60CA59; +DULO60CA59 PO; +FESO45ML PO; +FURO-124 PO; +MAGN400T39 PO; +MONT-40 PO; +OXYB5TAB13 PO; +POTA-177 PO; +PRAM1TAB5 PO; +RT-ALBUTEROL SULF 2.5 MG/3 ML PRE-MIX VIAL INH ONE
== END ==
LOC: RT 07:16
PROVIDERS: ATTEND Internal Medicine Cardiovascular Disease
DX: R06.09 Other forms of dyspnea (principal)
CPT/HCPCS: 94060; 94726; 94729

== ENCOUNTER 2022-07-19 12:09 | Outpatient (CLI) | payer MEDICARE, OTHER ==
[~2022-07-19 12:09] MED LIST changes: +FERR220S8 PO; -FESO45ML PO; -RT-ALBUTEROL SULF 2.5 MG/3 ML PRE-MIX VIAL INH ONE
--- NOTE | 2022-07-19 16:12 | Diagnostic Imaging Report ---
PROCEDURE: US Thyroid. TECHNIQUE: Multiple real-time grayscale images were obtained of the thyroid in various projections. INDICATION: Thyroid nodules, follow-up. COMPARISON: Correlation is made with prior thyroid ultrasound from 04/05/2020. FINDINGS: Right lobe of the thyroid measures 4.5 x 1.8 x 1.4 cm and the left lobe measures 4.5 x 1.5 x 0.9 cm. Isthmus is 5 mm in thickness. A cystic nodule in the right [id number] pole thyroid lobe remains under 1 cm in size at 9 x 6 x 6 mm. This compares with 7 x 5 x 6 mm on prior. A more solid nodule in the lower pole measures 5 x 4 x 5 mm compared with 9 x 5 x 6 mm on prior. Isthmus nodule measures 11 x 5 x 8 mm compared with 7 x 4 x 6 mm. Left lobe shows homogeneous echotexture without discrete mass. IMPRESSION: Right lobe and isthmus thyroid nodules, as described. The solid nodule in the right lobe as well as the isthmus nodule measure minimally larger. Continued follow-up is recommended to assure stability. Dictated by: Dictated on workstation # [id number]
== END 2022-07-19 13:30 ==
LOC: RAD 12:09 → SLEEP 13:30
PROVIDERS: ATTEND Otolaryngology Otolaryngology/Facial Plastic Surgery
DX: G47.33 Obstructive sleep apnea (adult) (pediatric) (principal); E04.2 Nontoxic multinodular goiter; R06.83 Snoring
CPT/HCPCS: 76536; G0399

== ENCOUNTER → 2022-08-29 | Outpatient (CLI) | payer MEDICARE, OTHER ==
--- NOTE | 2022-08-29 15:32 | Diagnostic Imaging Report ---
Indication: Routine screening. Comparison is made with prior mammograms from 07/31/2021 and 05/02/2020. 2-D and 3-D bilateral screening mammography was performed with CAD. Both breasts are heterogeneously dense, limiting the sensitivity of mammography. Intraparenchymal lymph node in the outer right breast is noted. No spiculated mass or malignant-appearing microcalcifications are seen. Axillae are unremarkable. IMPRESSION: BI-RADS Category 2 No mammographic features suspicious for malignancy are identified. ACR BI-RADS Category 2: Benign findings. Result letter will be mailed to the patient. Note: At least 10% of breast cancer is not imaged by mammography. Dictated by: Dictated on workstation # [id number]
== END ==
LOC: RAD 10:41
PROVIDERS: ATTEND Internal Medicine
DX: Z12.31 Encounter for screening mammogram for malignant neoplasm of breast (principal)
CPT/HCPCS: 77063; 77067

== ENCOUNTER → 2022-09-25 | Outpatient (CLI) | payer MEDICARE, OTHER ==
[2022-09-25 18:06] LABS: HEMATOCRIT 37 % (35-52); HEMOGLOBIN 12.4 g/dL (11.5-16.0); MEAN CORPUSCULAR HEMOGLOBIN 29 pg (25-34); MEAN CORPUSCULAR HGB CONC 34 g/dL (32-36); MEAN CORPUSCULAR VOLUME 86 fL (80-99); MEAN PLATELET VOLUME 8.3 fL (9.0-12.2); PLATELET COUNT 390 10^3/uL (130-400); WHITE BLOOD COUNT 10.8 10^3/uL (4.3-11.0)
[2022-09-25 18:18] LABS: ALBUMIN 4.4 GM/DL (3.2-4.5)
[2022-09-25 18:19] LABS: CHLORIDE 103 MMOL/L (98-107); POTASSIUM 4.3 MMOL/L (3.6-5.0); SODIUM 139 MMOL/L (135-145)
[2022-09-25 18:20] LABS: CALCIUM 9.5 MG/DL (8.5-10.1)
[2022-09-25 18:21] LABS: GLUCOSE 117 MG/DL (70-105); TOTAL PROTEIN 7.9 GM/DL (6.4-8.2)
[2022-09-25 18:22] LABS: CARBON DIOXIDE 22 MMOL/L (21-32)
[2022-09-25 18:23] LABS: BILIRUBIN,TOTAL 0.2 MG/DL (0.1-1.0)
[2022-09-25 18:24] LABS: ALKALINE PHOSPHATASE 86 U/L (40-136)
[2022-09-25 18:25] LABS: CREATININE SERUM 0.78 MG/DL (0.60-1.30); GFR ESTIMATED 84
[2022-09-25 18:26] LABS: BUN/CREATININE RATIO 19
[2022-09-25 18:27] LABS: ALANINE AMINOTRANSFERASE 18 U/L (0-55)
== END ==
LOC: LAB 17:50
PROVIDERS: ATTEND Registered Nurse Critical Care Medicine
DX: J18.9 Pneumonia, unspecified organism (principal); I38 Endocarditis, valve unspecified
CPT/HCPCS: 36415; 80053; 83880; 84484; 85027; 86738

== ENCOUNTER 2022-10-18 21:10 | Outpatient (CLI) | payer MEDICARE, OTHER | END 2022-10-19 06:10 | LOC: SLEEP 21:10 | PROVIDERS: ATTEND Otolaryngology Otolaryngology/Facial Plastic Surgery | DX: G47.33 Obstructive sleep apnea (adult) (pediatric) (principal); R06.83 Snoring | CPT/HCPCS: 95811 ==

== ENCOUNTER 2022-11-20 13:23 | Inpatient (IN) | payer MEDICARE, OTHER ==
[~2022-11-20] VITALS: Ht 162 cm; Wt 83.2 kg
[2022-11-20] MEDS ORDERED: CEFEPIME INJECTION 1,000 MG in NS (IVPB) 50 ML 50 ML IV ONE (14:45)
[2022-11-20 14:53] LABS: ALBUMIN 4.4 GM/DL (3.2-4.5); BASOPHILS % (AUTO) 0 % (0-10); EOSINOPHILS # (AUTO) 0.1 10^3/uL (0.0-0.3); EOSINOPHILS % (AUTO) 1 % (0-10); HEMATOCRIT 36 % (35-52); HEMOGLOBIN 12.1 g/dL (11.5-16.0); LYMPHOCYTES # (AUTO) 3.5 X 10^3 (1.0-4.0); LYMPHOCYTES % (AUTO) 27 % (12-44); MEAN CORPUSCULAR HEMOGLOBIN 29 pg (25-34); MEAN CORPUSCULAR HGB CONC 34 g/dL (32-36); MEAN CORPUSCULAR VOLUME 87 fL (80-99); MEAN PLATELET VOLUME 8.9 fL (9.0-12.2); MONOCYTES # (AUTO) 1.8 X 10^3 (0.0-1.0); MONOCYTES % (AUTO) 14 % (0-12); NEUTROPHILS # (AUTO) 7.4 X 10^3 (1.8-7.8); NEUTROPHILS % (AUTO) 58 % (42-75); PLATELET COUNT 411 10^3/uL (130-400); WHITE BLOOD COUNT 12.9 10^3/uL (4.3-11.0)
[2022-11-20 14:54] LABS: CALCIUM 9.5 MG/DL (8.5-10.1)
[2022-11-20 14:55] LABS: TOTAL PROTEIN 7.8 GM/DL (6.4-8.2)
[2022-11-20 14:57] LABS: BILIRUBIN,TOTAL 0.4 MG/DL (0.1-1.0); PROTHROMBIN TIME PATIENT 13.1 SEC (12.2-14.7)
[2022-11-20 14:59] LABS: CREATININE SERUM 0.76 MG/DL (0.60-1.30)
--- NOTE | 2022-11-20 14:59 | ED Respiratory ---
General Chief Complaint: Respiratory Problems Stated Complaint: CHEST CONGESTION| PNEUMONIA | OTHER HEART AND LUNG Nursing Triage Note: pt reports she gets frequent pnuemonia, increased SOB and fevers. Source: patient Exam Limitations: no limitations History of Present Illness Date Seen by Provider: Nov 20, 2022 Time Seen by Provider: 14:58 Initial Comments Patient is a 67-year-old female with a history of coronary artery disease who presents ED for chest pain. Chest pain started on the right side and migrated to the left side and back. This started yesterday evening. Pain has been constant described as sharp. Associated shortness of breath with exertion and when she lies down. She reports a mild cough. She reports chills with some mild fatigue and weakness. She was found to be hypoxic in the waiting room was placed on 2 L. Denies history of COPD or asthma. Denies any recent travels or surgeries. She denies of any vomiting, diarrhea, abdominal pain, headache, dizziness or visual changes. She does not appear in respiratory distress on arrival but she is tachycardic. Septic work-up was initiated. She denies of any known fever Allergies and Home Medications Allergies Coded Allergies: Penicillins (Unverified Adverse Reaction, Intermediate, rash, dyspnea, 04/27/18) Patient Home Medication List Home Medication List Reviewed: Yes Cyanocobalamin (Vitamin B-12) (Vitamin B-12) 1,000 Mcg Tablet, 1,000 MCG PO DAILY, (Reported) Entered as Reported by: CIARRA WHEAT on 05/09/22 1252 Cyclobenzaprine HCl (Cyclobenzaprine HCl) 10 Mg Tablet, 10 MG PO HS, (Reported) Entered as Reported by: CHELY BUCHANAN on 04/27/18 1429 Duloxetine HCl (Duloxetine HCl) 60 Mg Capsule.dr, 120 MG PO HS, (Reported) Entered as Reported by: CIARRA WHEAT on 05/09/22 1252 Estradiol (Estradiol Tablet) 1 Mg Tablet, 1 MG PO DAILY, (Reported) Entered as Reported by: CHELY BUCHANAN on 12/13/14 1152 Ferrous Sulfate (Ferrous Sulfate) 220 Mg (44 Mg Iron)/5 Ml Elixir, 5 ML PO 1300, (Reported) Entered as Reported by: CIARRA WHEAT on 05/09/22 1252 Fluticasone Propionate (Flonase Allergy Relief) 50 Mcg/Actuation [place].susp, 1 SPRAY NSEACH DAILY, (Reported) Entered as Reported by: CHELY BUCHANAN on 12/13/14 115 Furosemide (Lasix) 40 Mg Tablet, 40 MG PO Q48H Prescribed by: MILLICENT MARKS on 05/11/22 1206 Magnesium Oxide (Magnesium) 400 Mg Magnesium Tablet, 400 MG PO HS, (Reported) Entered as Reported by: CIARRA WHEAT on 05/09/22 1252 Melatonin (Melatonin) 10 Mg Capsule, 10 MG PO HS, (Reported) Entered as Reported by: CHELY BUCHANAN on 04/27/18 1429 Montelukast Sodium (Montelukast Sodium) 10 Mg Tablet, 10 MG PO DAILY, (Reported) Entered as Reported by: SOCORRO TAYLOR on 05/08/22 1215 Multivit-Min/FA/Lycopene/Lut (Centrum Silver Tablet) 1 Each Tablet, 1 EACH PO DA ROSALIA, (Reported) Entered as Reported by: CHELY BUCHANAN on 04/27/18 1429 Omeprazole (Omeprazole) 20 Mg Capsule.dr, 20 MG PO DAILY, (Reported) Entered as Reported by: CHELY BUCHANAN on 04/27/18 1429 Oxybutynin Chloride (Oxybutynin Chloride) 5 Mg Tablet, 5 MG PO BID, (Reported) Entered as Reported by: SOCORRO TAYLOR on 05/08/22 1215 Potassium Chloride (Potassium Chloride) 10 Meq Tab.er.prt, 10 MEQ PO DAILY Prescribed by: MILLICENT MARKS on 05/11/22 1206 Pramipexole Di-HCl (Pramipexole Dihydrochloride) 1 Mg Tablet, 1 MG PO HS, (Reported) Entered as Reported by: SOCORRO TAYLOR on 05/08/22 1215 Prednisone (Prednisone) 20 Mg Tab, 20 MG PO DAILY Prescribed by: MILLICENT MARKS on 05/11/22 1206 Trazodone HCl (Trazodone HCl) 150 Mg Tablet, 75 MG PO HS, (Reported) Entered as Reported by: CHELY BUCHANAN on 04/27/18 1429 Review of Systems Review of Systems Constitutional: chills, malaise, weakness EENTM: No ear pain, No blurred vision Respiratory: cough, dyspnea on exertion Cardiovascular: chest pain Gastrointestinal: No abdominal pain, No diarrhea, No nausea, No vomiting Genitourinary: No decreased output, No discharge Musculoskeletal: No back pain, No joint pain Skin: No change in color All Other Systems Reviewed Negative Unless Noted: Yes Past Zhhgmye-Jmavmn-Eqnilv Hx Patient Social History Tobacco Use?: No Use of E-Cig and/or Vaping dev: No Substance use?: No Alcohol Use?: Yes Pt feels they are or have been: No Immunizations Up To Date Tetanus Booster (TDap): Unknown PED Vaccines UTD: Yes First/Initial COVID19 Vaccinat: RECEIVED, UNK WHEN Second COVID19 Vaccination Uriah: RECEIVED, UNK WHEN COVID19 Vaccine Occupational Therapist Rehab Manager: UNK Seasonal Allergies Seasonal Allergies: Yes Past Medical History Surgery/Hospitalization HX: pmh: heart ablations, leaking heart valve, tachycardia, hysterectomy Surgeries: Yes (L7 RUPTURED DISC REPAIR, C7 discectomy, CARDIAC ABLATION) Cardiac, Hysterectomy, Orthopedic Respiratory: No Cardiac: Yes (SVT, ABLATION) High Cholesterol, Hypertension Neurological: Yes (FROM SPINAL STENOSIS) Neuropathy Reproductive Disorders: Yes (DUB, FIBROIDS) Female Reproductive Disorders: Menstrual Problems CHEMIST PHYSICAL History: Hysterectomy Sexually Transmitted Disease: Yes (HERPES) HIV/AIDS: No Genitourinary: No Gastrointestinal: Yes Gastroesophageal Reflux, Chronic Constipation Musculoskeletal: Yes (SPINAL STENOSIS) Degenerate Disk Disease, Arthritis, Chronic Back Pain Endocrine: No HEENT: Yes (GLASSES) Loss of Vision: Bilateral Hearing Impairment: Hard of Hearing, Bilateral Hearing Aide Cancer: No Psychosocial: Yes Sleep Difficulties, Depression Integumentary: No Blood Disorders: Yes (ANEMIA) Adverse Reaction/Blood Tranf: No (N/A) Family Medical History Colon cancer 19 MOTHER LUNG CANCER 19 FATHER THYROID CANCER G8 SISTER No Pertinent Family Hx Physical Exam Vital Signs - First Documented 11/20/22 11/20/22 13:42 13:59 Temp 36.8 Pulse 115 Resp 30 B/P (MAP) 131/80 (97) Pulse Ox 87 O2 Delivery Room Air O2 Flow Rate 2.00 Capillary Refill : Less Than 3 Seconds Height: 5'4.00" Weight: 165lbs. 0.0oz. [id number]; 31.00 BMI Method:Stated General Appearance: WD/WN, no apparent distress Eyes: Bilateral Eye Normal Inspection, Bilateral Eye PERRL, Bilateral Eye EOMI HEENT: PERRL/EOMI, normal ENT inspection, TMs normal, pharynx normal Neck: non-tender, full range of motion, supple Respiratory: chest non-tender, lungs clear, normal breath sounds, no respiratory distress Cardiovascular: no gallop, tachycardia Gastrointestinal: normal bowel sounds, non tender, soft, no organomegaly Extremities: normal range of motion, non-tender, normal inspection Neurologic/Psychiatric: police officer II-XII nml as tested, no motor/sensory deficits, alert, normal mood/affect, oriented x 3 Skin: normal color, warm/dry Focused Exam Lactate Level 11/20/22 13:54: Lactic Acid Level 1.39 Lactic Acid Level Laboratory Tests Test 11/20/22 13:54 Lactic Acid Level 1.39 MMOL/L (0.50-2.00) Progress/Results/Core Measures Suspected Sepsis SIRS Temperature: Pulse: 115 Respiratory Rate: 30 Laboratory Tests 11/20/22 13:54: White Blood Count 12.9H Blood Pressure 131 /80 Mean: 97 11/20/22 13:54: Lactic Acid Level 1.39 Laboratory Tests 11/20/22 13:54: Creatinine 0.76, INR Comment 1.0, Platelet Count 411H, Total Bilirubin 0.4 Results/Orders Lab Results Laboratory Tests Test 11/20/22 13:54 11/20/22 14:45 11/20/22 14:50 Range/Units White Blood Count 12.9 H 4.3-11.0 10^3/uL Red Blood Count 4.13 3.80-5.11 10^6/uL Hemoglobin 12.1 11.5-16.0 g/dL Hematocrit 36 35-52 % Mean Corpuscular Volume 87 80-99 fL Mean Corpuscular Hemoglobin 29 25-34 pg Mean Corpuscular Hemoglobin Concent 34 32-36 g/dL Red Cell Distribution Width 14.0 10.0-14.5 % Platelet Count 411 H 130-400 10^3/uL Mean Platelet Volume 8.9 L 9.0-12.2 fL Immature Granulocyte % (Auto) 0 % Neutrophils (%) (Auto) 58 42-75 % Lymphocytes (%) (Auto) 27 12-44 % Monocytes (%) (Auto) 14 H 0-12 % Eosinophils (%) (Auto) 1 0-10 % Basophils (%) (Auto) 0 0-10 % Neutrophils # (Auto) 7.4 1.8-7.8 X 10^3 Lymphocytes # (Auto) 3.5 1.0-4.0 X 10^3 Monocytes # (Auto) 1.8 H 0.0-1.0 X 10^3 Eosinophils # (Auto) 0.1 0.0-0.3 10^3/uL Basophils # (Auto) 0.0 0.0-0.1 10^3/uL Immature Granulocyte # (Auto) 0.0 0.0-0.1 10^3/uL Prothrombin Time 13.1 12.2-14.7 SEC INR Comment 1.0 0.8-1.4 Activated Partial Thromboplast Time 37 H 24-35 SEC D-Dimer 0.52 H 0.00-0.49 UG/ML Sodium Level 137 135-145 MMOL/L Potassium Level 4.0 3.6-5.0 MMOL/L Chloride Level 102 98-107 MMOL/L Carbon Dioxide Level 20 L 21-32 MMOL/L Anion Gap 15 H 5-14 MMOL/L Blood Urea Nitrogen 11 7-18 MG/DL Creatinine 0.76 0.60-1.30 MG/DL Estimat Glomerular Filtration Rate 86 BUN/Creatinine Ratio 14 Glucose Level 131 H 70-105 MG/DL Lactic Acid Level 1.39 0.50-2.00 MMOL/L Calcium Level 9.5 8.5-10.1 MG/DL Corrected Calcium 9.2 8.5-10.1 MG/DL Total Bilirubin 0.4 0.1-1.0 MG/DL Aspartate Amino Transf (AST/SGOT) 17 5-34 U/L Alanine Aminotransferase (ALT/SGPT) 20 0-55 U/L Alkaline Phosphatase 72 40-136 U/L Troponin I < 0.028 <0.028 NG/ML B-Type Natriuretic Peptide 57.8 <100.0 PG/ML Total Protein 7.8 6.4-8.2 GM/DL Albumin 4.4 3.2-4.5 GM/DL Influenza Type A (RT-PCR) Not Detected Not Detecte Influenza Type B (RT-PCR) Not Detected Not Detecte SARS-CoV-2 RNA (RT-PCR) Not Detected Not Detecte Urine Color YELLOW Urine Clarity SLIGHTLY CLOUDY Urine pH 6.0 5-9 Urine Specific [place] 1.025 H 1.016-1.022 Urine Protein 1+ H NEGATIVE Urine Glucose (UA) NEGATIVE NEGATIVE Urine Ketones TRACE H NEGATIVE Urine Nitrite NEGATIVE NEGATIVE Urine Bilirubin NEGATIVE NEGATIVE Urine Urobilinogen 0.2 < = 1.0 MG/DL Urine Leukocyte Esterase NEGATIVE NEGATIVE Urine RBC (Auto) NEGATIVE NEGATIVE Urine RBC NONE /HPF Urine WBC NONE /HPF Urine Squamous Epithelial Cells 2-5 /HPF Urine Crystals NONE /LPF Urine Bacteria MODERATE H /HPF Urine Casts NONE /LPF Urine Mucus NEGATIVE /LPF Urine Culture Indicated CULTURE PENDING My Orders Orders - YESSY MAKI PA Chest 1 View, Ap/Pa Only (11/20/22 14:40) Cbc And Automated Diff (11/20/22 14:40) Comprehensive Metabolic Panel (11/20/22 14:40) Blood Culture (11/20/22 14:40) Sputum Culture (11/20/22 14:40) Urinalysis (11/20/22 14:40) Urine Culture (11/20/22 14:40) Protime With Inr (11/20/22 14:40) Partial Thromboplastin Time (11/20/22 14:40) Ed Iv/Invasive Line Start (11/20/22 14:40) Vital Signs Adult Sepsis Patie Q15M (11/20/22 14:40) Remove Rings In Anticipation O (11/20/22 14:40) Lactic Acid Analyzer (11/20/22 14:40) Influenza A And B By Pcr (11/20/22 14:40) Covid 19 Inhouse Test (11/20/22 14:40) Fibrin Degradation Products (11/20/22 14:40) Cefepime Injection (Cefepime Injection) (11/20/22 14:45) Ekg Tracing (11/20/22 14:49) Aspirin Chewable Tablet (Aspirin Chewabl (11/20/22 15:00) Troponin I Cottle (11/20/22 15:22) Bnp Alicja (11/20/22 15:22) Ct Angio Chest W (R/O Pe) (11/20/22 15:22) Ketorolac Injection (Ketorolac Injection (11/20/22 16:45) Ed Admission (Communication) (11/20/22 17:06) Medications Given in ED Current Medications Medications Dose Ordered Sig/Bing Route Start Time Stop Time Status Last Admin Dose Admin Aspirin 324 mg ONCE ONCE PO 11/20/22 15:00 11/20/22 15:01 DC 11/20/22 15:10 324 MG Cefepime HCl 1000 mg/Sodium Chloride 50 ml @ 100 mls/hr ONCE ONCE IV 11/20/22 14:45 11/20/22 15:14 DC 11/20/22 15:20 100 MLS/HR Iohexol 75 ml ONCE ONCE IV 11/20/22 16:30 11/20/22 16:39 DC 11/20/22 16:27 75 ML Sodium Chloride 100 ml ONCE ONCE IV 11/20/22 16:30 11/20/22 16:39 DC 11/20/22 16:27 100 ML Vital Signs/I&O 11/20/22 11/20/22 13:42 13:59 Temp 36.8 Pulse 115 94 Resp 30 B/P (MAP) 131/80 (97) Pulse Ox 87 93 O2 Delivery Room Air Nasal Cannula O2 Flow Rate 2.00 Capillary Refill : Less Than 3 Seconds Blood Pressure Mean: 97 ECG Comment Sinus rhythm, 97 bpm, QRS duration 98 MS, QTc 385 MS. Departure Communication (PCP) Differential diagnosis pneumonia, ACS, PE, pneumothorax. She was tachycardic and hypoxic. Septic work-up was initiated. Does not appear in respiratory distress. Lung sounds fairly clear throughout. No abdominal tenderness. Blood cultures pending. Normal lactic acid. CBC with a white blood count of 12.9. Normal hemoglobin, platelets 411. Chemistry was grossly unremarkable. Did obtain a chest EKG secondary to chest pain which did not note any arrhythmia, ST elevation or depression. Sinus rhythm noted. Troponin and BNP negative. Slight elevated D-dimer. Chest x-ray atelectasis left lung base. No evidence of pneumothorax or pleural effusion. CT angio of the chest concern for pneu monia. Was started on cefepime on arrival. Due to the hypoxia and pneumonia patient will be admitted for IV antibiotics and further evaluation of the chest pain which is likely secondary to the pneumonia. Patient did receive a full aspirin. She was requesting Toradol which was given. Patient was discussed with Dr. Marks patient's primary care physician who agreed to accept patient to cardiac stepdown. Patient is stable at this time. Currently on 2 L at 97% Impression Primary Impression: Pneumonia Disposition: 01 HOME, SELF-CARE Condition: Stable Admissions Decision to Admit Reason: Admit from ER (General) Decision to Admit/Date: Nov 20, 2022 Time/Decision to Admit Time: 16:56 Departure-Patient Inst. Referrals: MILLICENT MARKS DO (PCP/Family) Primary Care Physician YESSY MAKI Nov 20, 2022 14:59
--- NOTE | 2022-11-20 14:59 | Diagnostic Imaging Report ---
EXAMINATION: Chest, 1 view. HISTORY: Chest pain. COMPARISON: 05/08/2022. FINDINGS: There is mild atelectasis in the left base. No edema or pneumonia. No pleural effusion or pneumothorax. IMPRESSION: Mild atelectasis in the left base. Dictated by: Dictated on workstation # [id number]
[2022-11-20 15:00] LABS: FIBRIN DEGRADATION PRODUCTS 0.52 UG/ML (0.00-0.49)
[2022-11-20] MEDS ORDERED: ASPIRIN 81 MG CHEWABLE TABLET PO ONE (15:00)
[2022-11-20 15:12] LABS: CLARITY,URINE SLIGHTLY CLOUDY; COLOR,URINE YELLOW
[2022-11-20 15:13] LABS: BACTERIA,URINE MODERATE /HPF; BILIRUBIN,URINE NEGATIVE (NEGATIVE); GLUCOSE, URINE (UA) NEGATIVE (NEGATIVE); KETONES,URINE TRACE (NEGATIVE); LEUKOCYTE ESTERASE ,URINE NEGATIVE (NEGATIVE); NITRITE,URINE NEGATIVE (NEGATIVE); PROTEIN,URINE 1+ (NEGATIVE)
[2022-11-20] MEDS ORDERED: HOLD METFORMIN - RECEIVED CONTRAST 20 ML VIAL IV SCH (16:30)
[2022-11-20] MEDS ORDERED: IOHEXOL 350 MG/ML 100 ML (OMNIPAQUE 350) VIAL IV ONE (16:30)
[2022-11-20] MEDS ORDERED: NS 100 ML (IVPB) BAG IV ONE (16:30)
--- NOTE | 2022-11-20 16:36 | Diagnostic Imaging Report ---
Indication: Right-sided chest pain and hypoxia. History of pneumonia CTA chest obtained with IV contrast bolus and nip reconstructions. Dose reduction protocol was used. There is no previous study for comparison. There is some respiratory motion artifact which limits this study. The pulmonary parenchymal vessels appear well opacified with no CT evidence of pulmonary emboli. The thoracic aorta shows no dissection or aneurysm. Great vessel origins are patent and without stenosis. There are no enlarged axillary nodes. There are no enlarged mediastinal or hilar nodes. There is no pleural or pericardial fluid. Visualized portions of the upper abdomen demonstrate hepatomegaly. Lung parenchymal windows demonstrated patchy groundglass infiltrates throughout both lungs as well as some alveolar infiltrate in the lower lobes. IMPRESSION: No CT evidence of pulmonary emboli or acute aortic pathology. No overt mass lesion or pleural fluid. Patchy groundglass infiltrates throughout both lungs as well as alveolar infiltrate in lower lobes are noted, compatible with pneumonia. Dictated by: Dictated on workstation # [id number]
[2022-11-20] MEDS ORDERED: KETOROLAC INJ 30 MG/ML VIAL IVP ONE (16:45)
--- NOTE | 2022-11-20 16:55 | History & Physical ---
History of Present Illness HPI/Chief Complaint CC: Pneumonia with hypoxia HPI: This is a 67yo[facility] clinic patient of mine with h/o valvular heart disease and PHTN managed by Dr Salmeron and recent dx of LORENE managed by Dr Koo and has a h/o PNA who presented to the ER with hypoxia and cough. She had an URI 2 weeks ago and was placed on Zpack by Dr Koo's office but she steadily declined with fevers and increased dyspnea along with chest pain last night which prompted the ER visit and she was found to have hypoxia of 85% so she was placed on O2 and Abx and admitted. Source: patient Exam Limitations: no limitations Date Seen 11/20/22 Time Seen by a Provider: 18:00 Attending Physician Manda Marks DO PCP Admitting Physician: Attending Physician: Referring Physician Date of Admission Home Medications & Allergies Home Medications Reviewed patient Home Medication Reconciliation performed by pharmacy medication reconciliations fire extinguisher technician and/or nursing. Patients Allergies have been reviewed. Allergies Allergies Coded Allergies Penicillins (Unverified Adverse Reaction, Intermediate, rash, dyspnea, 04/27/18) Past Ywpzmka-Nqidiu-Ywemel Hx Past Med/Social Hx: Reviewed Nursing Past Med/Soc Hx, Reviewed and Corrections made Patient Social History Marrital Status: Employed/Student: retired Alcohol Use: Denies Use Smoking Status: Never a Smoker 2nd Hand Smoke Exposure: Yes Recent Hopitalizations: No Immunizations Up To Date Tetanus Booster (TDap): Unknown Pediatric: Yes Date of Influenza Vaccine: Nov 18, 2022 Seasonal Allergies Seasonal Allergies: Yes Past Medical History Surgeries: Cardiac, Hysterectomy, Orthopedic Respiratory: Pneumonia, Sleep Apnea Cardiac: High Cholesterol, Hypertension, Valvular Heart Disease PHTN Neurological: Neuropathy Reproductive: Yes (DUB, FIBROIDS) Sexually Transmitted Disease: Yes (HERPES) HIV/AIDS: No Female Reproductive Disorders: Menstrual Problems Hysterectomy Gastrointestinal: Gastroesophageal Reflux, Chronic Constipation Musculoskeletal: Degenerate Disk Disease, Arthritis, Chronic Back Pain Loss of Vision: Bilateral Hearing Impairment: Hard of Hearing, Bilateral Hearing Aide Psychosocial: Sleep Difficulties, Depression History of Blood Disorders: Yes (ANEMIA) Adverse Reaction to Blood Murry: No (N/A) Family History Colon cancer 19 MOTHER LUNG CANCER 19 FATHER THYROID CANCER G8 SISTER No Pertinent Family Hx Review of Systems Constitutional: see HPI, dizziness, fever, malaise, weakness EENTM: no symptoms reported Respiratory: cough, dyspnea on exertion, short of breath, wheezing Cardiovascular: chest pain Gastrointestinal: no symptoms reported Genitourinary: no symptoms reported Musculoskeletal: no symptoms reported Skin: no symptoms reported Psychiatric/Neurological: Anxiety, Depressed All Other Systems Reviewed Negative Unless Noted: Yes Physical Exam Physical Exam Vital Signs Vital Signs - First Documented 11/20/22 11/20/22 11/20/22 13:42 13:59 18:12 Temp 36.8 Pulse 115 Resp 30 B/P (MAP) 131/80 (97) Pulse Ox 87 O2 Delivery Room Air O2 Flow Rate 2.00 FiO2 21 Capillary Refill : Less Than 3 Seconds Height, Weight, BMI Height: 5'4.00" Weight: 165lbs. 0.0oz. 74.999288jq; 31.00 BMI Method:Stated General Appearance: No Apparent Distress, WD/WN, Chronically ill Eyes: Bilateral Eye Normal Inspection, Bilateral Eye PERRL HEENT: PERRL/EOMI, Normal ENT Inspection, Pharynx Normal Neck: Full Range of Motion, Normal Inspection, Non Tender, Supple, Carotid Bruit Respiratory: Chest Non Tender, No Accessory Muscle Use, No Respiratory Distress, Crackles, Decreased Breath Sounds, Rales, Wheezing Cardiovascular: Regular Rate, Rhythm, No Edema, No Gallop, No JVD, No Murmur, Normal Peripheral Pulses Gastrointestinal: Normal Bowel Sounds, No Organomegaly, No Pulsatile Mass, Non Tender, Soft Back: Normal Inspection, No CVA Tenderness, No Vertebral Tenderness Extremity: Normal Capillary Refill, Normal Inspection, Normal Range of Motion, Non Tender, No Calf Tenderness, No Pedal Edema Neurologic/Psychiatric: Alert, Oriented x3, No Motor/Sensory Deficits, Normal Mood/Affect Skin: Normal Color, Warm/Dry Lymphatic: No Adenopathy Results Results/Procedures Labs Laboratory Tests 11/20/22 13:54 Patient resulted labs reviewed. Assessment/Plan Admission Diagnosis Assessment: Acute hypoxic respiratory failure Acute bronchospasm PNA Dyspnea Chest pain Hypoxia requiring O2 Moderate-severe tricupsid regurg Pulmonary HTN Poor exercise intolerance Past h/o COVID Weight gain Severe LORENE Plan: O2 IVF IV abx Monitor closely Admission Status: Inpatient Order (span 2 midnights) Reason for Inpatient Admission: resp failure MANDA MARKS DO Nov 20, 2022 16:55
[2022-11-20] MEDS ORDERED: ONDANSETRON 4 MG ORAL DISSOLVE TABLET PO PRN (18:00)
[2022-11-20] MEDS ORDERED: ACETAMINOPHEN 325 MG TABLET PO PRN (18:00)
[2022-11-20] MEDS ORDERED: diphenhydrAMINE 25 MG TABLET PO PRN (18:00)
[2022-11-20] MEDS ORDERED: BENZONATATE 100 MG CAPSULE PO PRN (18:00)
[2022-11-20] MEDS ORDERED: morphine INJ 4 MG/ML 1 ML (VIAL/SYRINGE) IV PRN (18:00)
[2022-11-20] MEDS ORDERED: ALPRAZolam 1 MG TABLET PO PRN (18:00)
[2022-11-20] MEDS ORDERED: ANTACID SUSPENSION 30 ML UDC PO PRN (18:00)
[2022-11-20] MEDS ORDERED: LACTULOSE SYRUP 10GM/15ML 30ML UDC PO PRN (18:00)
[2022-11-20] MEDS ORDERED: diphenhydrAMINE INJ 50 MG/ML VIAL IVP PRN (18:00)
[2022-11-20] MEDS ORDERED: CALCIUM CARBONATE 500 MG CHEW TABLET PO PRN (18:00)
[2022-11-20] MEDS ORDERED: ONDANSETRON INJECTION 4 MG/2 ML (SDV) IV PRN (18:00)
[2022-11-20] MEDS ORDERED: BISACODYL 10 MG SUPPOSITORY PR PRN (18:00)
[2022-11-20] MEDS ORDERED: MILK OF MAGNESIA 400 MG/5 ML 30 ML UDC PO PRN (18:00)
[2022-11-20] MEDS ORDERED: MELATONIN 3 MG TABLET PO PRN (18:00)
[2022-11-20 18:12] VITALS: BP 131/80
[2022-11-20] MEDS ORDERED: ALPRAZolam 0.5 MG TABLET PO PRN (18:30)
[2022-11-20] MEDS ORDERED: RT-ALBUTEROL SULF 2.5 MG/3 ML PRE-MIX VIAL INH PRN (18:30)
[2022-11-20] MEDS: ENOXAPARIN 40 MG/0.4 ML SYRINGE SC SCH (18:40)
[2022-11-20] MEDS: NS IV 1000 ML 1,000 ML IV SCH (18:40)
[2022-11-20] MEDS: AZITHROMYCIN INJECTION 500 MG in NS (IVPB) 250 ML 250 ML IV SCH (18:41)
[2022-11-20 19:23] VITALS: BP 109/61
[2022-11-20] MEDS: DOCUSATE SODIUM 100 MG CAPSULE PO SCH (20:03)
[2022-11-20] MEDS: SENNOSIDES 8.6 MG TABLET PO SCH (20:03)
[2022-11-20] MEDS: dexAMETHasone INJ 4 MG/ML SDV IV SCH (20:03)
[2022-11-20] MEDS: oxyCODONE IMMEDIATE RELEASE 5 MG TABLET PO PRN (20:04)
[2022-11-20] MEDS: RT-ALBUTEROL SULF 2.5 MG/3 ML PRE-MIX VIAL INH SCH (20:48)
[2022-11-20] MEDS ORDERED: CEFEPIME INJECTION 2,000 MG in NS (IVPB) 50 ML 50 ML IV SCH (21:00)
[2022-11-20] MEDS: CEFEPIME 1,000 MG/NS 50 ML IVPB IV SCH ×2 (21:45)
[2022-11-20 23:36] VITALS: BP 113/55
[2022-11-21] MEDS: RT-ALBUTEROL SULF 2.5 MG/3 ML PRE-MIX VIAL INH SCH ×4 (02:54→21:51)
[2022-11-21] MEDS: CEFEPIME 1,000 MG/NS 50 ML IVPB IV SCH ×8 (03:44→21:07)
[2022-11-21 03:52] VITALS: BP 105/55
[2022-11-21 06:04] LABS: BASOPHILS % (AUTO) 0 % (0-10); EOSINOPHILS % (AUTO) 0 % (0-10); HEMATOCRIT 31 % (35-52); HEMOGLOBIN 10.1 g/dL (11.5-16.0); LYMPHOCYTES # (AUTO) 0.9 10^3/uL (1.0-4.0); LYMPHOCYTES % (AUTO) 10 % (12-44); MEAN CORPUSCULAR HEMOGLOBIN 29 pg (25-34); MEAN CORPUSCULAR HGB CONC 33 g/dL (32-36); MEAN CORPUSCULAR VOLUME 88 fL (80-99); MEAN PLATELET VOLUME 8.5 fL (9.0-12.2); MONOCYTES # (AUTO) 0.6 10^3/uL (0.0-1.0); MONOCYTES % (AUTO) 6 % (0-12); NEUTROPHILS # (AUTO) 7.1 10^3/uL (1.8-7.8); NEUTROPHILS % (AUTO) 82 % (42-75); PLATELET COUNT 290 10^3/uL (130-400); WHITE BLOOD COUNT 8.6 10^3/uL (4.3-11.0)
[2022-11-21 06:16] LABS: ALBUMIN 3.9 GM/DL (3.2-4.5)
[2022-11-21 06:17] LABS: CALCIUM 8.7 MG/DL (8.5-10.1)
[2022-11-21 06:18] LABS: TOTAL PROTEIN 6.8 GM/DL (6.4-8.2)
[2022-11-21 06:20] LABS: BILIRUBIN,TOTAL 0.2 MG/DL (0.1-1.0)
[2022-11-21 06:22] LABS: CREATININE SERUM 0.73 MG/DL (0.60-1.30)
[2022-11-21] MEDS: oxyCODONE IMMEDIATE RELEASE 5 MG TABLET PO PRN ×2 (06:24→23:42)
[2022-11-21 07:38] VITALS: BP 109/61
--- NOTE | 2022-11-21 08:23 | Consultation-Cardiology ---
HPI-Cardiology Cardiology Consultation Date of Consultation 11/21/22 Date of Admission Time Seen by Provider: 08:19 Indication: Chest pain HPI 67-year-old lady with history of valvular heart disease, pulmonary hypertension. She was recently diagnosed with sleep apnea. Started to have increasing shortness of breath, chest pain, low-grade fever. Came in to the emergency room and diagnosed with pneumonia. On my evaluation she was laying down comfortably in bed, denied any active chest pain. Feeling better. No palpitation. No syncope. She was treated for upper respiratory tract with Z-Luis F recently. Home Medications & Allergies Allergies: Coded Allergies: Penicillins (Unverified Adverse Reaction, Intermediate, rash, dyspnea, 04/27/18) Home Medication List Reviewed: Yes [id number] Hx Patient Social History Marital Status: Employed/Student: retired Smoking Status: Never a Smoker 2nd Hand Smoke Exposure: Yes Recent Hopitalizations: No Alcohol Use?: No Immunizations Up To Date Tetanus Booster (TDap): Unknown Date of Influenza Vaccine: Nov 18, 2022 Family Medical History Significant Family History: No Pertinent Family Hx Family History: Colon cancer 19 MOTHER LUNG CANCER 19 FATHER THYROID CANCER G8 SISTER Review of Systems-General Review of Systems Constitutional: see HPI, dizziness, fever, malaise, weakness EENTM: no symptoms reported Respiratory: cough, dyspnea on exertion, short of breath, wheezing Cardiovascular: chest pain Gastrointestinal: no symptoms reported Genitourinary: no symptoms reported Musculoskeletal: no symptoms reported Skin: no symptoms reported Psychiatric/Neurological: Anxiety, Depressed All Other Systems Reviewed Negative Unless Noted: Yes Reviewed Test Results Reviewed Test Results Lab Laboratory Tests Test 11/20/22 13:54 11/20/22 14:45 11/20/22 14:50 11/21/22 05:49 Range/Units White Blood Count 12.9 H 8.6 4.3-11.0 10^3/uL Red Blood Count 4.13 3.45 L 3.80-5.11 10^6/uL Hemoglobin 12.1 10.1 L 11.5-16.0 g/dL Hematocrit 36 31 L 35-52 % Mean Corpuscular Volume 87 88 80-99 fL Mean Corpuscular Hemoglobin 29 29 25-34 pg Mean Corpuscular Hemoglobin Concent 34 33 32-36 g/dL Red Cell Distribution Width 14.0 13.9 10.0-14.5 % Platelet Count 411 H 290 130-400 10^3/uL Mean Platelet Volume 8.9 L 8.5 L 9.0-12.2 fL Immature Granulocyte % (Auto) 0 1 % Neutrophils (%) (Auto) 58 82 H 42-75 % Lymphocytes (%) (Auto) 27 10 L 12-44 % Monocytes (%) (Auto) 14 H 6 0-12 % Eosinophils (%) (Auto) 1 0 0-10 % Basophils (%) (Auto) 0 0 0-10 % Neutrophils # (Auto) 7.4 7.1 1.8-7.8 10^3/uL Lymphocytes # (Auto) 3.5 0.9 L 1.0-4.0 10^3/uL Monocytes # (Auto) 1.8 H 0.6 0.0-1.0 10^3/uL Eosinophils # (Auto) 0.1 0.0 0.0-0.3 10^3/uL Basophils # (Auto) 0.0 0.0 0.0-0.1 10^3/uL Immature Granulocyte # (Auto) 0.0 0.1 0.0-0.1 10^3/uL Prothrombin Time 13.1 12.2-14.7 SEC INR Comment 1.0 0.8-1.4 Activated Partial Thromboplast Time 37 H 24-35 SEC D-Dimer 0.52 H 0.00-0.49 UG/ML Sodium Level 137 138 135-145 MMOL/L Potassium Level 4.0 4.0 3.6-5.0 MMOL/L Chloride Level 102 106 98-107 MMOL/L Carbon Dioxide Level 20 L 21 21-32 MMOL/L Anion Gap 15 H 11 5-14 MMOL/L Blood Urea Nitrogen 11 10 7-18 MG/DL Creatinine 0.76 0.73 0.60-1.30 MG/DL Estimat Glomerular Filtration Rate 86 91 BUN/Creatinine Ratio 14 14 Glucose Level 131 H 152 H 70-105 MG/DL Lactic Acid Level 1.39 0.50-2.00 MMOL/L Calcium Level 9.5 8.7 8.5-10.1 MG/DL Corrected Calcium 9.2 8.8 8.5-10.1 MG/DL Total Bilirubin 0.4 0.2 0.1-1.0 MG/DL Aspartate Amino Transf (AST/SGOT) 17 12 5-34 U/L Alanine Aminotransferase (ALT/SGPT) 20 16 0-55 U/L Alkaline Phosphatase 72 70 40-136 U/L Troponin I < 0.028 <0.028 NG/ML B-Type Natriuretic Peptide 57.8 <100.0 PG/ML Total Protein 7.8 6.8 6.4-8.2 GM/DL Albumin 4.4 3.9 3.2-4.5 GM/DL Influenza Type A (RT-PCR) Not Detected Not Detecte Influenza Type B (RT-PCR) Not Detected Not Detecte SARS-CoV-2 RNA (RT-PCR) Not Detected Not Detecte Urine Color YELLOW Urine Clarity SLIGHTLY CLOUDY Urine pH 6.0 5-9 Urine Specific [place] 1.025 H 1.016-1.022 Urine Protein 1+ H NEGATIVE Urine Glucose (UA) NEGATIVE NEGATIVE Urine Ketones TRACE H NEGATIVE Urine Nitrite NEGATIVE NEGATIVE Urine Bilirubin NEGATIVE NEGATIVE Urine Urobilinogen 0.2 < = 1.0 MG/DL Urine Leukocyte Esterase NEGATIVE NEGATIVE Urine RBC (Auto) NEGATIVE NEGATIVE Urine RBC NONE /HPF Urine WBC NONE /HPF Urine Squamous Epithelial Cells 2-5 /HPF Urine Crystals NONE /LPF Urine Bacteria MODERATE H /HPF Urine Casts NONE /LPF Urine Mucus NEGATIVE /LPF Urine Culture Indicated CULTURE PENDING Physical Exam Physical Exam Vital Signs Vital Signs - First Documented 11/20/22 11/20/22 11/20/22 13:42 13:59 18:12 Temp 36.8 Pulse 115 Resp 30 B/P (MAP) 131/80 (97) Pulse Ox 87 O2 Delivery Room Air O2 Flow Rate 2.00 FiO2 21 Capillary Refill : Less Than 3 Seconds Height, Weight, BMI Height: 5'4.00" Weight: 165lbs. 0.0oz. [id number]; 31.47 BMI Method:Stated General Appearance: No Apparent Distress, WD/WN, Chronically ill Eyes: Bilateral Eye Normal Inspection, Bilateral Eye PERRL, Bilateral Eye EOMI HEENT: PERRL/EOMI, Normal ENT Inspection, Pharynx Normal Neck: Full Range of Motion, Normal Inspection, Non Tender, Supple, Carotid Bruit Respiratory: Chest Non Tender, No Accessory Muscle Use, No Respiratory Distress, Crackles, Decreased Breath Sounds, Rales, Wheezing Cardiovascular: Regular Rate, Rhythm, No Edema, No Gallop, No JVD, No Murmur, Normal Peripheral Pulses Gastrointestinal: Normal Bowel Sounds, No Organomegaly, No Pulsatile Mass, Non Tender, Soft Back: Normal Inspection, No CVA Tenderness, No Vertebral Tenderness Extremity: Normal Capillary Refill, Normal Inspection, Normal Range of Motion, Non Tender, No Calf Tenderness, No Pedal Edema Neurologic/Psychiatric: Alert, Oriented x3, No Motor/Sensory Deficits, Normal Mood/Affect Skin: Normal Color, Warm/Dry Lymphatic: No Adenopathy A/P-Cardiology Admission Diagnosis Pneumonia Chest pain Shortness of breath Sleep apnea Assessment/Plan Pneumonia, receiving antibiotic treatment Managed by primary care team Shortness of breath secondary to pneumonia. Underlying sleep apnea using CPAP. 2D echo done in April 2022 with normal LV size and function ejection fraction 65 to 70%, pulmonary hypertension with PA pressure 50 to 55 mmHg, moderate to sever e tricuspid regurgitation, mild to moderate mitral regurgitation. Chest pain nonspecific etiology, probably secondary to pneumonia. Exercise stress test was done on May 10, 2022 with poor exercise tolerance for a total of 4 minutes on standard Cosmo protocol, patient was visibly short of breath after walking only for 2 minutes, oxygen saturation stayed above 90%, no ischemia or infarction noted on SPECT images with normal left ventricular function Continue with conservative management. Severe pulmonary hypertension noted on 2D echocardiogram with PA pressure 50 to 55 millimeters of mercury, moderate to severe tricuspid regurgitation, mild to moderate mitral regurgitation Unknown etiology, otherwise heart function were normal. Patient have underlying sleep apnea, managed by Dr. 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
[2022-11-21] MEDS ORDERED: LIDO73LI TP (09:16)
[2022-11-21] MEDS ORDERED: ACYC-108 PO (09:16)
[2022-11-21] MEDS ORDERED: IBUP-2473 PO (09:17)
[2022-11-21] MEDS ORDERED: BISA10SU8 RC (09:18)
--- NOTE | 2022-11-21 09:35 | Progress Note ---
HALLE LORENZANA 11/21/22 0935: Subjective Date Seen by a Provider: Nov 21, 2022 Subjective/Events-last exam This is a 67 year old female with history of valvular heart disease and pulmonary hypertension who presented to the ED yesterday with increasing SOB. Patient recently has had obstructive sleep apnea diagnosed and is undergoing management. Patient was experiecing hypoxia and cough. She had an URI two weeks ago- but had increasing hypoxia. Today she is feeling much better. Only using oxygen, 2L as needed when ambulates too much. Cough is improved, but still experiencing a little chest pain. Vital signs are stable. Patient was NPO until this morning, she began eating this morning. Focused Exam Sepsis Stage: Ruled Out Lactate Level 11/20/22 13:54: Lactic Acid Level 1.39 Objective Exam Last Set of Vital Signs Vital Signs Date Time Temp Pulse Resp B/P (MAP) Pulse Ox O2 Delivery O2 Flow Rate FiO2 11/21/22 07:38 36.9 85 18 109/61 (77) 92 Room Air 11/21/22 02:54 4.00 11/20/22 18:12 21 Capillary Refill : Less Than 3 Seconds I&O Intake and Output 11/21/22 00:00 Intake Total 100 ml Balance 100 ml Intake Oral 100 ml # Voids 1 Daily Weight Change No General: Alert, Oriented X3, Cooperative HEENT: Atraumatic, PERRLA Neck: No JVD Lungs: Clear to Auscultation Heart: Regular Rate Abdomen: Soft, No Hepatosplenomegaly Extremities: No Clubbing, No Cyanosis Skin: No Rashes, No Breakdown Neuro: Normal Speech, Strength at 5/5 X4 Ext Results Lab Laboratory Tests 11/20/22 13:54: White Blood Count 12.9H, Red Blood Count 4.13, Hemoglobin 12.1, Hematocrit 36, Mean Corpuscular Volume 87, Mean Corpuscular Hemoglobin 29, Mean Corpuscular Hemoglobin Concent 34, Red Cell Distribution Width 14.0, Platelet Count 411H, Mean Platelet Volume 8.9L, Immature Granulocyte % (Auto) 0, Neutrophils (%) (Auto) 58, Lymphocytes (%) (Auto) 27, Monocytes (%) (Auto) 14H, Eosinophils (%) (Auto) 1, Basophils (%) (Auto) 0, Neutrophils # (Auto) 7.4, Lymphocytes # (Auto) 3.5, Monocytes # (Auto) 1.8H, Eosinophils # (Auto) 0.1, Basophils # (Auto) 0.0, Immature Granulocyte # (Auto) 0.0, Prothrombin Time 13.1, INR Comment 1.0, Activated Partial Thromboplast Time 37H, D-Dimer 0.52H, Sodium Level 137, Potassium Level 4.0, Chloride Level 102, Carbon Dioxide Level 20L, Anion Gap 15H , Blood Urea Nitrogen 11, Creatinine 0.76, Estimat Glomerular Filtration Rate 86, BUN/Creatinine Ratio 14, Glucose Level 131H, Lactic Acid Level 1.39, Calcium Level 9.5, Corrected Calcium 9.2, Total Bilirubin 0.4, Aspartate Amino Transf (AST/SGOT) 17, Alanine Aminotransferase (ALT/SGPT) 20, Alkaline Phosphatase 72, Troponin I < 0.028, B-Type Natriuretic Peptide 57.8, Total Protein 7.8, Albumin 4.4 11/20/22 14:45: Influenza Type A (RT-PCR) Not Detected, Influenza Type B (RT-PCR) Not Detected, SARS-CoV-2 RNA (RT-PCR) Not Detected 11/20/22 14:50: Urine Color YELLOW, Urine Clarity SLIGHTLY CLOUDY, Urine pH 6.0, Urine Specific [place] 1.025H, Urine Protein 1+H, Urine Glucose (UA) NEGATIVE, Urine Ketones TRACEH, Urine Nitrite NEGATIVE, Urine Bilirubin NEGATIVE, Urine Urobilinogen 0.2, Urine Leukocyte Esterase NEGATIVE, Urine RBC (Auto) NEGATIVE, Urine RBC NONE, Urine WBC NONE, Urine Squamous Epithelial Cells 2-5, Urine Crystals NONE, Urine Bacteria MODERATEH, Urine Casts NONE, Urine Mucus NEGATIVE, Urine Culture Indicated CULTURE PENDING 11/21/22 05:49: White Blood Count 8.6, Red Blood Count 3.45L, Hemoglobin 10.1L, Hematocrit 31L, Mean Corpuscular Volume 88, Mean Corpuscular Hemoglobin 29, Mean Corpuscular Hemoglobin Concent 33, Red Cell Distribution Width 13.9, Platelet Count 290, Mean Platelet Volume 8.5L, Immature Granulocyte % (Auto) 1, Neutrophils (%) (Auto) 82H, Lymphocytes (%) (Auto) 10L, Monocytes (%) (Auto) 6, Eosinophils (%) (Auto) 0, Basophils (%) (Auto) 0, Neutrophils # (Auto) 7.1, Lymphocytes # (Auto) 0.9L, Monocytes # (Auto) 0.6, Eosinophils # (Auto) 0.0, Basophils # (Auto) 0.0, Immature Granulocyte # (Auto) 0.1, Sodium Level 138, Potassium Level 4.0, Chloride Level 106, Carbon Dioxide Level 21, Anion Gap 11, Blood Urea Nitrogen 10, Creatinine 0.73, Estimat Glomerular Filtration Rate 91, BUN/Creatinine Ratio 14, Glucose Level 152H, Calcium Level 8.7, Corrected Calcium 8.8, Total Bilirubin 0.2, Aspartate Amino Transf (AST/SGOT) 12, Alanine Aminotransferase (ALT/SGPT) 16, Alkaline Phosphatase 70, Total Protein 6.8, Albumin 3.9 Assessment/Plan Assessment/Plan Assess & Plan/Chief Complaint Assessment: Obstructive sleep apnea Pulmonary hypertension Tricuspid Regurgitation Acute hypoxic respiratory failure Acute bronchospasm Chest pain Hypoxia Pneumonia Plan: O2 Continue IV fluids Continue IV antibiotics Monitor closely MANDA MARKS DO 11/21/222047: Subjective Time Seen by a Provider: 10:00 Subjective/Events-last exam Improved overall Lungs are improved Minimal cough Labs stable Objective Exam General: Alert, Oriented X3, Cooperative, No Acute Distress Lungs: Clear to Auscultation, Normal Air Movement, Other (improved air movement) Heart: Regular Rate, Normal S1, Normal S2, No Murmurs Psych/Mental Status: Mental Status NL, Mood NL Assessment/Plan Assessment/Plan Assess & Plan/Chief Complaint IV abx Nebs Move to 4th Supervisory-Addendum Brief Verification & Attestation Participated in pt care: history, MDM, physical Personally performed: exam, history, MDM, supervision of care Care discussed with: Medical Student Procedures: n/a Results interpretation: Verified all documentation Verification and Attestation of Medical Student E/M Service A medical student performed and documented this service in my presence. I reviewed and verified all information documented by the medical student and made modifications to such information, when appropriate. I personally performed the physical exam and medical decision making. Manda Marks, Nov 21, 2022,20:48 HALLE LORENZANA Nov 21, 2022 09:35 MANDA MARKS DO Nov 21, 2022 20:48
[2022-11-21] MEDS: dexAMETHasone INJ 4 MG/ML SDV IV SCH ×2 (09:42→21:07)
[2022-11-21] MEDS: SENNOSIDES 8.6 MG TABLET PO SCH ×2 (09:42→21:00)
[2022-11-21] MEDS: NS IV 1000 ML 1,000 ML IV SCH (09:42)
[2022-11-21] MEDS: DOCUSATE SODIUM 100 MG CAPSULE PO SCH ×2 (09:42→21:08)
[2022-11-21] MEDS ORDERED: BISACODYL 10 MG SUPPOSITORY RC PRN (09:45)
[2022-11-21] MEDS ORDERED: IBUPROFEN 200 MG TABLET PO PRN (09:45)
[2022-11-21] MEDS ORDERED: MAGN125C PO (11:09)
[2022-11-21] MEDS ORDERED: VITA0.4T18 PO (11:09)
[2022-11-21] MEDS ORDERED: ASPI1TAB23 PO (11:09)
[2022-11-21] MEDS ORDERED: ACYCLOVIR 400 MG CAPSULE/TABLET PO PRN (11:45)
[2022-11-21 12:40] VITALS: BP 119/65
[2022-11-21] MEDS: FERROUS SULFATE ORAL LIQUID 44 MG/ML PO SCH (13:40)
[2022-11-21] MEDS: FLUTICASONE/VILANTEROL 200/25 MCG (7 DOSES) IH SCH (15:08)
[2022-11-21 15:23] VITALS: BP 147/71
--- NOTE | 2022-11-21 18:07 | Physician Query-Final Dx ---
FERN LEMOS 11/21/22 1807: Final Diagnosis Give Final Diagnosis Please give Final Diagnosis The medical record reflects the following clinical evidence: Clinical Indicators: Admission VS/Labs: HR 115, RR 30, BP 131/80, SpO2 87% sat on room air, T 36.8, WBC 12.9, lactic acid 1.39 Risk Factor(s): Pneumonia, Admitted with Hypoxia, Cough and fevers Treatment: Cefepime IV, normal saline 1 L Sepsis, unspecified organism, present on admission Other explanation of clinical findings Unable to determine (no explanation for clinical findings) Please clarify and document your clinical opinion in the progress notes and discharge summary including the definitive and/or presumptive diagnosis, (suspected or probable), related to the above clinical findings. Please include clinical findings supporting your diagnosis. Fern Lemos, MSN, RN Clinical Cancer Registry Manager [phone] [email or web address] MILLICENT MARKS DO 11/21/222100: Final Diagnosis Give Final Diagnosis sepsis FERN LEMOS Nov 21, 2022 18:07 MILLICENT MARKS DO Nov 21, 2022 21:01
--- NOTE | 2022-11-21 18:07 | Physician Query-Final Dx ---
Final Diagnosis Give Final Diagnosis Please give Final Diagnosis DIAN LEMOS Nov 21, 2022 18:07
[2022-11-21] MEDS: AZITHROMYCIN INJECTION 500 MG in NS (IVPB) 250 ML 250 ML IV SCH (18:41)
[2022-11-21] MEDS: ENOXAPARIN 40 MG/0.4 ML SYRINGE SC SCH (18:44)
[2022-11-21 20:30] VITALS: BP 133/68
[2022-11-21] MEDS ORDERED: MAGNESIUM OXIDE 400 MG TABLET PO SCH (21:00)
[2022-11-21] MEDS ORDERED: CYCLOBENZAPRINE 10 MG TABLET PO SCH (21:00)
[2022-11-21] MEDS ORDERED: DULoxetine 30 MG CAPSULE PO SCH (21:00)
[2022-11-21] MEDS ORDERED: NON-FORMULARY MEDICATION 1 EA EA (Melatonin 10 MG) PO SCH (21:00)
[2022-11-21] MEDS ORDERED: traZODone 150 MG (DESYREL) TABLET PO SCH (21:00)
[2022-11-21] MEDS ORDERED: PRAMIPEXOLE 0.5 MG TABLET PO SCH (21:00)
[2022-11-21] MEDS: OXYBUTYNIN 5 MG TABLET PO SCH (21:08)
[2022-11-21 23:35] VITALS: BP 123/68
[2022-11-22] MEDS: RT-ALBUTEROL SULF 2.5 MG/3 ML PRE-MIX VIAL INH SCH ×2 (02:53→07:12)
[2022-11-22] MEDS: CEFEPIME 1,000 MG/NS 50 ML IVPB IV SCH ×4 (03:47→10:09)
[2022-11-22 03:50] VITALS: BP 125/70
[2022-11-22 05:48] LABS: BASOPHILS % (AUTO) 0 % (0-10); EOSINOPHILS % (AUTO) 0 % (0-10); HEMATOCRIT 30 % (35-52); HEMOGLOBIN 9.7 g/dL (11.5-16.0); LYMPHOCYTES # (AUTO) 1.2 10^3/uL (1.0-4.0); LYMPHOCYTES % (AUTO) 9 % (12-44); MEAN CORPUSCULAR HEMOGLOBIN 29 pg (25-34); MEAN CORPUSCULAR HGB CONC 33 g/dL (32-36); MEAN CORPUSCULAR VOLUME 89 fL (80-99); MEAN PLATELET VOLUME 8.5 fL (9.0-12.2); MONOCYTES # (AUTO) 0.7 10^3/uL (0.0-1.0); MONOCYTES % (AUTO) 5 % (0-12); NEUTROPHILS # (AUTO) 11.1 10^3/uL (1.8-7.8); NEUTROPHILS % (AUTO) 85 % (42-75); PLATELET COUNT 311 10^3/uL (130-400); WHITE BLOOD COUNT 13.2 10^3/uL (4.3-11.0)
[2022-11-22 05:57] LABS: ALBUMIN 3.9 GM/DL (3.2-4.5)
[2022-11-22 05:59] LABS: CALCIUM 8.8 MG/DL (8.5-10.1)
[2022-11-22 06:00] LABS: TOTAL PROTEIN 6.8 GM/DL (6.4-8.2)
[2022-11-22 06:02] LABS: BILIRUBIN,TOTAL 0.2 MG/DL (0.1-1.0)
[2022-11-22 06:03] LABS: CREATININE SERUM 0.68 MG/DL (0.60-1.30)
[2022-11-22] MEDS ORDERED: THERAPEUTIC MULTIVITAMIN W/MINERALS TABLET PO SCH (07:00)
[2022-11-22] MEDS: FLUTICASONE/VILANTEROL 200/25 MCG (7 DOSES) IH SCH (07:12)
[2022-11-22 07:52] VITALS: BP 114/66
[2022-11-22] MEDS: OXYBUTYNIN 5 MG TABLET PO SCH (08:20)
[2022-11-22] MEDS: SENNOSIDES 8.6 MG TABLET PO SCH (08:20)
[2022-11-22] MEDS: DOCUSATE SODIUM 100 MG CAPSULE PO SCH (08:20)
[2022-11-22] MEDS: dexAMETHasone INJ 4 MG/ML SDV IV SCH (08:20)
[2022-11-22] MEDS ORDERED: MONTELUKAST 10 MG TABLET PO SCH (09:00)
[2022-11-22] MEDS ORDERED: PANTOPRAZOLE 20 MG TABLET PO SCH (09:00)
[2022-11-22] MEDS ORDERED: estradioL 1 MG TABLET PO SCH (09:00)
[2022-11-22] MEDS ORDERED: FLUTICASONE NASAL SPRAY (120 SPRAYS) NS PRN (09:00)
[2022-11-22] MEDS ORDERED: CYANOCOBALAMIN 1,000 MCG TABLET PO SCH (09:00)
--- NOTE | 2022-11-22 10:31 | Cardiology Progress Note ---
Subjective Date Seen by Provider: Nov 22, 2022 Time Seen by Provider: 10:30 Subjective/Events-last exam Patient was seen at bedside laying down comfortably, feeling better. No new complaint Focused Exam Lactate Level 11/20/22 13:54: Lactic Acid Level 1.39 Objective-Cardiology Exam Last Set of Vital Signs Vital Signs 11/20/22 11/21/22 11/22/22 11/22/22 18:12 08:00 07:52 08:00 Temp 36.4 Pulse 95 Resp 16 B/P (MAP) 114/66 (82) Pulse Ox 96 O2 Delivery Room Air O2 Flow Rate 2.00 FiO2 21 I&O Intake and Output 11/22/22 00:00 Intake Total 2515 ml Balance 2515 ml Intake Oral 2210 ml IV Total 305 ml # Voids 9 # Bowel Movements 1 General: Alert, Oriented X3, Cooperative, No Acute Distress HEENT: Atraumatic, PERRLA Neck: No JVD Lungs: Clear to Auscultation, Normal Air Movement, Other Heart: Regular Rate, Normal S1, Normal S2, No Murmurs Abdomen: Soft, No Hepatosplenomegaly Extremities: No Clubbing, No Cyanosis Skin: No Rashes, No Breakdown Neuro: Normal Speech, Strength at 5/5 X4 Ext Psych/Mental Status: Mental Status NL, Mood NL Results Lab Laboratory Tests 11/22/22 05:24 A/P-Cardiology Admission Diagnosis Pneumonia Chest pain Shortness of breath Sleep apnea Assessment/Plan Pneumonia, receiving antibiotic treatment Managed by primary care team Shortness of breath secondary to pneumonia. Underlying sleep apnea using CPAP. 2D echo done in April 2022 with normal LV size and function ejection fraction 65 to 70%, pulmonary hypertension with PA pressure 50 to 55 mmHg, moderate to severe tricuspid regurgitation, mild to moderate mitral regurgitation. Chest pain nonspecific etiology, probably secondary to pneumonia. Exercise stress test was done on May 10, 2022 with poor exercise tolerance for a total of 4 minutes on standard Cosmo protocol, patient was visibly short of breath after walking only for 2 minutes, oxygen saturation stayed above 90%, no ischemia or infarction noted on SPECT images with normal left ventricular function Continue with conservative management. Severe pulmonary hypertension noted on 2D echocardiogram with PA pressure 50 to 55 millimeters of mercury, moderate to severe tricuspid regurgitation, mild to moderate mitral regurgitation Unknown etiology, otherwise heart function were normal. Patient have underlying sleep apnea, managed by Dr. 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
[2022-11-22 11:26] VITALS: BP 118/73
--- NOTE | 2022-11-22 12:08 | Progress Note ---
HALLE LORENZANA 11/22/22 1208: Progress Note Sabrina is a 67 year old female with history of valvular heart disease and pulmonary hypertension who presented to the ED two days ago with increasing SOB. Patient had an URI two weeks before presenting to the ED. Patient had a CT performed which showed pneumonia. Patient was admitted for acute hypoxic respiratory failure, acute bronchospasm, and pneumonia. Patient's respiratory rate and pulse oxygen stable through her stay. Only using oxygen, 2L as needed when ambulates too much. Through her stay patient was given IV fluids and IV antibiotics. Cough improved, no more chest pain. Patient is comfortable and is ready to be discharged. Will be following up outpatient next week. MANDA MARKS DO 11/22/228: Supervisory-Addendum Brief Verification & Attestation Participated in pt care: history, MDM, physical Personally performed: exam, history, MDM, supervision of care Care discussed with: Medical Student Procedures: n/a Results interpretation: Verified all documentation Verification and Attestation of Medical Student E/M Service A medical student performed and documented this service in my presence. I reviewed and verified all information documented by the medical student and made modifications to such information, when appropriate. I personally performed the physical exam and medical decision making. Manda Marks Nov 22, 2022,21:18 HALLE LORENZANA Nov 22, 2022 12:08 MANDA MARKS DO Nov 22, 2022 21:18
[2022-11-22] MEDS ORDERED: PRD20T PO (13:02)
[2022-11-22] MEDS ORDERED: CEFD300C3 PO (13:02)
--- NOTE | 2022-11-22 13:12 | Discharge Summary ---
Discharge Summary Hospital Course Was the Problem List Reviewed?: Yes Problems/Dx: (1) Pneumonia Status: Acute Hospital Course Date of Admission: Nov 20, 2022 at 17:38 Admission Diagnosis : Family Physician/Provider: Manda Pearson DO Date of Discharge: 11/22/22 Discharge Diagnosis: Pneumonia Hospital Course: Sabrina is a 67 year old female with history of valvular heart disease and pulmonary hypertension who presented to the ED two days ago with increasing SOB. Patient had an URI two weeks before presenting to the ED. CTA chest and CXR demonstrated pneumonia. Patient was admitted for acute hypoxic respiratory failure, acute bronchospasm likely 2/2 pneumonia. Patient's respiratory rate and pulse oxygen stable throughout her stay, requiring 2L during ambulation. She was given IV fluids and IV antibiotics, cefepime and azithromycin, as well as dexamethasone. Her cough improved, and today she reported resolution of her chest pain. Patient is comfortable and is ready to be discharged. Will be following up with Dr. Pearson outpatient in 7-14 days. Labs and Pending Lab Test: Laboratory Tests 11/22/22 05:24: White Blood Count 13.2H, Red Blood Count 3.34L, Hemoglobin 9.7L, Hematocrit 30L, Mean Corpuscular Volume 89, Mean Corpuscular Hemoglobin 29, Mean Corpuscular Hemoglobin Concent 33, Red Cell Distribution Width 14.1, Platelet Count 311, Mean Platelet Volume 8.5L, Immature Granulocyte % (Auto) 1, Neutrophils (%) (Auto) 85H, Lymphocytes (%) (Auto) 9L, Monocytes (%) (Auto) 5, Eosinophils (%) (Auto) 0, Basophils (%) (Auto) 0, Neutrophils # (Auto) 11.1H, Lymphocytes # (Auto) 1.2, Monocytes # (Auto) 0.7, Eosinophils # (Auto) 0.0, Basophils # (Auto) 0.0, Immature Granulocyte # (Auto) 0.1, Sodium Level 139, Potassium Level 4.0, Chloride Level 107, Carbon Dioxide Level 21, Anion Gap 11, Blood Urea Nitrogen 9, Creatinine 0.68, Estimat Glomerular Filtration Rate 96, BUN/Creatinine Ratio 13, Glucose Level 136H, Calcium Level 8.8, Corrected Calcium 8.9, Total Bilirubin 0.2, Aspartate Amino Transf (AST/SGOT) 13, Alanine Aminotransferase (ALT/SGPT) 17, Alkaline Phosphatase 65, Total Protein 6.8, Albumin 3.9 Microbiology 11/20/22 Urine Culture - Final, Complete See Comments 11/20/22 Blood Culture - Preliminary, Resulted Home Meds Active Cefdinir 300 Mg Capsule 300 Mg PO BID 3 Days Prednisone 20 Mg Tab 20 Mg PO DAILY 2 Days Take 1 tablet daily for 2 days. Reported Excedrin Migraine Caplet (Aspirin/Acetaminophen/Caffeine) 250 Mg-250 Mg-65 Mg Tablet 2 Each PO Q6-8HR PRN Magnesium Citrate 125 Mg Capsule 250 Mg PO HS Super B Maxi Complex Caplet (Vitamin B Complex/Folic Acid) 0.4 Mg Tablet 0.4 Mg PO DAILY Ibuprofen 200 Mg Tablet 400-800 Mg PO Q8H PRN TAKES 2 TO 4 (200MG) TABS Aspercreme Lidocaine (Lidocaine HCl) 4 % Liqd.stefanie 1 Applic TP HS PRN APPLIES TO FEET AND HANDS Acyclovir 200 Mg Capsule 200 Mg PO 5XD PRN Ferrous Sulfate 220 Mg (44 Mg Iron)/5 Ml Elixir 5 Ml PO 1300 Duloxetine HCl 60 Mg Capsule.dr 120 Mg PO HS TAKES 2 (60MG) CAPS Oxybutynin Chloride 5 Mg Tablet 5 Mg PO BID Pramipexole Dihydrochloride (Pramipexole Di-HCl) 1 Mg Tablet 1 Mg PO HS Montelukast Sodium 10 Mg Tablet 10 Mg PO DAILY Melatonin 10 Mg Capsule 10 Mg PO HS Centrum Silver Tablet (Multivit-Min/FA/Lycopene/Lut) 1 Each Tablet 1 Each PO DAILY Cyclobenzaprine HCl 10 Mg Tablet 10 Mg PO HS Trazodone HCl 150 Mg Tablet 75 Mg PO HS TAKES OF A 150MG Omeprazole 20 Mg Capsule.dr 20 Mg PO DAILY Estradiol Tablet (Estradiol) 1 Mg Tablet 1 Mg PO DAILY Flonase Allergy Relief (Fluticasone Propionate) 50 Mcg/Actuation [place].susp 1 [place] NSEACH BID PRN Assessment/Pt Instructions Admitted for pneumonia. Will continue antibiotics for 3 days, Cefdinir 300 mg BID Will continue prednisone for 2 days, 20 mg daily Follow-up with Dr. Pearson in 7-14 days after discharge. Discharge Instructions Discharge Diet: No Restrictions Activity as Tolerated: Yes Discharge Physical Examination Vital Signs Vital Signs Date Time Temp Pulse Resp B/P (MAP) Pulse Ox O2 Delivery O2 Flow Rate FiO2 11/22/22 11:26 36.6 93 16 118/73 (88) 95 Room Air 11/21/22 21:51 11/20/22 18:12 21 General Appearance: No Apparent Distress Respiratory: Chest Non Tender, Normal Breath Sounds, No Accessory Muscle Use, No Respiratory Distress Cardiovascular: Regular Rate, Rhythm Skin: Warm/Dry Neurologic/Psychiatric: Alert, Oriented x3, Normal Mood/Affect Allergies: Coded Allergies: Penicillins (Unverified Adverse Reaction, Intermediate, rash, dyspnea, 04/27/18) Discharge Summary Date of Admission Nov 20, 2022 at 17:38 Date of Discharge Admission Diagnosis Assessment: Acute hypoxic respiratory failure Acute bronchospasm PNA Dyspnea Chest pain Hypoxia requiring O2 Moderate-severe tricupsid regurg Pulmonary HTN Poor exercise intolerance Past h/o COVID Weight gain Severe LORENE Plan: O2 IVF IV abx SHARON MURO MD,RESIDENT Nov 22, 2022 13:08
[2022-11-22] MEDS: FERROUS SULFATE ORAL LIQUID 44 MG/ML PO SCH (13:20)
[2022-11-22 14:05] VITALS: BP 118/73
== END 2022-11-22 14:15 | disposition home or self-care (01) | DRG 871 ==
LOC: EDUNIT# 13:23 → ER 13:26 → CSD 17:38 → 4TH 11-21 14:10
PROVIDERS: ADMIT Internal Medicine; ATTEND Internal Medicine
DX: A41.9 Sepsis, unspecified organism (principal); J18.9 Pneumonia, unspecified organism; J96.01 Acute respiratory failure with hypoxia; J98.01 Acute bronchospasm; I27.20 Pulmonary hypertension, unspecified; Z86.16 Personal history of COVID-19; I07.1 Rheumatic tricuspid insufficiency; G47.33 Obstructive sleep apnea (adult) (pediatric); Z20.822 Contact with and (suspected) exposure to COVID-19; E78.00 Pure hypercholesterolemia, unspecified; I10 Essential (primary) hypertension; G62.9 Polyneuropathy, unspecified; K21.9 Gastro-esophageal reflux disease without esophagitis; G89.29 Other chronic pain; M54.9 Dorsalgia, unspecified; F32.A Depression, unspecified; I25.10 Atherosclerotic heart disease of native coronary artery without angina pectoris
CPT/HCPCS: 36415; 71045; 71275; 80053; 81000; 83605; 83880; 84484; 85025; 85379; 85610; 85730; 87040; 87088; 87636; 93005; 94640; 94664; 94761